=== PATIENT | male | born 1940 | race Caucasian/White ===

== ENCOUNTER 2016-11-18 12:58 | Emergency (ER) | payer OTHER ==
[~2016-11-18] VITALS: Ht 175.3 cm; Wt 90.0 kg
[~2016-11-18 12:58] MED LIST: 1-ME1LIQ PO; ASPI81TA82 PO; BRIM.2%O OU; FISH1000 PO; GLUCTAB PO; LATA.005%O EACH EYE; LEUP30SY SC; LEVO137T2 PO; LORA0.5T PO; MELO15 PO; METO50CR OR; MEVA40TA PO; PERC5TAB12 PO; POLY10O OD; TAMS0.4C67 PO; TRAD5TAB PO
[2016-11-18 13:25] VITALS: BP 107/58; PULSE 84; RESP 18; TEMP 98.3; O2SAT 94
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
[2016-11-18] MEDS ORDERED: LOVA40TA PO (13:42)
[2016-11-18] MEDS ORDERED: LEVO137T2 PO (13:42)
[2016-11-18] MEDS ORDERED: METF500T PO (13:42)
[2016-11-18] MEDS ORDERED: ZITH250T PO (13:42)
[2016-11-18] MEDS ORDERED: TRAD5TAB PO (13:42)
[2016-11-18] MEDS ORDERED: AMLO10TA2 PO (13:42)
[2016-11-18] MEDS ORDERED: AMIT25TA9 PO (13:42)
[2016-11-18] MEDS ORDERED: LATA0.002 LEFT EYE (13:42)
[2016-11-18] MEDS ORDERED: BRIM0.2S4 LEFT EYE (13:42)
[2016-11-18] MEDS ORDERED: FISH1000 PO (13:42)
[2016-11-18] MEDS ORDERED: LORA-373 PO (13:42)
[2016-11-18] MEDS ORDERED: METO100T PO (13:42)
[2016-11-18] MEDS ORDERED: RESP: ALBUTEROL 2.5 MG/3 ML NEB (SCH) INH ONE (13:45)
[2016-11-18 14:46] VITALS: PULSE 94; O2SAT 99
[2016-11-18] MEDS ORDERED: PRED50 PO (14:48)
[2016-11-18] MEDS ORDERED: ALBUAER3 INH (14:48)
[2016-11-18] MEDS ORDERED: BENZ100 PO (14:48)
--- NOTE | 2016-11-18 14:55 | RADRPT ---
EXAM DATE/TIME: 11/18/2016 14:32 [facility] COMPARISON: CHEST SINGLE AP, December 25, 2013, 15:52. INDICATIONS : Short of breath, cough, chest pain with cough MEDICAL HISTORY : Carcinoma, prostatic. Hypertension SURGICAL HISTORY : None. ENCOUNTER: Initial ACUITY: 1 week PAIN SCORE: 8/10 LOCATION: Bilateral chest FINDINGS: A single view of the chest demonstrates a minimal density right lower lobe. Slight elevation right he midiaphragm.. Osseous structures are intact. CONCLUSION: Right basilar atelectasis with slight elevation right hemidiaphragm. Jack Perea MD on November 18, 2016 at 14:53 Board Certified Radiologist. This report was verified electronically.
== END 2016-11-18 15:02 | disposition home or self-care (01) ==
LOC: PHEFT 12:58
DX: J20.9 Acute bronchitis, unspecified (principal); Z87.891 Personal history of nicotine dependence
CPT/HCPCS: 71010; 94664; 99284; J7613

== ENCOUNTER 2017-07-19 10:56 | Emergency (ER) | payer OTHER ==
[~2017-07-19 10:56] MED LIST changes: -1-ME1LIQ PO; +ALBUAER3 INH; +AMIT25TA9 PO; +AMLO10TA2 PO; -ASPI81TA82 PO; +BENZ100 PO; -BRIM.2%O OU; +BRIM0.2S4 LEFT EYE; -GLUCTAB PO; -LATA.005%O EACH EYE; +LATA0.002 LEFT EYE; -LEUP30SY SC; +LOVA40TA PO; -MELO15 PO; +METF500T PO; +METO100T PO; -METO50CR OR; -MEVA40TA PO; -PERC5TAB12 PO; -POLY10O OD; +PRED50 PO; -TAMS0.4C67 PO; +ZITH250T PO
[2017-07-19] MEDS ORDERED: LEVO150T7 PO (11:17)
[2017-07-19] MEDS ORDERED: TIMO0.5S30 EACH EYE (11:17)
[2017-07-19 11:18] VITALS: BP 201/94; PULSE 75; RESP 16; TEMP 98.4; O2SAT 96
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
[2017-07-19 11:50] LABS: AUTOMATED NEUTROPHIL # 4.1 TH/MM3 (1.8-7.7); BASOPHIL % 0.5 % (0.0-2.0); EOSINOPHIL # 0.2 TH/MM3 (0-0.4); EOSINOPHIL % 3.2 % (0.0-4.0); HEMATOCRIT 32.9 % (39.0-51.0); HEMOGLOBIN 10.8 GM/DL (13.0-17.0); LYMPHOCYTE # 1.4 TH/MM3 (1.0-4.8); MEAN CELL VOLUME 84.4 FL (80.0-100.0); MEAN CORPUSCULAR HEMOGLOBIN 27.7 PG (27.0-34.0); MEAN CORPUSCULAR HGB CONC 32.8 % (32.0-36.0); MEAN PLATELET VOLUME 7.2 FL (7.0-11.0); MONO % 8.5 % (0.0-8.0); MONOCYTE # 0.5 TH/MM3 (0-0.9); NEUT % 65.8 % (16.0-70.0); PLATELET COUNT 245 TH/MM3 (150-450); RED CELL DISTRIBUTION WIDTH 15.6 % (11.6-17.2); WHITE BLOOD COUNT 6.2 TH/MM3 (4.0-11.0)
[2017-07-19 11:57] LABS: CALCIUM 8.7 MG/DL (8.5-10.1)
[2017-07-19 11:58] LABS: BICARBONATE 28.7 MEQ/L (21.0-32.0)
[2017-07-19 12:01] LABS: CREATININE 1.3 MG/DL (0.60-1.30)
[2017-07-19] MEDS ORDERED: amLODIPine BESYLATE 5 MG TAB PO ONE (12:30)
[2017-07-19] MEDS ORDERED: LORazepam 2 MG/ML VIAL IV PUSH ONE (12:30)
[2017-07-19 13:26] VITALS: BP 171/77; PULSE 64; O2SAT 96
--- NOTE | 2017-07-19 14:19 | RADRPT ---
EXAM DATE/TIME: 07/19/2017 13:51 [facility] COMPARISON: No previous studies available for comparison. INDICATIONS : CVA. Right sided facial droop. MEDICAL HISTORY : Hypertension. Hypothyroidism. Glaucoma. SURGICAL HISTORY : Right eye, hernia repair, bilateral hands and left knee. ENCOUNTER: Initial ACUITY: 1 day PAIN SCORE: 0/10 LOCATION: Head. TECHNIQUE: Multiplanar, multisequence MRI of the brain was performed without contrast. FINDINGS: CEREBRUM: The ventricles are normal for age. Bilateral cortical active a characteristic for patient's age. No e vidence of midline shift, mass lesion, hemorrhage or acute infarction. No extraaxial fluid collectio ns are seen. The pituitary gland and suprasellar cistern are normal in configuration. WHITE MATTER: No significant signal abnormalities are seen in the white matter. POSTERIOR FOSSA: The cerebellum and brainstem are intact. The 4th ventricle is midline. The cerebellopontine angle is unremarkable. The cerebellar tonsils are normal in position. DIFFUSION IMAGING: No focal areas of restricted diffusion are seen. No evidence of acute infarction. EXTRACRANIAL: The visualized portions of the orbits are unremarkable. Chronic sinus disease the right maxillary sin us. CONCLUSION: 1. Unremarkable MRI of the brain for patient's age. 2. No acute pathology. 3. Chronic right maxillary sinus disease. Alden Ballard MD on July 19, 2017 at 14:16 Board Certified Radiologist. This report was verified electronically.
[2017-07-19] MEDS ORDERED: PRED20 PO (14:22)
[2017-07-19] MEDS ORDERED: predniSONE 20 MG TAB PO ONE (14:30)
--- NOTE | 2017-07-20 00:10 | EKG ---
Date Performed: 07/19/2017 Time Performed: 11:40:12 PTAGE: 77 years EKG: Sinus rhythm MARKED LEFT AXIS DEVIATION NON-SPECIFIC ST/T WAVE CHANGES ABNORMAL ECG PREVIOUS TRACING : 02/01/2016 13.27 Since the prior tracing, there has been no significant iqbal DOCTOR: Harry Hernandez Interpretating Date/Time 07/20/2017 00:09:10
== END 2017-07-19 14:43 | disposition home or self-care (01) ==
LOC: PHED 10:56
DX: G51.0 Bell's palsy (principal); I10 Essential (primary) hypertension; I25.10 Atherosclerotic heart disease of native coronary artery without angina pectoris; E78.00 Pure hypercholesterolemia, unspecified; E03.9 Hypothyroidism, unspecified; E11.9 Type 2 diabetes mellitus without complications; R94.31 Abnormal electrocardiogram [ECG] [EKG]; M19.90 Unspecified osteoarthritis, unspecified site; Z85.46 Personal history of malignant neoplasm of prostate; Z79.84 Long term (current) use of oral hypoglycemic drugs; Z79.899 Other long term (current) drug therapy
CPT/HCPCS: 70551; 80048; 85025; 93005; 96374; 99285; J2060; J7512

== ENCOUNTER 2018-03-20 11:55 | Inpatient (IN) ==
[2018-03-20] MEDS ORDERED: Iohexol 350 MG/ML 100 ML Vial (for Cath Lab) IVCONTRAST ONE (11:56)
[2018-03-20 12:57] LABS: Baso % (Auto) 0.5 % (0.0-2.0); Eos # (Auto) 0.1 th/mm3 (0.0-0.4); Eos % (Auto) 2.1 % (0.0-4.0); Hematocrit 27.8 % (39.0-51.0); Hemoglobin 9.2 gm/dL (13.0-17.0); Lymph # (Auto) 1.4 th/mm3 (1.0-4.8); Lymph % (Auto) 24.8 % (9.0-44.0); Mean Corpuscular HGB Conc 33.1 % (32.0-36.0); Mean Corpuscular Hemoglobin 28.3 pg (27.0-34.0); Mean Corpuscular Volume 85.7 fL (80.0-100.0); Mean Platelet Volume 6.9 fL (7.0-11.0); Mono # (Auto) 0.6 th/mm3 (0.0-0.9); Mono % (Auto) 9.7 % (0.0-8.0); Neut # (Auto) 3.7 th/mm3 (1.8-7.7); Neut % (Auto) 62.9 % (16.0-70.0); Platelet Count 211 th/mm3 (150-450); Red Blood Count 3.24 mil/mm3 (4.50-5.90); Red Cell Distribution Width 17.9 % (11.6-17.2); White Blood Count 5.8 th/mm3 (4.0-11.0)
[2018-03-20 13:12] LABS: Activated Partial Thrombo Time 35.9 sec (23.4-31.7); INR 1.1 Ratio; Prothrombin Time 10.8 sec (9.8-11.6)
[2018-03-20 13:17] LABS: Calcium 8.8 mg/dL (8.5-10.1); Carbon Dioxide 28.8 meq/L (21.0-32.0); Potassium 4.1 meq/L (3.5-5.1)
[2018-03-20] MEDS ORDERED: Heparin 10,000 UNITS/10 ML Vial (for IV use) ONE (13:29)
[2018-03-20] MEDS: Sod Chloride 0.9% Inj 1,000 ML IV.CONT SCH (13:30)
[2018-03-20] MEDS ORDERED: fentaNYL Citrate Inj 100 MCG/2 ML Ampul ONE (13:34)
--- NOTE | 2018-03-20 14:57 | CATHPROC ---
[employer] HIS Report Study Information Study Number Admission Scheduled Start Study Start [id number] Mar 20 2018 11:55AM 03/20/2018 Mar 20 2018 1:22PM [place] [facility] Electrophysiology Study Admit Source Facility Department Other [facility] Manager Physician and Clinical Staff Initial Harry Bonner Rent Collector Arely Tena RN Rent Collector Kamari Cordova RN Recorder Zhanna Grimaldo,FORMULATOR COMPOUNDER TECH2 Scrub Kristin Winters,MANAGER OF SUSTAINABILITY TECH2 Procedures Performed Procedure Location (Site) Vessel Name Coronary Angiograms LCA Left Coronary Coronary Angiograms RCA Right Coronary IVUS Lft Main Left Coronary Wire insertion Radial (right) Radial Art. Equipment Time Assembler Leather Goods Description Size Mfg Part Number Used/Scraped WIRE, BALANCE MIDDLEWEIGHT [id number] 14:19 [employer] 190CM Used 190CM *[id number] CATHETER, FR5 SWAN DAMIAN 13:55 [place] [employer] [place] FR 5 [id number] *[id number] Used MONITOR TRANSDUCER, TRUWAVE [id number] 13:23 STOCKTON PATEL * Used W/STOCKCOCK *[id number] 534-518T *[id number] 534-523T *[id number] 13:23 RebelMouse BLANKET,WARM AIR CCL * Used *[id number] 13:23 RebelMouse PACK, CCL CUSTOM * Used *[id number] 13:23 RebelMouse SUPPORT, ARTERIAL ADULT 11229 *[id number] Used [id number] 14:16 MEDTRONIC/AVE EBU 3.5 Z2 GUIDE CATHETER FR 6 Used *[id number] BAND, RADIAL COMPRESSION TR [id number] 14:40 [employer] 29CM Used LARGE 29 *[id number] 13:23 [employer] WIRE, EXCHANGE 260CM 3MMJ 260CM Used *[id number] 13:23 NAMIC MANIFOLD, 4 PORT * Used *[id number] 13:23 NYCOMED OMNIPAQUE, 350 MG, 150ML 150ML [id number] Used SHEATH, FR6 TRANSRADIAL 80-1060 13:53 TERUMO [employer] FR 6 Used SLENDER 10CM *[id number] SHEATH, FR6 TRANSRADIAL 80-1060 13:23 TERUMO [employer]ICAL FR 6 Used SLENDER 10CM *[id number] CATHETER, MAKAH EYE [place] [id number] 14:21 [employer]OL[employer] Used IMAGING *[id number] CATHETER, MAKAH EYE [place] [id number] 14:27 VOLCANO Used IMAGING *[id number] Equipment Model, Serial, Lot Number and Expiration Data Description Model Number Serial Number Lot Number Expiration Date CATHETER, MAKAH EYE [place]-B[place]OXI 32394 [id number] 12-12-2019 IMAGING CATHETER, MAKAH EYE [place] [id number] 10-12-2019 IMAGING History: Current Medications Medication Dosage/Unit Route Frequency Last Date/Time Taken LOPRESSOR Glucophage Statins (any) Synthroid Glypizide NORVASC History: Allergies Allergy Reaction No Known Allergies History: Risk Factors Family History of Hypertension Dyslipidemia Previous DC Previous Heart Failure Premature CAD Yes Yes No No No Prior Valve Prior PCI Prior CABG Surgery No No No Cerebrovascular Peripheral Artery Chronic Lung On Dialysis Diabetes Diabetes Therapy Disease Disease Disease No No No Yes Yes Oral History: Symptoms/Diagnosis Selection Items Chest pain History: Stress Tests Stress or Imaging Studies Performed Yes Standard Exercise Stress Test No Stress Echo No Stress Test SPECT Stress Test SPECT Result Stress Test SPECT Ischemia Risk/Extent Yes Positive Low Stress Test CMR No Cardiac CTA Coronary Calcium Score No No History: Other Disease Selection Items Gerd History: Other Current Smoker Method Quit Packs a Day Years Used Pack Years No Cigarettes 10 Years Ago 1 50 50 Labs Hgb (g/dl) Hct (%) WBC (l/cumm) Platelets (thousands) 11.60-17.00 35.00-51.00 4.00-11.00 150.00-450.00 9.2 27.8 5.8 211 Glucose (mg/dl) BUN (mg/dl) Creatinine (mg/dl) BUN:Creatinine (1:x) 74.00-106.00 7.00-18.00 0.50-1.30 10.00-20.00 107 26 1.4 18.6 Na (meq/l) K (meq/l) 136.00-145.00 3.50-5.10 140 4.1 INR (PTT:PT) 0.90-1.10 1.1 CPK-MB (ng/ML) 0.50-3.60 Not Drawn Medication Medication Total Dose (Bolus/Oral) Medication Total Dosage/Unit 1% XYLOCAINE 10 mL FENTANYL 100 mcg HEPARIN 5400 units RADIAL COCKTAIL 5 mL (Bolus) Medications (Bolus/Oral) Medication Time Given Dosage/Unit Administered By Reason FENTANYL 03/20/2018 1:47:06 PM 50 mcg Arely Tena 50 mcg FENTANYL given in lab by Arely Tena RN in Left Antecubital via Peripheral IV. Ordered by Harry Hernandez 1% XYLOCAINE 03/20/2018 1:47:12 PM 5 mL Harry Hernandez 5 mL 1% XYLOCAINE given in lab by Harry Hernandez in Right Radial via Subcutaneous. Ordered by Harry Fontana RADIAL COCKTAIL 03/20/2018 1:49:26 PM 5 mL (Bolus) Harry Hernandez 5 mL (Bolus) RADIAL COCKTAIL given in lab by Harry Hernandez in Right Radial via Radial. Using [S olution Name]. Ordered by Harry Hernandez Reason: Ntg 200mcg Verapamil 2.5mg Heparin 3600U. 1% XYLOCAINE 03/20/2018 1:49:42 PM 5 mL Harry Hernandez 5 mL 1% XYLOCAINE given in lab by Harry Hernandez in Right Antecubital via Subcutaneous. Ordered by Harry Hernandez HEPARIN 03/20/2018 2:17:04 PM 5400 units Arely Tena 5400 units HEPARIN given in lab by Arely Tena, DHARA in Left Antecubital via Peripheral IV. Ordered by Harry Hernandez FENTANYL 03/20/2018 2:31:25 PM 50 mcg Arely Tena 50 mcg FENTANYL given in lab by Arely Tena, DHARA in Left Antecubital via Peripheral IV. Ordered by Harry Hernandez Medication (Drip) Medication Time Given Dosage/Unit Concentration/Unit Diluent (ml) Solution IV Solutions 03/20/2018 1:23:38 PM 50 mL (IV) NaCl .9 Patient arrived on IV Solutions in Left Antecubital via Peripheral IV. Pump/Drip Flow using NaCl .9. Initial Case Assessment Cardiovascular HR NIBP Chest Pain 91 148/91 0 Neurological State Oriented to time-place- Alert Moves all extremities person Respiration - General Respiration Rate SpO2 (%) (B/min) 20 96 Final Case Assessment Cardiovascular HR Rhythm NIBP Chest Pain 78 sr 157/84 0 Circulatory - Right Pulses Dorsalis Pedis Femoral Brachial 2 2 2 Scale (0,1,2,3,4,d) Scale (0,1,2,3,4,d) Neurological State Oriented to time-place- Alert Moves all extremities person Respiration - General Respiration Rate SpO2 (%) (B/min) 12 93 Chronological Log Time Study Chronological Log 13:15:16 Patient arrived via Bed. 13:15:21 Patient Name, D.O.B, / Armband Verified By R.N. 13:17:29 Pre-op and post- op instructions given; patient acknowledges understanding of instructions. Vitals capture started with the following parameters, Patient=Adult, Interval=5 min, Initial Pr lcicqe=533 mmHg, 13:22:13 Deflation Rate=5 mmHg, Cuff placed on Left Arm 13:22:27 Consent signed by the physician and the patient and verified by the Cultural [facility] Manager staff. 13:22:33 Verbal Stimulation=2 Physical Stimulation=2 Airway=2 Respiration=2 TOTAL=8. (0=absent, 1=li mited, 2=present) 13:23:31 Presedation assessment performed by Cultural Centre Manager RN. 13:23:32 HR=81 bpm, NHHA=356/91 mmhg, SpO2=96.0 %, Resp=14 B/min, Pain=0, Reich=2 13:23:34 Patient has been NPO for More than 6Hrs. 13:23:35 Skin Breakdown-none 13:23:36 Raf Prominences Protected 13:23:37 A # 20 IV was noted in the Antecubital (left). Grade = 0 13:23:38 Patient arrived on IV Solutions in Left Antecubital via Peripheral IV. Pump/Drip Flow using NaCl .9. 13:23:40 History and physical on the chart or being dictated. Assessment: Initial Case, HR=91 BPM, HAVA=347/91 mmhg, Chest Pain=0 13:23:40 Neurological: State=Alert, Ox3, HINOJOSA Respiration: Resp=20 B/min, SpO2=96 % 13:27:56 HR=82 bpm, FWRY=474/99 mmhg, SpO2=95.0 %, Resp=15 B/min 13:30:54 Right Radial, brachial and groin(s) prepped with 2% chlorhexidine, and draped after a 3 min . waiting time. 13:32:46 Reference ECG taken 13:32:56 HR=79 bpm, PMQX=498/99 mmhg, SpO2=95.0 %, Resp=17 B/min 13:36:35 Pressure channel 1 zeroed. 13:37:59 HR=75 bpm, FEMJ=171/79 mmhg, SpO2=94.0 %, Resp=20 B/min 13:40:40 MD arrived. 13:43:00 HR=76 bpm, AEDG=514/76 mmhg, SpO2=95.0 %, Resp=8 B/min Time Out. Correct patient, correct procedure, correct physician, labs, allergies, and equipment verified with dental laboratory manager 13:46:53 team present. Fire risk assesment completed (see hard stop sheet for coding). Time Out Conc urred by MD and individual staff in procedure. 13:47:04 Case Start 50 mcg FENTANYL given in lab by Arely Tena RN in Left Antecubital via Peripheral IV. Orde red by David 13:47:06 Harry Guidry. 5 mL 1% XYLOCAINE given in lab by Harry Hernandez in Right Radial via Subcutaneous. Ordered by David 13:47:12 Harry Carter 13:47:57 HR=77 bpm, BOGF=991/86 mmhg, SpO2=96.0 %, Resp=27 B/min 13:48:13 Access site was Right Radial Artery . A SHEATH, FR6 TRANSRADIAL SLENDER 10CM FR 6 was advanced into the Radial (right) using the Perc utaneous 13:49:02 technique. 5 mL (Bolus) RADIAL COCKTAIL given in lab by Harry Hernandez in Right Radial via Radial. Us ing [Solution Name]. 13:49:26 Ordered by Harry Hernandez. Reason: Ntg 200mcg Verapamil 2.5mg Heparin 3600U. 5 mL 1% XYLOCAINE given in lab by Harry Hernandez in Right Antecubital via Subcutaneous. Or dered by David, 13:49:42 Harry Carter 13:51:57 Access site was Right Brachial Vein. Right A SHEATH, FR6 TRANSRADIAL SLENDER 10CM FR 6 was advanced into the Brach. Vein (right) using the Percutaneous 13::54 technique. 13:52:58 HR=74 bpm, WSJR=666/70 mmhg, SpO2=89.0 %, Resp=17 B/min 13:54:05 A CATHETER, FR5 SWAN DAMIAN MONITOR FR 5 was inserted via Brach. Vein (right) Recorded Pressure: PCW, HR=77, Condition=Condition 1 13:55:39 (Pulmonary Capillary Wedge) PCW Recorded Pressure: MPA, HR=67, Condition=Condition 1 13:57:37 (Main Pulmonary Artery) MPA 13:57:59 HR=70 bpm, TZSH=681/71 mmhg, SpO2=87.0 %, Resp=14 B/min 13:58:08 Saturation: Site=PA (Pulmonary Artery) , O2=41.7 %, Hgb=9.2 gm/dl, Condition=Condition 1. U sed in calculation. Recorded Pressure: RV, HR=70, Condition=Condition 1 13:58:50 (Right Ventricle) RV 10/02/11 Recorded Pressure: RA, HR=69, Condition=Condition 1 13:59:27 (Right Atrium) RA 13:59:42 Saturation: Site=Ao (Aorta) , O2=92.8 %, Hgb=9.2 gm/dl, Condition=Condition 1. Used in calc ulation. 14:00:13 [place] Admian Catheter Removed A JR 5.0 INFINITI CATHETER FR 5 was advanced over a wire. OMNIPAQUE, 350 MG, 150ML 150ML was us ed for 14:01:50 injections. 14:02:56 HR=75 bpm, MQFT=019/73 mmhg, SpO2=91.0 %, Resp=26 B/min Recorded Pressure: LV, HR=74, Condition=Condition 1 14:04:51 (Left Ventricle) LV 137/10/15 Recorded Pressure: LV, Ao, HR=73, Condition=Condition 1 14:05:12 (Left Ventricle) LV 142/10/16, (Aorta) Ao 136/63/95 14:08:01 HR=76 bpm, GASS=589/78 mmhg, SpO2=91.0 %, Resp=21 B/min 14:09:14 The RCA was injected and visualized at various angles. OMNIPAQUE, 350 MG, 150ML 150ML used . After removing the current catheter a JL 3.5 INFINITI CATHETER FR 5 was advanced over a WIRE, E XCHANGE 260CM 14:10:08 3MMJ 260CM. 14:12:53 The LCA was injected and visualized at various angles. OMNIPAQUE, 350 MG, 150ML 150ML used . 14:13:02 HR=75 bpm, ZMCZ=219/70 mmhg, SpO2=92.0 %, Resp=15 B/min After removing the current catheter a EBU 3.5 Z2 GUIDE CATHETER FR 6 was advanced over a WIRE, EXCHANGE 14:16:34 260CM 3MMJ 260CM. 5400 units HEPARIN given in lab by Arely Tena, RN in Left Antecubital via Peripheral IV. O rdered by David, 14:17:04 Harry Carter 14:17:59 HR=80 bpm, JPXT=259/84 mmhg, SpO2=93.0 %, Resp=9 B/min 14:19:22 A WIRE, BALANCE MIDDLEWEIGHT 190CM 190CM was inserted via Radial (right). 14:23:02 HR=78 bpm, EYRP=237/82 mmhg, SpO2=89.0 %, Resp=17 B/min 14:28:01 HR=74 bpm, CMKP=237/77 mmhg, SpO2=94.0 %, Resp=32 B/min 14:29:45 An CATHETER, MAKAH EYE [place]OXI IMAGING was advanced through the lesion. Images saved o [employer] IVUS hard drive 14:30:04 IVUS in progress using CATHETER, MAKAH EYE [place] IMAGING Mean Luminal Area measured 6 50 mcg FENTANYL given in lab by Arely Tena, DHARA in Left Antecubital via Peripheral IV. Orde red by David, 14:31:25 Harry Carter 14:33:04 HR=77 bpm, EDIE=502/76 mmhg, SpO2=93.0 %, Resp=12 B/min 14:35:54 IVUS catheter removed 14:37:19 Wire removed Recorded Pressure: AoP, HR=82, Condition=Condition 1 14:37:27 (AO post) AoP 159/68/110 14:38:03 HR=79 bpm, FBJH=864/84 mmhg, SpO2=92.0 %, Resp=12 B/min 14:38:33 Catheter was removed 14:38:34 Activated Clotting Time Drawn 14:38:48 Case End (Physician broke scrub) Radial Compression Device Used. 14 mLs of air placed in BAND, RADIAL COMPRESSION TR LARGE 29 29 CM. Affected 14:40:24 hand 93 % O2 saturation. 14:42:35 Vitals capture stopped. 14:42:43 No case complications noted. 14:42:44 Cine recording checked. Assessment: Final Case, HR=78 BPM, Rhythm=sr, OYFG=027/84 mmhg, Chest Pain=0 Right Pulses: Xavi Ped=2, Femoral=2, Brachial=2 14:44:46 Neurological: State=Alert, Ox3, HINOJOSA Respiration: Resp=12 B/min, SpO2=93 % 14:46:27 ACT (Normal Range 90-180) = 332 14:49:54 Patient moved to bed 14:50:52 Patient transported to DOCU End Study - Contrast Media Used In Study Contrast Total Opened (mL) Total Used (mL) Total Wasted (mL) Omnipaque 75 75 0 End Study - Maximum Contrast Load Max Contrast Load (mL) 323.2 End Study - Radiation Exposure Fluoro Time (minutes) 12.0 End Study - Sheaths Sheaths Pulled By Sheath Hold Time (min) Kristin Winters End Study - Patient Disposition Complications Transferred To Interventional Outcome No Telemetry Bed No attempt made
[2018-03-20] MEDS: Metoprolol Tartrate 50 MG Tablet PO SCH (20:28)
[2018-03-20] MEDS: Heparin Drip 25,000 UNIT/250 ML BAG IV.CONT PRN (20:29)
[2018-03-20] MEDS: Polymyxin/Trimethop Opth Drops 10 ML Bottle EACH EYE SCH ×2 (21:00→22:27)
[2018-03-20] MEDS: Brimonidine 0.2% Opth Drops 5 ML Bottle EACH EYE SCH (22:26)
[2018-03-20] MEDS: LORazepam 0.5 MG Tablet PO PRN (22:26)
--- NOTE | 2018-03-21 02:00 | MB ---
cc: Harry Hernandez DO DATE: 03/20/2018 REASON FOR CONSULTATION: Coronary artery disease. HISTORY OF PRESENT ILLNESS: Devyn Lambert is a pleasant 77-year-old male, whom I see in the office and previously underwent stress testing, which showed no significant ischemia. He continued to have chest pain and shortness of breath with very little activity, and his states that he can barely walk to the mailbox and back without stopping. He has also started noticing chest burning with long walks, and this has gotten more frequent. Because of this, he underwent cardiac catheterization. During the procedure, he was found to have significant left main disease and a left dominant system. Because of this, he was recommended admission and placement on a heparin drip as well as evaluation by CT surgery. In seeing him, he is currently hemodynamically stable without chest pain or shortness of breath. PAST MEDICAL HISTORY: 1. Coronary artery disease. 2. Anxiety. 3. Aortic valve sclerosis. 4. Chronic kidney disease stage II. 5. COPD. 6. Depression. 7. Diabetes mellitus. 8. Hypertension. 9. Hyperlipidemia. 10. History of prostate cancer. PAST SURGICAL HISTORY: 1. Cardiac catheterization (03/20/2018) with 60% left main disease (IVUS 6.0 sq mm) and mild luminal irregularities, otherwise in a left dominant system. 2. Left carpal tunnel release. 3. Cystoscopy. 4. Eye surgery. 5. Hernia repair. 6. Knee arthroscopy. 7. Throat surgery. 8. Tonsillectomy. 9. Trigger finger release. ALLERGIES: NO KNOWN DRUG ALLERGIES. MEDICATIONS: 1. Polymyxin B ophthalmic drop. 2. Metoprolol tartrate 50 mg b.i.d. 3. Metformin 500 mg b.i.d. 4. Lovastatin 40 mg daily. 5. Ativan 0.5 mg b.i.d. as needed. 6. Fish oil 1 cap daily. 7. Synthroid 150 mcg daily. 8. Latanoprost 1 drop every night. 9. Glipizide 5 mg daily. 10. Brimonidine 0.2% t.i.d. 11. Norvasc 5 mg daily. 13. Alendronate 70 mg weekly. FAMILY HISTORY: Mother had colon cancer. He had a sister with brain cancer. His father had congestive heart failure. SOCIAL HISTORY: The patient rarely drinks alcohol. He previously smoked, stopping around 10 years ago. REVIEW OF SYSTEMS: Fourteen systems were reviewed including osteopathic. Pertinent positives and negatives above, otherwise negative. PHYSICAL EXAMINATION: VITAL SIGNS: Temperature 98.5, heart rate 72, blood pressure 146/79, respirations 16, pulse oximetry 99% on room air. GENERAL: The patient appears well, in no acute distress. Alert, awake, and oriented x3. HEENT: Extraocular muscles intact. Mucous membranes moist. NECK: Supple. No JVD at 45 degrees. No carotid bruits heard bilaterally. Carotid upstroke is brisk in nature. HEART: Regular rate and rhythm. Positive first and second heart tones with no noted murmurs, gallops, or rubs. LUNGS: Clear to auscultation bilaterally. No wheezes, rales, or rhonchi. ABDOMEN: Soft, nontender, nondistended. No organomegaly noted. EXTREMITIES: No clubbing, cyanosis, or edema. Femoral and distal pulses are intact bilaterally. NEUROLOGIC: No focal deficits. SKIN: Warm, dry, and intact. OSTEOPATHIC: No kyphoscoliosis, lordosis, or paraspinal tender points. LABORATORY DATA: Hemoglobin 9.2, hematocrit 27.8, platelets 211. Potassium 4.1, BUN 26, creatinine 1.46. IMPRESSION: 1. Unstable angina, [place] anginal class III. 2. Multivessel coronary artery disease with left main disease in the left dominant system. 3. Hypertension. 4. Hyperlipidemia. 5. General anxiety. 6. Depression. RECOMMENDATIONS: 1. Mr. Lambert underwent cardiac catheterization and was found to have significant left main disease and a left dominant system. Because of this, he will be recommended consideration of coronary artery bypass grafting. 2. Due to the significance of his disease, specifically in a left dominant system, I have recommended that he be admitted and placed on a heparin drip. Heparin drip will be started 1 hour after TR band is placed. 3. He underwent an echocardiogram in the office in 12/2017 and on this was found to have an ejection fraction of 55%-60% with stage I diastolic dysfunction, mild mitral regurgitation, and trace aortic regurgitation. 4. Cardiothoracic surgery will be consulted, and I discussed the case with Dr. Hernandez. 5. Further recommendations will be made based on the hospital course. Thank you for allowing me to see Devyn Lambert. If there are any questions, please do not hesitate to call. DO NILES Cox/roland , 01:07 AM , 01:18 AM
--- NOTE | 2018-03-21 02:09 | MA ---
cc: Harry Hernandez DO DATE: 03/20/2018 PROCEDURES: Left heart catheterization, right heart catheterization, coronary angiogram, intravascular ultrasound of left main, ultrasound-guided access. PREPROCEDURE DIAGNOSIS: Continued chest pain and shortness of breath, concerning for coronary insufficiency ([place] anginal class III) with a normal stress test. POSTPROCEDURE DIAGNOSES: Left main disease in a left dominant system, mild pulmonary hypertension. MEDICATIONS: Fentanyl 100 mcg, heparin 9000 units, nitroglycerin 200 mcg, verapamil 2.5 mg. CONTRAST USED: 75 mL FLUOROSCOPY: 12.0 minutes. MONITORED SEDATION: 0 minutes. FRAILTY SCORE: 4 ESTIMATED BLOOD LOSS: 10 mL PROCEDURAL SUMMARY: Devyn Lambert is a pleasant 77-year-old male, whom I see in the office and underwent stress testing which showed no ischemia. He continued to have chest pain and shortness of breath with minimal exertion, and because of this, he was recommended cardiac catheterization. Risks, benefits, and alternatives were explained to him, and he consented to such. He was brought to the lab and prepped in the usual sterile fashion. The right radial artery was accessed using modified Seldinger technique and placement of a 5/6-[place]amb[place] slender sheath. This was easily aspirated and flushed. Right brachial vein was accessed using a modified Seldinger technique and ultrasound guidance and placement of a 5/6-[place] sheath. This was easily aspirated and flushed. A [place] catheter was advanced from the brachial vein to a wedge position. Oxygenations as well as pressures were done in a standard pullback fashion throughout the heart. [place] catheter was removed. A JR5 was advanced to the ascending aorta and across the aortic valve for measurement of left ventricular pressure. This was pulled back across the aortic valve showing no significant gradient of aortic stenosis. JR5 was used for selective angiography of the right coronary artery system. This is exchanged out for a JL3.5 which was used for selective angiography of the left coronary artery system. Due to significant dampening with a JL3.5, I felt that the left main needed to be further evaluated. An EBU 3.5 guide was engaged in the left main. The patient was given additional heparin as an anticoagulant. BMW wire was advanced down the LAD. IVUS catheter was placed into the LAD, and recordings were done upon pullback. Review of the images shows that the ostial left main has a minimal luminal area of 6.0 sq mm. Wire was removed, and final angiogram shows no disruption of the coronary anatomy. The radial band was placed over the arteriotomy site for hemostasis. The patient left the catheterization lab cardiovascularly stable. FINDINGS: Left main: Normal-sized vessel with 60% ostial stenosis. It bifurcates into an LAD and circumflex. LAD: Moderate size vessel with mild luminal irregularities throughout the proximal portion. Mid portion appears to have 30% disease. Distally, no significant disease. It gives off 1 major diagonal with no significant disease. LEFT CIRCUMFLEX: Moderate size vessel, which gives off 2 obtuse marginals as well as a posterior descending branch. It has no significant disease throughout. RCA: Small, nondominant vessel which supplies multiple RV branches. HEMODYNAMICS: RA 9. RV 39/9, RVEDP 11. PA 33/17, mean PA 24. Wedge 16. LVEDP 16. IMPRESSION: 1. Unstable angina, [place] anginal class III. 2. Left main disease (minimal luminal area of 6.0 sq mm) in a left dominant system. 3. Mild pulmonary hypertension (mean pulmonary artery pressure of 24). RECOMMENDATIONS: 1. Mr. Lambert appears to have significant left main disease in a left dominant system. As he has had continued chest pain and shortness of breath with minimal exertion, I feel that he needs to be admitted and placed on heparin drip in anticipation of surgery. 2. CT surgery has been consulted, and I discussed the case with Dr. Carrera who will see him in consultation in the morning. 3. Previous echocardiogram in the office (12/2017) showed normal function with mild mitral regurgitation and trace aortic regurgitation. 4. Further recommendations will be made based on hospital course. Thank you for allowing me to see Devyn Lambert. If you have any questions, please do not hesitate to call. Harry Hernandez DO VGP/rm , 01:16 AM , 01:29 AM
[2018-03-21 02:39] LABS: Baso % (Auto) 0.3 % (0.0-2.0); Eos # (Auto) 0.1 th/mm3 (0.0-0.4); Eos % (Auto) 1.5 % (0.0-4.0); Hematocrit 25.3 % (39.0-51.0); Lymph # (Auto) 1.8 th/mm3 (1.0-4.8); Mean Corpuscular HGB Conc 35.6 % (32.0-36.0); Mean Corpuscular Hemoglobin 29.3 pg (27.0-34.0); Mean Corpuscular Volume 82.2 fL (80.0-100.0); Mean Platelet Volume 6.6 fL (7.0-11.0); Mono # (Auto) 0.7 th/mm3 (0.0-0.9); Mono % (Auto) 10.2 % (0.0-8.0); Neut # (Auto) 4.4 th/mm3 (1.8-7.7); Platelet Count 194 th/mm3 (150-450); Red Blood Count 3.08 mil/mm3 (4.50-5.90); Red Cell Distribution Width 17.7 % (11.6-17.2); White Blood Count 7.1 th/mm3 (4.0-11.0)
[2018-03-21 02:55] LABS: Calcium 8.5 mg/dL (8.5-10.1); Potassium 3.9 meq/L (3.5-5.1)
[2018-03-21] MEDS: Polymyxin/Trimethop Opth Drops 10 ML Bottle EACH EYE SCH ×6 (04:48→18:34)
[2018-03-21] MEDS: Levothyroxine 150 MCG Tablet PO SCH (05:04)
[2018-03-21] MEDS ORDERED: Non-Formulary Drug (Omega-3 Fatty Acids-Fish Oil [Fish Oil] 1 CAP) PO SCH (09:00)
[2018-03-21] MEDS ORDERED: glipiZIDE 5 MG Tablet PO SCH (09:00)
[2018-03-21] MEDS: Brimonidine 0.2% Opth Drops 5 ML Bottle EACH EYE SCH ×2 (09:20→18:34)
[2018-03-21] MEDS: Metoprolol Tartrate 50 MG Tablet PO SCH ×2 (09:20→21:17)
[2018-03-21] MEDS: amLODIPine 5 MG Tablet PO SCH (09:20)
[2018-03-21] MEDS ORDERED: Dextrose 50% in Water 50 ML Vial IV.PUSH PRN ×2 (10:03→22:21)
--- NOTE | 2018-03-21 10:03 | P.HP ---
History of Present Illness Primary Care Physician: Nixon Mata MD History of Present Illness: 77-year-old white male admitted for unstable angina. Patient was in his usual state of health until over the last month or so when his noted that he began having increasing episodes of exertional dyspnea with exertional angina. Patient denies having nausea vomiting, denies any diaphoresis with these episodes. No lower extremity edema. Says he underwent an outpatient cardiac catheterization scheduled by his flue cleaner and subsequently was admitted afterwards based upon his catheterization findings which included significant left main disease in the left dominant system. Patient has been started on a heparin drip by cardiology and CT surgery has been consulted. Inpatient Certification: I certify that the inpatient services were ordered in accordance with Medicare regulations governing the order. This includes certification that hospital inpatient services are reasonable and necessary and in the case of services not specified as inpatient-only under 42 CFR 419.22(n), that they are appropriately provided as inpatient services in accordance to with the 2-midnight benchmark under 43 CFR 412.3(e) Estimated Total Length of Stay (Days): 7 Plans for Post Hospital Care: Not yet determined Review of Systems All other systems reviewed negative except as stated in HPI [facility] - History History Provided By: Patient - Medical History Medical History: Medical History (Last Reviewed 03/21/18 @ 10:00 by Serg Galicia MD) Anxiety Aortic stenosis CKD (chronic kidney disease), stage II HLD (hyperlipidemia) HTN (hypertension) Hypothyroid Neuropathy Prostate cancer Shortness of breath - Family History Family History: Family History (Last Updated 03/21/18 @ 10:01 by Serg Galicia MD) Other Diabetes - Social History I have reviewed the patient's Social History: Yes - Tobacco History Smoking Status: Former smoker - Alcohol History How Often Do You Have a Drink Containing Alcohol: 2 to 4 times a month Medications and Allergies Active Medications: Active Medications Amlodipine Besylate (Norvasc) 5 mg PO DAILY [facility] Aspirin (Ecotrin) 81 mg PO DAILY [facility] Brimonidine Tartrate (Alphagan 0.2% Opth Drops) 1 drops EACH EYE TID [facility] Last Admin: 03/20/18 22:26 Dose: 1 drops Glipizide (Glucotrol) 5 mg PO DAILY [facility] Sodium Chloride (Ns Inj) 1,000 mls @ 30 mls/hr IV.CONT .Q24H [facility] Last Infusion: 03/20/18 17:47 Dose: 30 mls/hr Heparin Sodium/Dextrose (Heparin/D5w 25,000 U/250 Ml) 25,000 unit in 250 mls @ 0 mls/hr IV.CONT TITRATE PRN; Protocol PRN Reason: Per Protocol Last Titration: 03/21/18 02:55 Dose: 1,100 units/hr, 11 mls/hr Latanoprost (Xalatan 0.005% Opth Drops) 1 drop EACH EYE QPM [facility] Levothyroxine Sodium (Synthroid) 150 mcg PO DAILY@0600 [facility] Last Admin: 03/21/18 05:04 Dose: 150 mcg Lorazepam (Ativan) 0.5 mg PO BID PRN PRN Reason: Anxiety Last Admin: 03/20/18 22:26 Dose: 0.5 mg Metoprolol Tartrate (Lopressor) 50 mg PO BID [facility] Last Admin: 03/20/18 20:28 Dose: 50 mg Polymyxin/Trimethoprim Sulfate (Polytrim Opth Drops) 1 drop EACH EYE Q3H [facility] Last Admin: 03/21/18 05:04 Dose: Not Given Pravastatin Sodium (Pravachol) 40 mg PO DAILY [facility] Sodium Chloride (Ns Flush) 2 ml IV.FLUSH BID [facility] Last Admin: 03/20/18 20:31 Dose: 2 ml Sodium Chloride (Ns Flush) 2 ml IV.FLUSH PRN PRN PRN Reason: FLUSH AFTER USING IV ACCESS Allergies Allergy/AdvReac Type Severity Reaction Status Date / Time No Known Allergies Allergy Verified 03/20/18 12:49 Home Medications Medication Instructions Recorded Confirmed Type alendronate 70 mg PO QWEEK 03/20/18 03/20/18 History amlodipine 5 mg PO DAILY 03/20/18 03/20/18 History brimonidine 1 drp OPHTHALMIC (EYE) TID 03/20/18 03/20/18 History glipizide 5 mg PO DAILY 03/20/18 03/20/18 History latanoprost 1 drp OPHTHALMIC (EYE) QPM 03/20/18 03/20/18 History levothyroxine 150 mcg PO DAILY 03/20/18 03/20/18 History lorazepam 1 tab PO BID PRN 03/20/18 03/20/18 History lovastatin 40 mg PO DAILY 03/20/18 03/20/18 History metformin 500 mg PO BID 03/20/18 03/20/18 History metoprolol tartrate 50 mg PO BID 03/20/18 03/20/18 History omega-3 fatty acids-fish oil [Fish 1 cap PO DAILY 03/20/18 03/20/18 History Oil] polymyxin B sulf-trimethoprim 1 drp OPHTHALMIC (EYE) Q3H 03/20/18 03/20/18 History Exam Vital signs: Vital Signs 03/20/18 13:01 03/20/18 15:02 03/20/18 17:06 Temperature 98.5 F Pulse Rate 72 88 Respiratory Rate 16 16 Blood Pressure 146/79 H 150/76 H Pulse Oximetry 99 95 94 L 03/20/18 20:00 03/20/18 21:00 03/20/18 22:00 Temperature 98.1 F Pulse Rate 91 H 91 H 89 Respiratory Rate 20 Blood Pressure 168/86 H Pulse Oximetry 95 03/20/18 23:00 03/21/18 00:00 03/21/18 02:00 Temperature 98.0 F Pulse Rate 81 79 78 Respiratory Rate 20 Blood Pressure 143/79 H Pulse Oximetry 95 03/21/18 04:00 03/21/18 06:00 03/21/18 07:00 Temperature 98.2 F Pulse Rate 85 83 89 Respiratory Rate 20 Blood Pressure 145/76 H Pulse Oximetry 96 03/21/18 08:36 Temperature 98.3 F Pulse Rate 87 Respiratory Rate 18 Blood Pressure 157/82 H Pulse Oximetry 95 Intake & Output 03/20/18 03/21/18 03/21/18 18:59 06:59 18:59 Intake Total 740 / 740 240 / 240 Output Total 150 / 150 400 / 400 Balance 590 / 590 -160 / -160 Weight 90.5 kg 90.7 kg Intake: IV 500 / 500 NS Inj 1,000 ML @ 30 mls/hr IV. 500 / 500 CONT .Q24H [facility] Rx#:[id number] Oral 240 / 240 240 / 240 Output: Urine 150 / 150 400 / 400 Other: Date of Last Bowel Movement 03/20/18 # Bowel Movements 0 Weight On Admission 90.5 kg Narrative: VS: afebrile GENERAL: Well-nourished elderly white male, no acute distress SKIN: Warm and dry. EYES: No scleral icterus. No injection or drainage. ENT: No nasal bleeding or discharge. Mucous membranes pink and moist. CARDIOVASCULAR: Regular rate and rhythm. no murmurs RESPIRATORY: No accessory muscle use. Clear to auscultation. Breath sounds equal bilaterally. GASTROINTESTINAL: Abdomen soft, non-tender, nondistended. Extremities: No clubbing, cyanosis, or edema. No obvious deformities. MUSCULOSKELETAL:adequate muscle bulk and tone for age and habitus NEUROLOGICAL: Awake and alert. No obvious cranial nerve deficits. No facial droop nor slurred speech noted. PSYCHIATRIC: Appropriate mood and affect; insight and judgment normal. Results - Labs CBC & Chem 7: 03/21/18 02:30 03/21/18 02:30 Labs: Laboratory Results - last 24 hr 03/20/18 03/20/18 03/20/18 12:30 12:30 12:30 WBC 5.8 RBC 3.24 L Hgb 9.2 L Hct 27.8 L MCV 85.7 MCH 28.3 MCHC 33.1 RDW 17.9 H Plt Count 211 MPV 6.9 L Neut % (Auto) 62.9 Lymph % (Auto) 24.8 [place] % (Auto) 9.7 H Eos % (Auto) 2.1 Baso % (Auto) 0.5 Neut # (Auto) 3.7 Lymph # (Auto) 1.4 [place] # (Auto) 0.6 Eos # (Auto) 0.1 Baso # (Auto) 0.0 WBC Differential . Differential Comment Auto diff final PT 10.8 INR 1.1 APTT 35.9 H Sodium 140 Potassium 4.1 Chloride 106 Carbon Dioxide 28.8 Anion Gap 5 BUN 26 H Creatinine 1.46 H Estimated GFR 47 L Random Glucose 107 H Calcium 8.8 03/20/18 03/21/18 03/21/18 23:34 02:30 02:30 WBC 7.1 RBC 3.08 L Hgb 9.0 L Hct 25.3 L MCV 82.2 D MCH 29.3 MCHC 35.6 RDW 17.7 H Plt Count 194 MPV 6.6 L Neut % (Auto) 62.0 Lymph % (Auto) 26.0 [place]lin % (Auto) 10.2 H Eos % (Auto) 1.5 Baso % (Auto) 0.3 Neut # (Auto) 4.4 Lymph # (Auto) 1.8 [place]lin # (Auto) 0.7 Eos # (Auto) 0.1 Baso # (Auto) 0.0 WBC Differential . Differential Comment Auto diff final PT INR APTT 39.9 H Sodium 139 Potassium 3.9 Chloride 105 Carbon Dioxide 26.0 Anion Gap 8 BUN 23 H Creatinine 1.36 H Estimated GFR 51 L Random Glucose 93 Calcium 8.5 03/21/18 02:30 WBC RBC Hgb Hct MCV MCH MCHC RDW Plt Count MPV Neut % (Auto) Lymph % (Auto) [place]lin % (Auto) Eos % (Auto) Baso % (Auto) Neut # (Auto) Lymph # (Auto) [place] # (Auto) Eos # (Auto) Baso # (Auto) WBC Differential Differential Comment PT INR APTT 38.9 H Sodium Potassium Chloride Carbon Dioxide Anion Gap BUN Creatinine Estimated GFR Random Glucose Calcium Caprini VTE Risk Assessment Caprini VTE Risk Assessment: Moderate/High Risk (score >= 2) Caprini Risk Assessment Model: Point Value = 1 Point Value = 2 Point Value = 3 Point Value = 5 Age 41-60 Minor surgery BMI > 25 kg/m2 Swollen legs Varicose veins or History of unexplained or recurrent spontaneous Oral contraceptives or hormone replacement Sepsis (< 1 month) Serious lung disease, including pneumonia (< 1 month) Abnormal pulmonary function Acute myocardial infarction Congestive heart failure (< 1 month) History of inflammatory bowel disease Medical patient at bed rest Age 61-74 Arthroscopic surgery Major open surgery (> 45 min) Laparoscopic surgery (> 45 min) Malignancy Confined to bed (> 72 hours) Immobilizing plaster cast Central venous access Age >= 75 History of VTE Family history of VTE Factor V Leiden Prothrombin [id number] Lupus anticoagulant Anticardiolipin antibodies Elevated serum homocysteine Heparin-induced thrombocytopenia Other congenital or acquired thrombophilia Stroke (< 1 month) Elective arthroplasty Hip, pelvis, or leg fracture Acute spinal cord injury (< 1 month) Prophylaxis Regimen: Total Risk Factor Score Risk Level Prophylaxis Regimen 0-1 Low Early ambulation 2 Moderate Order ONE of the following: *Sequential Compression Device (SCD) *Heparin 5000 units SQ BID 3-4 Higher Order ONE of the following medications: *Heparin 5000 units SQ TID *Enoxaparin/Lovenox 40 mg SQ daily (WT < 150 kg, CrCl > 30 mL/min) *Enoxaparin/Lovenox 30 mg SQ daily (WT < 150 kg, CrCl > 10-29 mL/min) *Enoxaparin/Lovenox 30 mg SQ BID (WT < 150 kg, CrCl > 30 mL/min) AND/OR *Sequential Compression Device (SCD) 5 or more Highest Order ONE of the following medications: *Heparin 5000 units SQ TID (Preferred with Epidurals) *Enoxaparin/Lovenox 40 mg SQ daily (WT < 150 kg, CrCl > 30 mL/min) *Enoxaparin/Lovenox 30 mg SQ daily (WT < 150 kg, CrCl > 10-29 mL/min) *Enoxaparin/Lovenox 30 mg SQ BID (WT < 150 kg, CrCl > 30 mL/min) AND *Sequential Compression Device (SCD) Assessment and Plan - Plan 77-year-old white male admitted for unstable angina, significant left main disease. Unstable angina Status post catheterization with findings showing significant left main disease and left dominant system CT surgery consultation pending Heparin drip per cardiology Hyperlipidemia Hypertension Continue home metoprolol and norvasc, switch pravastatin to Lipitor Prediabetes Monitor Accu-Cheks for now, if glucoses to climb, start sliding scale insulin Anxiety Continue home lorazepam Hypothyroidism Continue home Synthroid latanoprost and brimonidine heparin
[2018-03-21] MEDS: Insulin NovoLIN Regular Correctional Sugar Inj SQ SCH ×3 (12:10→21:41)
--- NOTE | 2018-03-21 16:56 | US ---
EXAM DATE: 03/21/2018 4:52 PM EST AGE/SEX: 77 years / Male INDICATIONS: Preop cardiac surgery. CLINICAL DATA: This is the patient's initial encounter. Patient reports that signs and symptoms have been present for 1 day and indicates a pain score of 0/10. MEDICAL/SURGICAL HISTORY: . Anxiety. Arotic stenosis. CKD. HLD. HTN. Hypothyroid. Neuropa thy. Prostate cancer. . Cardiac catheterization. COMPARISON: No prior exams available for comparison. TECHNIQUE: Venous ultrasound of both lower extremities was performed from the inguinal ligament to t he proximal calf. Real-time, color Doppler and spectral tracing, compression and augmentation techni ques were used. FINDINGS: Right Leg: Normal compression of the deep venous system from the inguinal region to the proximal mary f. No echogenic clot is seen. Normal response of the venous system to augmentation and respiration. Left Leg: Normal compression of the deep venous system from the inguinal region to the proximal calf . No echogenic clot is seen. Normal response of the venous system to augmentation and respiration. Other: None. CONCLUSION: No evidence of lower extremity DVT on the right or left. Electronically signed by: Epi Moreno MD 03/21/2018 4:55 PM EST
--- NOTE | 2018-03-21 16:58 | US ---
EXAM DATE: 03/21/2018 4:49 PM EST AGE/SEX: 77 years / Male INDICATIONS: Preop cardiac surgery. CLINICAL DATA: This is the patient's initial encounter. Patient reports that signs and symptoms have been present for 1 day and indicates a pain score of 0/10. MEDICAL/SURGICAL HISTORY: . Anxiety. Aortic stenosis. CKD. HLD. HTN. Hypothyroid. Neuropat hy. Prostate cancer. . Cardiac catheterization. COMPARISON: No prior exams available for comparison. VELOCITY PARAMETERS: ICA/CCA Ratio: Right 0.94 , Left 1.0 ICA: Right 112 cm/sec, Left 114 cm/sec CCA: Right 118 cm/sec, Left 109 cm/sec ECA: Right 116 cm/sec, Left 180 cm/sec Vertebral: Right 61 cm/sec antegrade, Left 74 cm/sec antegrade FINDINGS: Right Carotid: Mild arteriosclerotic plaque is visualized.The waveforms are within normal limits. Left Carotid: Mild arteriosclerotic plaque is visualized. The waveforms are within normal limits. Other: None. CONCLUSION: 1. There is some mild to moderate atherosclerotic plaquing at the carotid bifurcations. 2. No hemodynamically significant stenosis is demonstrated. Electronically signed by: Alden Ballard MD 03/21/2018 4:56 PM EST
--- NOTE | 2018-03-21 17:00 | US ---
EXAM DATE: 03/21/2018 4:53 PM EST AGE/SEX: 77 years / Male INDICATIONS: Preop cardiac surgery. CLINICAL DATA: This is the patient's initial encounter. Patient reports that signs and symptoms have been present for 1 day and indicates a pain score of 0/10. MEDICAL/SURGICAL HISTORY: . Anxiety. Aortic stenosis. CKD. HLD. HTN. Hypothyroid. Neuropat hy. Prostate cancer. . Cardiac catheterization. COMPARISON: No prior exams available for comparison. MEASUREMENTS: RIGHT THIGH: Proximal:__4 mm Mid:__ 3 mm Distal:__4 mm LEFT THIGH: Proximal:__5 mm Mid:__3 mm Distal:__4 mm RIGHT CALF: Proximal:__2 mm Mid:__1 mm Distal:__2 mm LEFT CALF: Proximal:__2 mm Mid:__3 mm Distal:__2 mm FINDINGS: The venous system of the lower extremities are patent by color Doppler imaging. Measurements of the leg veins (in mm) are listed above. CONCLUSION: 1. Venous mapping as above. Electronically signed by: Alden Ballard MD 03/21/2018 4:58 PM EST
--- NOTE | 2018-03-21 17:30 | XR ---
EXAM DATE: 03/21/2018 5:26 PM EST AGE/SEX: 77 years / Male INDICATIONS: . Pre op for cardiac surgery. CLINICAL DATA: This is the patient's initial encounter. Patient reports that signs and symptoms have been present for 1 day and indicates a pain score of 0/10. MEDICAL/SURGICAL HISTORY: Carcinoma, prostatic. Hypertension. None. COMPARISON: No prior exams available for comparison. FINDINGS: PA and lateral views of the chest demonstrate the lungs to be symmetrically aerated without evidence of mass, infiltrate or effusion. Mild elevation of the right hemidiaphragm. The cardiomediastinal con tours are unremarkable. Osseous structures are intact. CONCLUSION: No acute intrathoracic disease. Electronically signed by: Alden Ballard MD 03/21/2018 5:29 PM EST
[2018-03-21] MEDS: Latanoprost 0.005% Opth Drops 2.5 ML Bottle EACH EYE SCH (18:34)
[2018-03-21] MEDS: Heparin Drip 25,000 UNIT/250 ML BAG IV.CONT PRN (18:40)
--- NOTE | 2018-03-21 18:43 | P.CON ---
History of Present Illness Service: Cardiothoracic surgery Consult date: 03/21/18 Requesting Physician: Harry Hernandez Reason for Consult: Coronary artery disease Primary Care Provider: Nixon Mata MD History of Present Illness: Very pleasant 77-year-old gentleman with no prior cardiac history presenting with chest pain with minimal exertion and at rest and associated shortness of breath. Patient was seen and evaluated by Dr. Hernandez and underwent a coronary angiogram which reveals left main stenosis with a nondominant right system. I am now be consulted for surgical vasculature and therapy. At the present time he remains pain-free, hemodynamically stable with no evidence of ongoing ischemia. Review of Systems All other systems reviewed negative except as stated in HPI [facility] - History History Provided By: Patient - Medical History Medical History: Medical History (Last Reviewed 03/21/18 @ 10:00 by Serg Galicia MD) Anxiety Aortic stenosis CKD (chronic kidney disease), stage II HLD (hyperlipidemia) HTN (hypertension) Hypothyroid Neuropathy Prostate cancer Shortness of breath - Family History Family History: Family History (Last Updated 03/21/18 @ 10:01 by Serg Galicia MD) Other Diabetes - Tobacco History Smoking Status: Former smoker - Alcohol History How Often Do You Have a Drink Containing Alcohol: 2 to 4 times a month Medications and Allergies Active Medications: Active Medications Amlodipine Besylate (Norvasc) 5 mg PO DAILY [facility] Last Admin: 03/21/18 09:20 Dose: 5 mg Aspirin (Ecotrin) 81 mg PO DAILY [facility] Last Admin: 03/21/18 09:20 Dose: 81 mg Atorvastatin Calcium (Lipitor) 40 mg PO HS [facility] Brimonidine Tartrate (Alphagan 0.2% Opth Drops) 1 drops EACH EYE TID [facility] Last Admin: 03/21/18 18:34 Dose: 1 drops Dextrose (D50w Vial) 50 ml IV.PUSH UNSCH PRN PRN Reason: PER HYPOGLYCEMIA PROTOCOL Glucagon (Glucagon Inj) 1 mg OTHER PRN PRN PRN Reason: for Hypoglycemia Protocol Sodium Chloride (Ns Inj) 1,000 mls @ 30 mls/hr IV.CONT .Q24H [facility] Last Infusion: 03/21/18 11:13 Dose: Infused Heparin Sodium/Dextrose (Heparin/D5w 25,000 U/250 Ml) 25,000 unit in 250 mls @ 0 mls/hr IV.CONT TITRATE PRN; Protocol PRN Reason: Per Protocol Last Titration: 03/21/18 02:55 Dose: 1,100 units/hr, 11 mls/hr Insulin Human Regular (Novolin R Correctional Sugar Inj) 0 units SQ ACHS [facility]; Protocol Last Admin: 03/21/18 18:35 Dose: Not Given Latanoprost (Xalatan 0.005% Opth Drops) 1 drop EACH EYE QPM [facility] Last Admin: 03/21/18 18:34 Dose: 1 drop Levothyroxine Sodium (Synthroid) 150 mcg PO DAILY@0600 [facility] Last Admin: 03/21/18 05:04 Dose: 150 mcg Lorazepam (Ativan) 0.5 mg PO BID PRN PRN Reason: Anxiety Last Admin: 03/20/18 22:26 Dose: 0.5 mg Metoprolol Tartrate (Lopressor) 50 mg PO BID [facility] Last Admin: 03/21/18 09:20 Dose: 50 mg Polymyxin/Trimethoprim Sulfate (Polytrim Opth Drops) 1 drop EACH EYE Q3H [facility] Last Admin: 03/21/18 18:34 Dose: 1 drop Sodium Chloride (Ns Flush) 2 ml IV.FLUSH BID [facility] Last Admin: 03/21/18 09:20 Dose: 2 ml Sodium Chloride (Ns Flush) 2 ml IV.FLUSH PRN PRN PRN Reason: FLUSH AFTER USING IV ACCESS Allergies Allergy/AdvReac Type Severity Reaction Status Date / Time No Known Allergies Allergy Verified 03/20/18 12:49 Home Medications Medication Instructions Recorded Confirmed Type alendronate 70 mg PO QWEEK 03/20/18 03/20/18 History amlodipine 5 mg PO DAILY 03/20/18 03/20/18 History brimonidine 1 drp OPHTHALMIC (EYE) TID 03/20/18 03/20/18 History glipizide 5 mg PO DAILY 03/20/18 03/20/18 History latanoprost 1 drp OPHTHALMIC (EYE) QPM 03/20/18 03/20/18 History levothyroxine 150 mcg PO DAILY 03/20/18 03/20/18 History lorazepam 1 tab PO BID PRN 03/20/18 03/20/18 History lovastatin 40 mg PO DAILY 03/20/18 03/20/18 History metformin 500 mg PO BID 03/20/18 03/20/18 History metoprolol tartrate 50 mg PO BID 03/20/18 03/20/18 History omega-3 fatty acids-fish oil [Fish 1 cap PO DAILY 03/20/18 03/20/18 History Oil] polymyxin B sulf-trimethoprim 1 drp OPHTHALMIC (EYE) Q3H 03/20/18 03/20/18 History Physical Exam Vital signs: Vital Signs 03/20/18 20:00 03/20/18 21:00 03/20/18 22:00 Temperature 98.1 F Pulse Rate 91 H 91 H 89 Respiratory Rate 20 Blood Pressure 168/86 H Pulse Oximetry 95 03/20/18 23:00 03/21/18 00:00 03/21/18 02:00 Temperature 98.0 F Pulse Rate 81 79 78 Respiratory Rate 20 Blood Pressure 143/79 H Pulse Oximetry 95 03/21/18 04:00 03/21/18 06:00 03/21/18 07:00 Temperature 98.2 F Pulse Rate 85 83 89 Respiratory Rate 20 Blood Pressure 145/76 H Pulse Oximetry 96 03/21/18 08:00 03/21/18 08:36 03/21/18 09:00 Temperature 98.3 F Pulse Rate 84 87 92 H Respiratory Rate 18 Blood Pressure 157/82 H Pulse Oximetry 95 03/21/18 10:00 03/21/18 11:00 03/21/18 12:00 Temperature 98.2 F Pulse Rate 70 72 76 Respiratory Rate 18 Blood Pressure 144/63 H Pulse Oximetry 94 L 03/21/18 13:00 03/21/18 14:00 03/21/18 14:46 Temperature 97.9 F Pulse Rate 76 84 78 Respiratory Rate 18 Blood Pressure 157/73 H Pulse Oximetry 96 03/21/18 15:00 03/21/18 16:00 03/21/18 17:00 Temperature Pulse Rate 80 80 88 Respiratory Rate Blood Pressure Pulse Oximetry 03/21/18 18:00 Temperature Pulse Rate 86 Respiratory Rate Blood Pressure Pulse Oximetry Intake & Output 03/20/18 03/21/18 03/21/18 18:59 06:59 18:59 Intake Total 740 / 740 240 / 240 500 / 500 Output Total 150 / 150 400 / 400 Balance 590 / 590 -160 / -160 500 / 500 Weight 90.5 kg 90.7 kg Intake: IV 500 / 500 500 / 500 NS Inj 1,000 ML @ 30 mls/hr IV. 500 / 500 500 / 500 CONT .Q24H [facility] Rx#:[id number] Oral 240 / 240 240 / 240 Output: Urine 150 / 150 400 / 400 Other: Date of Last Bowel Movement 03/20/18 # Bowel Movements 0 Weight On Admission 90.5 kg - Constitutional no acute distress - Routine HEENT Exam Head: Present: normocephalic, atraumatic Eye: Present: EOMI, PERRL ENT: Present: mucous membranes moist - Routine Neck Exam Present: supple, full ROM. Absent: JVD, carotid bruit, lymphadenopathy - Routine Respiratory Exam Present: CTA bilaterally - Routine Cardiovascular Exam Present: RRR, S1, S2. Absent: murmur, gallop, rubs - Routine Abdominal Exam Present: soft, normoactive bowel sounds. Absent: tenderness, distended, rebound , guarding - Routine Extremities Exam Present: full ROM, pulses intact, normal capillary refill. Absent: cyanosis, clubbing, edema - Routine Skin Exam Present: intact - Routine Neurological Exam Present: alert, oriented X3, CN II-XII intact, normal reflexes. 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 Therapeutic options available including CABG was offered. I agree with Dr. Hernandez that he will maximally benefit from bypass to his LAD and OM distributions. The risks, complications including but not limited to bleeding, infection, stroke, myocardial injury and , and benefits of the surgical procedure were discussed in details and all questions answered. He understands the provided information and agrees to proceed with the planned operation. We will plan on proceeding with the surgical procedure as describe above on Sunday as a second case. In the meantime, we will obtain carotid duplex imaging and lower extremity vein mapping. Thank you for allowing me to participate in the care of this patient.
[2018-03-21 20:11] LABS: Bilirubin,Urine Negative (Negative); Clarity,Urine Clear (Clear); Color,Urine Straw (Yellw/Straw); Glucose,Urine (UA) Negative (Negative); Leukocyte Esterase,Urine Negative (Negative); Mucus,Urine Few /lpf (Occasional); Nitrite,Urine Negative (Negative); Specific Gravity,Urine 1.008 (1.002-1.035); Squamous Epithelial Cell,Urine <1 /hpf (0-5)
[2018-03-21] MEDS ORDERED: Insulin Regular (For Infusion) 100 UNIT in Sodium Chlor 0.9% Inj 99 ML IV.CONT PRN (22:21)
[2018-03-21] MEDS ORDERED: Sodium Chloride 0.9% Irr Bot 500 ML, ceFAZolin Inj 500 MG IRRIGATION SCH ×2 (22:30)
[2018-03-21] MEDS ORDERED: Sodium Chlor 0.9% Inj 77.5 ML, Papaverine Inj 60 MG, Nitroglycerin Inj 100 MCG, dilTIAZ... IRRIGATION SCH ×3 (22:30)
[2018-03-21] MEDS ORDERED: Chlorhexidine 4% Topical 120 APPLIC/120 ML Bottle TOPICAL SCH (22:30)
--- NOTE | 2018-03-21 22:38 | P.PNCA ---
Subjective Interval history: No complaints No chest pain/burning overnight Medications and Allergies Active Medications: Active Medications Amlodipine Besylate (Norvasc) 5 mg PO DAILY [facility] Last Admin: 03/21/18 09:20 Dose: 5 mg Aspirin (Ecotrin) 81 mg PO DAILY [facility] Last Admin: 03/21/18 09:20 Dose: 81 mg Atorvastatin Calcium (Lipitor) 40 mg PO HS [facility] Last Admin: 03/21/18 21:17 Dose: 40 mg Brimonidine Tartrate (Alphagan 0.2% Opth Drops) 1 drops EACH EYE TID [facility] Last Admin: 03/21/18 18:34 Dose: 1 drops Chlorhexidine Gluconate (Hibiclens 4% Topical) 1 applicatio TOPICAL MORTUARY OPERATIONS MANAGER [facility] Stop: 03/27/18 22:21 Sodium Chloride 77.5 ml/Papaverine HCl 60 mg/Nitroglycerin 100 mcg/Diltiazem HCl 100 mg 0 ml IRRIGATION MORTUARY OPERATIONS MANAGER [facility] Stop: 03/27/18 22:21 Sodium Chloride 500 ml/ (Cefazolin Sodium 500 mg) 0 ml IRRIGATION MORTUARY OPERATIONS MANAGER [facility] Stop: 03/27/18 22:22 Dextrose (D50w Vial) 50 ml IV.PUSH UNSCH PRN PRN Reason: PER HYPOGLYCEMIA PROTOCOL Dextrose (D50w Vial) 50 ml IV.PUSH UNSCH PRN PRN Reason: PER HYPOGLYCEMIA PROTOCOL Glucagon (Glucagon Inj) 1 mg OTHER PRN PRN PRN Reason: for Hypoglycemia Protocol Sodium Chloride (Ns Inj) 1,000 mls @ 30 mls/hr IV.CONT .Q24H [facility] Last Infusion: 03/21/18 11:13 Dose: Infused Heparin Sodium/Dextrose (Heparin/D5w 25,000 U/250 Ml) 25,000 unit in 250 mls @ 0 mls/hr IV.CONT TITRATE PRN; Protocol PRN Reason: Per Protocol Last Admin: 03/21/18 18:40 Dose: 1,100 units/hr, 11 mls/hr Insulin Human Regular 100 unit (/ Sodium Chloride) 100 mls @ 3 mls/hr IV.CONT TITRATE PRN; Protocol PRN Reason: See Protocol Cefazolin Sodium/Dextrose (Ancef 2 Gm Premix Inj) 2 gm in 50 mls @ 100 mls/hr IV.SIG MORTUARY OPERATIONS MANAGER [facility] Stop: 03/24/18 22:59 Insulin Human Regular (Novolin R Correctional Sugar Inj) 0 units SQ ACHS [facility]; Protocol Last Admin: 03/21/18 21:41 Dose: Not Given Latanoprost (Xalatan 0.005% Opth Drops) 1 drop EACH EYE QPM [facility] Last Admin: 03/21/18 18:34 Dose: 1 drop Levothyroxine Sodium (Synthroid) 150 mcg PO DAILY@0600 [facility] Last Admin: 03/21/18 05:04 Dose: 150 mcg Lorazepam (Ativan) 0.5 mg PO BID PRN PRN Reason: Anxiety Last Admin: 03/20/18 22:26 Dose: 0.5 mg Metoprolol Tartrate (Lopressor) 50 mg PO BID [facility] Last Admin: 03/21/18 21:17 Dose: 50 mg Polymyxin/Trimethoprim Sulfate (Polytrim Opth Drops) 1 drop EACH EYE Q3H [facility] Last Admin: 03/21/18 18:34 Dose: 1 drop Sodium Chloride (Ns Flush) 2 ml IV.FLUSH BID [facility] Last Admin: 03/21/18 21:41 Dose: Not Given Sodium Chloride (Ns Flush) 2 ml IV.FLUSH PRN PRN PRN Reason: FLUSH AFTER USING IV ACCESS Sodium Chloride (Ns Flush) 2 ml IV.FLUSH BID [facility] Sodium Chloride (Ns Flush) 2 ml IV.FLUSH PRN PRN PRN Reason: FLUSH AFTER USING IV ACCESS Allergies Allergy/AdvReac Type Severity Reaction Status Date / Time No Known Allergies Allergy Verified 03/20/18 12:49 Home Medications Medication Instructions Recorded Confirmed Type alendronate 70 mg PO QWEEK 03/20/18 03/20/18 History amlodipine 5 mg PO DAILY 03/20/18 03/20/18 History brimonidine 1 drp OPHTHALMIC (EYE) TID 03/20/18 03/20/18 History glipizide 5 mg PO DAILY 03/20/18 03/20/18 History latanoprost 1 drp OPHTHALMIC (EYE) QPM 03/20/18 03/20/18 History levothyroxine 150 mcg PO DAILY 03/20/18 03/20/18 History lorazepam 1 tab PO BID PRN 03/20/18 03/20/18 History lovastatin 40 mg PO DAILY 03/20/18 03/20/18 History metformin 500 mg PO BID 03/20/18 03/20/18 History metoprolol tartrate 50 mg PO BID 03/20/18 03/20/18 History omega-3 fatty acids-fish oil [Fish 1 cap PO DAILY 03/20/18 03/20/18 History Oil] polymyxin B sulf-trimethoprim 1 drp OPHTHALMIC (EYE) Q3H 03/20/18 03/20/18 History Physical Exam Vital signs: Vital Signs 03/20/18 23:00 03/21/18 00:00 03/21/18 02:00 Temperature 98.0 F Pulse Rate 81 79 78 Respiratory Rate 20 Blood Pressure 143/79 H Pulse Oximetry 95 03/21/18 04:00 03/21/18 06:00 03/21/18 07:00 Temperature 98.2 F Pulse Rate 85 83 89 Respiratory Rate 20 Blood Pressure 145/76 H Pulse Oximetry 96 03/21/18 08:00 03/21/18 08:36 03/21/18 09:00 Temperature 98.3 F Pulse Rate 84 87 92 H Respiratory Rate 18 Blood Pressure 157/82 H Pulse Oximetry 95 03/21/18 10:00 03/21/18 11:00 03/21/18 12:00 Temperature 98.2 F Pulse Rate 70 72 76 Respiratory Rate 18 Blood Pressure 144/63 H Pulse Oximetry 94 L 03/21/18 13:00 03/21/18 14:00 03/21/18 14:46 Temperature 97.9 F Pulse Rate 76 84 78 Respiratory Rate 18 Blood Pressure 157/73 H Pulse Oximetry 96 03/21/18 15:00 03/21/18 16:00 03/21/18 17:00 Temperature Pulse Rate 80 80 88 Respiratory Rate Blood Pressure Pulse Oximetry 03/21/18 18:00 Temperature Pulse Rate 86 Respiratory Rate Blood Pressure Pulse Oximetry Intake & Output 03/21/18 03/21/18 03/22/18 06:59 18:59 06:59 Intake Total 240 / 240 750 / 750 Output Total 400 / 400 Balance -160 / -160 750 / 750 Weight 90.7 kg Intake: IV 750 / 750 Heparin/D5W 25,000 U/250 mL 25, 250 / 250 000 unit In 250 ml @ Per Protocol IV.CONT TITRATE PRN Rx #:[id number] NS Inj 1,000 ML @ 30 mls/hr IV. 500 / 500 CONT .Q24H [facility] Rx#:[id number] Oral 240 / 240 Output: Urine 400 / 400 Other: Date of Last Bowel Movement 03/20/18 # Bowel Movements 0 Narrative: VS: afebrile GENERAL: Well-nourished elderly white male, no acute distress SKIN: Warm and dry. EYES: No scleral icterus. No injection or drainage. ENT: No nasal bleeding or discharge. Mucous membranes pink and moist. CARDIOVASCULAR: Regular rate and rhythm. no murmurs RESPIRATORY: No accessory muscle use. Clear to auscultation. Breath sounds equal bilaterally. GASTROINTESTINAL: Abdomen soft, non-tender, nondistended. Extremities: No clubbing, cyanosis, or edema. No obvious deformities. MUSCULOSKELETAL:adequate muscle bulk and tone for age and habitus NEUROLOGICAL: Awake and alert. No obvious cranial nerve deficits. No facial droop nor slurred speech noted. PSYCHIATRIC: Appropriate mood and affect; insight and judgment normal. Results 03/21/18 02:30 03/21/18 02:30 Coagulation 03/20/18 03/20/18 03/21/18 Range/Units 12:30 23:34 02:30 PT 10.8 (9.8-11.6) sec APTT 35.9 H 39.9 H 38.9 H (23.4-31.7) sec 03/21/18 03/21/18 Range/Units 08:55 20:23 PT (9.8-11.6) sec APTT 41.7 H 42.7 H (23.4-31.7) sec CBC 03/20/18 03/21/18 Range/Units 12:30 02:30 WBC 5.8 7.1 (4.0-11.0) th/mm3 RBC 3.24 L 3.08 L (4.50-5.90) mil/mm3 Hgb 9.2 L 9.0 L (13.0-17.0) gm/dL Hct 27.8 L 25.3 L (39.0-51.0) % Plt Count 211 194 (150-450) th/mm3 Neut # (Auto) 3.7 4.4 (1.8-7.7) th/mm3 Lymph # (Auto) 1.4 1.8 (1.0-4.8) th/mm3 [place] # (Auto) 0.6 0.7 (0.0-0.9) th/mm3 Eos # (Auto) 0.1 0.1 (0.0-0.4) th/mm3 Baso # (Auto) 0.0 0.0 (0.0-0.2) th/mm3 Comprehensive Metabolic Panel 03/20/18 03/21/18 Range/Units 12:30 02:30 Sodium 140 139 (136-145) meq/L Potassium 4.1 3.9 (3.5-5.1) meq/L Chloride 106 105 (98-107) meq/L Carbon Dioxide 28.8 26.0 (21.0-32.0) meq/L BUN 26 H 23 H (7-18) mg/dL Creatinine 1.46 H 1.36 H (0.60-1.30) mg/dL Calcium 8.8 8.5 (8.5-10.1) mg/dL Intake and Output 03/21/18 03/21/18 03/21/18 06:59 14:59 22:59 Intake Total 240 / 240 500 / 500 250 / 250 Output Total 400 / 400 Balance -160 / -160 500 / 500 250 / 250 Intake: IV 500 / 500 250 / 250 Heparin/D5W 25,000 U/250 mL 25, 250 / 250 000 unit In 250 ml @ Per Protocol IV.CONT TITRATE PRN Rx #:[id number] NS Inj 1,000 ML @ 30 mls/hr IV. 500 / 500 CONT .Q24H [facility] Rx#:[id number] Oral 240 / 240 Output: Urine 400 / 400 Other: Date of Last Bowel Movement 03/20/18 03/20/18 # Bowel Movements 0 Weight 90.7 kg - Imaging and Cardiology Imaging: Impressions Carotid Doppler Study 03/21/18 15:05 CONCLUSION: 1. There is some mild to moderate atherosclerotic plaquing at the carotid bifurcations. 2. No hemodynamically significant stenosis is demonstrated. Lower Extremity Ultrasound 03/21/18 15:05 CONCLUSION: 1. Venous mapping as above. Venous Doppler Study 03/21/18 15:05 CONCLUSION: No evidence of lower extremity DVT on the right or left. Chest X-Ray 03/21/18 15:09 CONCLUSION: No acute intrathoracic disease. 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 Mary Jara drip 2) Echo (12/2017) EF 55-60%, stage 1 DD, mild MR, trace AR
[2018-03-21] MEDS ORDERED: ceFAZolin Inj 2,000 MG in Sodium Chlor 0.9% Inj 80 ML IV.SIG SCH (23:00)
[2018-03-21] MEDS ORDERED: ceFAZolin 2 GM Premix Inj 2 GM/50 ML PIGGYBACK IV.SIG SCH (23:00)
[2018-03-22] MEDS ORDERED: Chlorhexidine Gluconate 2% 1 Pack (2 Cloths) TOPICAL ONE (02:11)
[2018-03-22] MEDS ORDERED: Sodium Chlor 0.9% Inj 500 ML IV.SIG SCH (03:00)
[2018-03-22] MEDS: LORazepam 0.5 MG Tablet PO PRN (03:36)
[2018-03-22 05:06] LABS: Hematocrit 26.3 % (39.0-51.0); Hemoglobin 8.9 gm/dL (13.0-17.0); Mean Corpuscular HGB Conc 33.9 % (32.0-36.0); Mean Corpuscular Hemoglobin 28.4 pg (27.0-34.0); Mean Corpuscular Volume 83.8 fL (80.0-100.0); Platelet Count 199 th/mm3 (150-450); Red Blood Count 3.14 mil/mm3 (4.50-5.90); Red Cell Distribution Width 17.8 % (11.6-17.2); White Blood Count 6.8 th/mm3 (4.0-11.0)
[2018-03-22] MEDS: Levothyroxine 150 MCG Tablet PO SCH (05:39)
[2018-03-22] MEDS: Polymyxin/Trimethop Opth Drops 10 ML Bottle EACH EYE SCH ×8 (08:11→22:37)
[2018-03-22] MEDS: Sod Chloride 0.9% Inj 1,000 ML IV.CONT SCH ×2 (08:13→20:24)
[2018-03-22] MEDS: Insulin NovoLIN Regular Correctional Sugar Inj SQ SCH ×2 (08:14→12:09)
[2018-03-22] MEDS: Metoprolol Tartrate 50 MG Tablet PO SCH (08:35)
[2018-03-22] MEDS: Brimonidine 0.2% Opth Drops 5 ML Bottle EACH EYE SCH ×2 (08:37→20:24)
[2018-03-22] MEDS: amLODIPine 5 MG Tablet PO SCH (08:38)
[2018-03-22] MEDS: Latanoprost 0.005% Opth Drops 2.5 ML Bottle EACH EYE SCH ×2 (08:41→20:44)
--- NOTE | 2018-03-22 12:26 | P.PNCA ---
Subjective Interval history: No events overnight Anxious about surgery Medications and Allergies Active Medications: Active Medications Amlodipine Besylate (Norvasc) 5 mg PO DAILY [facility] Last Admin: 03/22/18 08:38 Dose: Not Given Aspirin (Ecotrin) 81 mg PO DAILY [facility] Last Admin: 03/22/18 08:35 Dose: 81 mg Atorvastatin Calcium (Lipitor) 40 mg PO HS [facility] Last Admin: 03/21/18 21:17 Dose: 40 mg Brimonidine Tartrate (Alphagan 0.2% Opth Drops) 1 drops EACH EYE TID [facility] Last Admin: 03/22/18 08:37 Dose: Not Given Chlorhexidine Gluconate (Hibiclens 4% Topical) 1 applicatio TOPICAL SPECIAL EDUCATION ASSISTANT [facility] Stop: 03/27/18 22:21 Sodium Chloride 77.5 ml/Papaverine HCl 60 mg/Nitroglycerin 100 mcg/Diltiazem HCl 100 mg 0 ml IRRIGATION SPECIAL EDUCATION ASSISTANT [facility] Stop: 03/27/18 22:21 Sodium Chloride 500 ml/ (Cefazolin Sodium 500 mg) 0 ml IRRIGATION SPECIAL EDUCATION ASSISTANT [facility] Stop: 03/27/18 22:22 Dextrose (D50w Vial) 50 ml IV.PUSH UNSCH PRN PRN Reason: PER HYPOGLYCEMIA PROTOCOL Dextrose (D50w Vial) 50 ml IV.PUSH UNSCH PRN PRN Reason: PER HYPOGLYCEMIA PROTOCOL Glucagon (Glucagon Inj) 1 mg OTHER PRN PRN PRN Reason: for Hypoglycemia Protocol Sodium Chloride (Ns Inj) 1,000 mls @ 30 mls/hr IV.CONT .Q24H [facility] Last Admin: 03/22/18 08:13 Dose: Not Given Heparin Sodium/Dextrose (Heparin/D5w 25,000 U/250 Ml) 25,000 unit in 250 mls @ 0 mls/hr IV.CONT TITRATE PRN; Protocol PRN Reason: Per Protocol Last Admin: 03/21/18 18:40 Dose: 1,100 units/hr, 11 mls/hr Insulin Human Regular 100 unit (/ Sodium Chloride) 100 mls @ 3 mls/hr IV.CONT TITRATE PRN; Protocol PRN Reason: See Protocol Cefazolin Sodium/Dextrose (Ancef 2 Gm Premix Inj) 2 gm in 50 mls @ 100 mls/hr IV.SIG SPECIAL EDUCATION ASSISTANT [facility] Stop: 03/24/18 22:59 Lactated Ringer's (Lr 1000 Ml Inj) 1,000 mls @ 30 mls/hr IV.SIG .Q24H [facility] Stop: 03/23/18 02:14 Last Admin: 03/22/18 08:14 Dose: Not Given Sodium Chloride (Ns Inj) 500 mls @ 30 mls/hr IV.SIG .Q10H [facility] Last Admin: 03/22/18 08:14 Dose: Not Given Insulin Human Regular (Novolin R Correctional Sugar Inj) 0 units SQ ACHS [facility]; Protocol Last Admin: 03/22/18 12:09 Dose: Not Given Latanoprost (Xalatan 0.005% Opth Drops) 1 drop EACH EYE QPM [facility] Last Admin: 03/22/18 08:41 Dose: Not Given Levothyroxine Sodium (Synthroid) 150 mcg PO DAILY@0600 [facility] Last Admin: 03/22/18 05:39 Dose: 150 mcg Lorazepam (Ativan) 0.5 mg PO BID PRN PRN Reason: Anxiety Last Admin: 03/22/18 03:36 Dose: 0.5 mg Metoprolol Tartrate (Lopressor) 50 mg PO BID [facility] Last Admin: 03/22/18 08:35 Dose: 50 mg Polymyxin/Trimethoprim Sulfate (Polytrim Opth Drops) 1 drop EACH EYE Q3H [facility] Last Admin: 03/22/18 12:24 Dose: Not Given Sodium Chloride (Ns Flush) 2 ml IV.FLUSH BID [facility] Last Admin: 03/22/18 08:38 Dose: 2 ml Sodium Chloride (Ns Flush) 2 ml IV.FLUSH PRN PRN PRN Reason: FLUSH AFTER USING IV ACCESS Allergies Allergy/AdvReac Type Severity Reaction Status Date / Time No Known Allergies Allergy Verified 03/20/18 12:49 Home Medications Medication Instructions Recorded Confirmed Type alendronate 70 mg PO QWEEK 03/20/18 03/20/18 History amlodipine 5 mg PO DAILY 03/20/18 03/20/18 History brimonidine 1 drp OPHTHALMIC (EYE) TID 03/20/18 03/20/18 History glipizide 5 mg PO DAILY 03/20/18 03/20/18 History latanoprost 1 drp OPHTHALMIC (EYE) QPM 03/20/18 03/20/18 History levothyroxine 150 mcg PO DAILY 03/20/18 03/20/18 History lorazepam 1 tab PO BID PRN 03/20/18 03/20/18 History lovastatin 40 mg PO DAILY 03/20/18 03/20/18 History metformin 500 mg PO BID 03/20/18 03/20/18 History metoprolol tartrate 50 mg PO BID 03/20/18 03/20/18 History omega-3 fatty acids-fish oil [Fish 1 cap PO DAILY 03/20/18 03/20/18 History Oil] polymyxin B sulf-trimethoprim 1 drp OPHTHALMIC (EYE) Q3H 03/20/18 03/20/18 History Physical Exam Vital signs: Vital Signs 03/21/18 13:00 03/21/18 14:00 03/21/18 14:46 Temperature 97.9 F Pulse Rate 76 84 78 Respiratory Rate 18 Blood Pressure 157/73 H Pulse Oximetry 96 03/21/18 15:00 03/21/18 16:00 03/21/18 17:00 Temperature Pulse Rate 80 80 88 Respiratory Rate Blood Pressure Pulse Oximetry 03/21/18 18:00 03/21/18 19:00 03/21/18 20:00 Temperature Pulse Rate 86 89 86 Respiratory Rate Blood Pressure Pulse Oximetry 03/21/18 21:00 03/21/18 22:00 03/21/18 23:00 Temperature Pulse Rate 88 86 80 Respiratory Rate Blood Pressure Pulse Oximetry 03/21/18 23:05 03/22/18 00:00 03/22/18 01:00 Temperature 98 F Pulse Rate 78 94 H 64 Respiratory Rate 18 Blood Pressure 127/62 Pulse Oximetry 96 03/22/18 02:00 03/22/18 03:00 03/22/18 04:00 Temperature Pulse Rate 72 52 L 87 Respiratory Rate Blood Pressure Pulse Oximetry 03/22/18 05:00 03/22/18 05:47 03/22/18 07:00 Temperature 98 F Pulse Rate 74 74 87 Respiratory Rate 20 Blood Pressure 170/86 H Pulse Oximetry 95 03/22/18 08:00 03/22/18 09:00 03/22/18 10:00 Temperature Pulse Rate 87 84 75 Respiratory Rate Blood Pressure Pulse Oximetry 03/22/18 11:00 Temperature 97.9 F Pulse Rate 69 Respiratory Rate Blood Pressure 128/64 Pulse Oximetry Intake & Output 03/21/18 03/22/18 03/22/18 18:59 06:59 18:59 Intake Total 750 / 750 240 / 240 Output Total 300 / 300 Balance 750 / 750 -60 / -60 Weight 89 kg Intake: IV 750 / 750 Heparin/D5W 25,000 U/250 mL 25, 250 / 250 000 unit In 250 ml @ Per Protocol IV.CONT TITRATE PRN Rx #:[id number] NS Inj 1,000 ML @ 30 mls/hr IV. 500 / 500 CONT .Q24H [facility] Rx#:[id number] Oral 240 / 240 Output: Urine 300 / 300 Other: # Voids 3 Date of Last Bowel Movement 03/20/18 03/20/18 03/20/18 Narrative: VS: afebrile GENERAL: Well-nourished elderly white male, no acute distress SKIN: Warm and dry. EYES: No scleral icterus. No injection or drainage. ENT: No nasal bleeding or discharge. Mucous membranes pink and moist. CARDIOVASCULAR: Regular rate and rhythm. no murmurs RESPIRATORY: No accessory muscle use. Clear to auscultation. Breath sounds equal bilaterally. GASTROINTESTINAL: Abdomen soft, non-tender, nondistended. Extremities: No clubbing, cyanosis, or edema. No obvious deformities. MUSCULOSKELETAL:adequate muscle bulk and tone for age and habitus NEUROLOGICAL: Awake and alert. No obvious cranial nerve deficits. No facial droop nor slurred speech noted. PSYCHIATRIC: Appropriate mood and affect; insight and judgment normal. Results 03/22/18 04:16 03/21/18 02:30 Coagulation 03/20/18 03/20/18 03/21/18 Range/Units 12:30 23:34 02:30 PT 10.8 (9.8-11.6) sec APTT 35.9 H 39.9 H 38.9 H (23.4-31.7) sec 03/21/18 03/21/18 Range/Units 08:55 20:23 PT (9.8-11.6) sec APTT 41.7 H 42.7 H (23.4-31.7) sec CBC 03/20/18 03/21/18 03/22/18 Range/Units 12:30 02:30 04:16 WBC 5.8 7.1 6.8 (4.0-11.0) th/mm3 RBC 3.24 L 3.08 L 3.14 L (4.50-5.90) mil/mm3 Hgb 9.2 L 9.0 L 8.9 L (13.0-17.0) gm/dL Hct 27.8 L 25.3 L 26.3 L (39.0-51.0) % Plt Count 211 194 199 (150-450) th/mm3 Neut # (Auto) 3.7 4.4 (1.8-7.7) th/mm3 Lymph # (Auto) 1.4 1.8 (1.0-4.8) th/mm3 [place] # (Auto) 0.6 0.7 (0.0-0.9) th/mm3 Eos # (Auto) 0.1 0.1 (0.0-0.4) th/mm3 Baso # (Auto) 0.0 0.0 (0.0-0.2) th/mm3 Comprehensive Metabolic Panel 03/20/18 03/21/18 Range/Units 12:30 02:30 Sodium 140 139 (136-145) meq/L Potassium 4.1 3.9 (3.5-5.1) meq/L Chloride 106 105 (98-107) meq/L Carbon Dioxide 28.8 26.0 (21.0-32.0) meq/L BUN 26 H 23 H (7-18) mg/dL Creatinine 1.46 H 1.36 H (0.60-1.30) mg/dL Calcium 8.8 8.5 (8.5-10.1) mg/dL Intake and Output 03/21/18 03/22/18 03/22/18 22:59 06:59 14:59 Intake Total 250 / 250 240 / 240 Output Total 300 / 300 Balance 250 / 250 -60 / -60 Intake: IV 250 / 250 Heparin/D5W 25,000 U/250 mL 25, 250 / 250 000 unit In 250 ml @ Per Protocol IV.CONT TITRATE PRN Rx #:[id number] Oral 240 / 240 Output: Urine 300 / 300 Other: # Voids 3 Date of Last Bowel Movement 03/20/18 03/20/18 03/20/18 Weight 89 kg - Imaging and Cardiology Imaging: Impressions Carotid Doppler Study 03/21/18 15:05 CONCLUSION: 1. There is some mild to moderate atherosclerotic plaquing at the carotid bifurcations. 2. No hemodynamically significant stenosis is demonstrated. Lower Extremity Ultrasound 03/21/18 15:05 CONCLUSION: 1. Venous mapping as above. Venous Doppler Study 03/21/18 15:05 CONCLUSION: No evidence of lower extremity DVT on the right or left. Chest X-Ray 03/21/18 15:09 CONCLUSION: No acute intrathoracic disease. 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 Hernandez Heparin drip 2) Echo (12/2017) EF 55-60%, stage 1 DD, mild MR, trace AR
[2018-03-22] MEDS ORDERED: Heparin - SQ 10,000 UNITS/ML Vial ONE ×2 (13:08→13:30)
[2018-03-22] MEDS ORDERED: Sodium Chlor 0.9% Inj 300 ML IV.CONT ONE (13:48)
[2018-03-22] MEDS ORDERED: ceFAZolin 2 GM Premix Inj 2 GM/50 ML PIGGYBACK IV.SIG ONE ×2 (13:58→18:30)
--- NOTE | 2018-03-22 16:11 | ECG ---
Date Performed: 03/21/2018 Time Performed: 15:35:02 PTAGE: 77 years EKG: Sinus rhythm with PAC(s). Left axis deviation Anterior T wave changes are nonspecific Low QRS voltages in limb le ads Since previous tracing, no significant change noted Abnormal ECG PREVIOUS TRACING : 07/19/2017 11.40 DOCTOR: Daryl Castro Interpretating Date/Time 03/22/2018 16:10:49
[2018-03-22] MEDS ORDERED: Sodium Chlor 0.9% Inj 250 ML IV.CONT ONE (17:29)
[2018-03-22] MEDS ORDERED: Protamine Sulfate Inj 50 MG/5 ML Vial IV.CONT ONE (17:29)
[2018-03-22] MEDS ORDERED: Heparin - SQ 10,000 UNITS/ML Vial OTHER ONE (17:29)
[2018-03-22] MEDS ORDERED: Dexmedetomidine Inj 200 MCG/2 ML Vial IV.CONT ONE (17:29)
[2018-03-22] MEDS ORDERED: Phenylephrine/NS 1000 MCG/10ML Syringe IV.PUSH ONE (17:29)
[2018-03-22] MEDS ORDERED: Normosol-R pH 7.4 Inj 1,000 ML IV.CONT ONE (17:29)
[2018-03-22] MEDS ORDERED: Succinylcholine Inj 100 MG/5 ML Syringe IV.PUSH ONE (17:29)
[2018-03-22] MEDS ORDERED: Propofol Inj 500 MG/50 ML Vial IV.CONT ONE (17:29)
[2018-03-22] MEDS ORDERED: Sodium Chlor 0.9% Inj 500 ML IV.CONT ONE (17:29)
[2018-03-22] MEDS ORDERED: Dextrose 50% in Water 50 ML Vial IV.PUSH PRN (18:07)
[2018-03-22] MEDS ORDERED: Insulin Regular (For Infusion) 100 UNIT in Sodium Chlor 0.9% Inj 99 ML IV.CONT PRN (18:07)
[2018-03-22] MEDS ORDERED: Clevidipine Inj 25 MG/50 ML VIAL IV.CONT PRN (18:07)
[2018-03-22] MEDS ORDERED: Phenylephrine Inj 40 MG in Sodium Chlor 0.9% Inj 496 ML IV.CONT PRN (18:07)
[2018-03-22] MEDS ORDERED: RESP: Racemic Epinephrine 2.25% 0.5 ML Neb NEB PRN (18:07)
[2018-03-22] MEDS ORDERED: Albumin Human 5% Inj 250 ML IV.SIG PRN (18:07)
[2018-03-22] MEDS ORDERED: Post-op Orders (for Pharmacy) OTHER STA (18:07)
[2018-03-22] MEDS ORDERED: Metoprolol Inj 5 MG/5 ML Vial IV.PUSH PRN (18:07)
[2018-03-22] MEDS ORDERED: Potassium Chlor 20 mEq Premix 20 MEQ/100 ML PIGGYBACK IV.SIG PRN ×2 (18:07)
[2018-03-22] MEDS ORDERED: Calcium Chloride Inj 1 GM/10 ML Syringe IV.PUSH PRN (18:07)
[2018-03-22] MEDS ORDERED: Dexmedetomidine Inj 200 MCG in Sodium Chlor 0.9% Inj 50 ML IV.CONT PRN (18:07)
[2018-03-22] MEDS ORDERED: Morphine Sulfate Inj 2 MG/ML Vial IV.PUSH PRN (18:07)
[2018-03-22] MEDS ORDERED: Calcium Chloride Inj 1 GM in Sodium Chlor 0.9% Inj 100 ML IV.SIG PRN (18:07)
[2018-03-22] MEDS ORDERED: Magnesium Sulfate Inj 2 GM in Sodium Chlor 0.9% Inj 96 ML IV.SIG PRN ×4 (18:07)
--- NOTE | 2018-03-22 18:15 | P.OP ---
Date of procedure: 03/22/18 Anesthesia: SAMSONA Surgeon: Melecio Hernandez MD Operation and Findings: PREPROCEDURE DIAGNOSES 1. Severe Left Main coronary Artery Disease. 2. Unstable angina POSTPROCEDURE DIAGNOSES Same SURGICAL PROCEDURE 1. Urgent Off-pump Coronary Artery Bypass Grafting x 2 with Left Internal Mammary Artery (SANDS) to Left Anterior Descending (LAD), reverse saphenous vein graft to obtuse Marginal branch of the left Circumflex artery 2. Left leg Endoscopic Vein [place] 3. Intraoperative Vein Mapping. SURGEON Melecio Hernandez MD CONFIGURATION DEVELOPER DIANE Angel ANESTHESIA General endotracheal MULTIPLE KNIFE EDGE TRIMMER OPERATOR SELMA Adams MD PREPARATION ChloraPrep. COUNTS Needle, sponge, and instrument counts were correct. DRAINS Two 32[place] mediastinal tubes. COMPLICATIONS None. INDICATIONS FOR PROCEDURE The patient is a 77-year-old presenting with chest pain. Patient was noted to have left main coronary artery disease. The patient is being brought to the operating room for surgical revascularization therapy. PROCEDURE Patient was brought to the operating room and placed supine on the OR table. Following the induction of adequate general endotracheal anesthesia and placement of appropriate monitoring devices, intraoperative vein mapping was performed which revealed good-caliber conduit in bilateral lower extremities. The patient was then prepped and draped in standard sterile fashion. Next, 2500 units of intravenous heparin was given. The left greater saphenous vein was harvested endoscopically. This appeared to be a useable-caliber conduit. Simultaneously, a median sternotomy was performed and the left internal mammary artery dissected free off the posterior sternal table. The patient was systemically heparinized and anticoagulation monitored by serial ACT measurements. The internal mammary artery had excellent pulsatile flow in it and was a good-caliber conduit. The pericardium was then divided in the midline , the cradle created and targets analyzed. At this point, all anastomoses were performed in a beating-heart fashion using the [employer] stabilizing system. The left internal mammary artery was anastomosed to the mid LAD (2.5 mm) in an end- to-side fashion using 7-0 Prolene. Segment of saphenous vein graft was then anastomosed to the OM1 (2 mm) in an end-to-side fashion using 7-0 Prolene. The proximal anastomosis was then constructed to the ascending aorta in a running manner using 6-0 Prolene. All anastomotic sites were inspected and appeared to be hemostatic and patent. Protamine solution was given. Strict hemostasis was assured. The closure was undertaken. 2 chest tubes were placed. The pericardium was reapproximated in the midline. The sternum was approximated using sternal wires. The muscular and fascial layer were then closed in 3 layers. The endoscopic vein harvest site was closed in 2 layers. The patient tolerated the procedure well and was transferred to CVICU in stable condition.
[2018-03-22] MEDS ORDERED: ceFAZolin 1 GM Premix Inj 0 GM/0 ML FROZ.PIGGY IV.SIG ONE (18:29)
[2018-03-22] MEDS ORDERED: Calcium Chloride Inj 1 GM/10 ML Syringe ONE (18:47)
[2018-03-22] MEDS ORDERED: Potassium Chlor 20 mEq Premix 20 MEQ/100 ML PIGGYBACK IV.SIG ONE (18:47)
[2018-03-22] MEDS ORDERED: ceFAZolin Inj 2,000 MG in Sodium Chlor 0.9% Inj 80 ML IV.SIG SCH (19:00)
[2018-03-22] MEDS ORDERED: fentaNYL Citrate Inj 250 MCG/5 ML Ampul ONE ×2 (19:20)
--- NOTE | 2018-03-22 19:49 | XR ---
EXAM DATE: 03/22/2018 7:46 PM EST AGE/SEX: 77 years / Male INDICATIONS: Post op CABG. CLINICAL DATA: This is the patient's initial encounter. Patient reports that signs and symptoms have been present for 1 day and indicates a pain score of Nonresponsive. MEDICAL/SURGICAL HISTORY: . Carcinoma, prostatic. Hypertension. None. COMPARISON: [facility] – [place], CHEST 2V PA&LAT, 03/21/2018. . FINDINGS: NG tube is present with tip in the stomach. There is evidence for prior median sternotomy. Left chest tube is in place. No definite pneumothorax is seen for technique. Right IJ line is present with tip overlapping the expected region of the SVC. Slight pulmonary edema is seen with perihilar atelectasis and/or infiltrate worse on the left. Left pleural effusion is dif ficult to exclude. CONCLUSION: There is perihilar atelectasis and/or infiltrate worse on the left with possible small left pleural e ffusion. Electronically signed by: Keyla Riley MD 03/22/2018 7:47 PM EST
--- NOTE | 2018-03-22 20:36 | P.CONCC ---
History of Present Illness Service: Critical Care Medicine Consult date: 03/22/18 Requesting Physician: Melecio Hernandez Reason for Consult: perioperative hemodynamic management Primary Care Provider: Nixon Mata MD History of Present Illness: 77yM with CAD who presented with severe left main disease for CABG. He underwent urgent off-pump CABG x 2 (SANDS-->LAD, SVG-->OM). He arrives to the CVICU in stable condition. He remains intubated, but chest tubes have minimal drainage, uop adequate, initial abg and labs appropriate. ROS unobtainable due to endotracheal tube. Review of Systems unobtainable due to endotracheal tube PMFSH - History History Provided By: Medical Record - Medical History Medical History: Medical History (Last Reviewed 03/22/18 @ 23:10 by Nathaniel Ace MD) Anxiety Aortic stenosis CKD (chronic kidney disease), stage II HLD (hyperlipidemia) HTN (hypertension) Hypothyroid Neuropathy Prostate cancer Shortness of breath - Family History Family History: Family History (Last Reviewed 03/22/18 @ 23:10 by Nathaniel Ace MD) Other Diabetes - Social History I have reviewed the patient's Social History: Yes - Tobacco History Smoking Status: Former smoker - Alcohol History How Often Do You Have a Drink Containing Alcohol: 2 to 4 times a month Medications and Allergies Active Medications: Active Medications Hydrocodone Bitart/Acetaminophen ([place] 5/325) 1 tab PO Q3H PRN PRN Reason: PAIN SCALE 1 TO 5 Albuterol (Duoneb Neb (Prn)) 1 ampul NEB Q2HR NEB PRN PRN Reason: WHEEZING Albuterol (Duoneb Neb (Anupama)) 1 ampul NEB Q6HR NEB [facility]UP[facility] Amiodarone HCl (Cordarone) 200 mg PO Q12HR [facility] Amlodipine Besylate (Norvasc) 5 mg PO DAILY [facility] Last Admin: 03/22/18 08:38 Dose: Not Given Aspirin (Aspirin Chew) 81 mg PO DAILY [facility] Atorvastatin Calcium (Lipitor) 40 mg PO HS [facility] Last Admin: 03/21/18 21:17 Dose: 40 mg Brimonidine Tartrate (Alphagan 0.2% Opth Drops) 1 drops EACH EYE TID [facility] Last Admin: 03/22/18 20:24 Dose: Not Given Calcium Chloride (Calcium Chloride Inj) 0.5 gm IV.PUSH UNSCH PRN PRN Reason: SEE LABEL COMMENTS Chlorhexidine Gluconate (Hibiclens 4% Topical) 1 applicatio TOPICAL SSIS ARCHITECT [facility] Stop: 03/27/18 22:21 Clopidogrel Bisulfate (Plavix) 75 mg PO DAILY [facility] Sodium Chloride 77.5 ml/Papaverine HCl 60 mg/Nitroglycerin 100 mcg/Diltiazem HCl 100 mg 0 ml IRRIGATION SSIS ARCHITECT [facility] Stop: 03/27/18 22:21 Sodium Chloride 500 ml/ (Cefazolin Sodium 500 mg) 0 ml IRRIGATION SSIS ARCHITECT [facility] Stop: 03/27/18 22:22 Dextrose (D50w Vial) 50 ml IV.PUSH UNSCH PRN PRN Reason: PER HYPOGLYCEMIA PROTOCOL Dextrose (D50w Vial) 50 ml IV.PUSH UNSCH PRN PRN Reason: PER HYPOGLYCEMIA PROTOCOL Dextrose (D50w Vial) 50 ml IV.PUSH UNSCH PRN PRN Reason: PER HYPOGLYCEMIA PROTOCOL Epinephrine (Racepinephrine 2.25% Neb) 0.5 ml NEB UNSCH X1 PRN PRN Reason: STRIDOR Fentanyl Citrate (Fentanyl Inj) 25 mcg IV.PUSH Q1H PRN PRN Reason: BREAKTHROUGH PAIN Glucagon (Glucagon Inj) 1 mg OTHER PRN PRN PRN Reason: for Hypoglycemia Protocol Sodium Chloride (Ns Inj) 1,000 mls @ 30 mls/hr IV.CONT .Q24H [facility] Last Admin: 03/22/18 20:24 Dose: Not Given Insulin Human Regular 100 unit (/ Sodium Chloride) 100 mls @ 3 mls/hr IV.CONT TITRATE PRN; Protocol PRN Reason: See Protocol Cefazolin Sodium/Dextrose (Ancef 2 Gm Premix Inj) 2 gm in 50 mls @ 100 mls/hr IV.SIG SSIS ARCHITECT [facility] Stop: 03/24/18 22:59 Last Infusion: 03/22/18 14:50 Dose: Infused Lactated Ringer's (Lr 1000 Ml Inj) 1,000 mls @ 30 mls/hr IV.SIG .Q24H [facility] Stop: 03/23/18 02:14 Last Admin: 03/22/18 08:14 Dose: Not Given Sodium Chloride (Ns Inj) 500 mls @ 30 mls/hr IV.SIG .Q10H [facility] Last Admin: 03/22/18 08:14 Dose: Not Given Acetaminophen (Ofirmev Inj) 1,000 mg in 100 mls @ 400 mls/hr IV.SIG Q6H [facility] Stop: 03/23/18 15:14 Albumin Human (Buminate 5% Inj) 250 mls @ 250 mls/hr IV.SIG UNSCH PRN PRN Reason: SEE LABEL COMMENTS Calcium Chloride 1 gm/ Sodium (Chloride) 110 mls @ 100 mls/hr IV.SIG PRN PRN PRN Reason: SEE LABEL COMMENTS Clevidipine (Cleviprex Inj) 25 mg in 50 mls @ 2 mls/hr IV.CONT TITRATE PRN; Protocol PRN Reason: Per protocol Dexmedetomidine HCl 200 mcg/ (Sodium Chloride) 52 mls @ 4.62 mls/hr IV.CONT TITRATE PRN; Protocol PRN Reason: Per Protocol Insulin Human Regular 100 unit (/ Sodium Chloride) 100 mls @ 3 mls/hr IV.CONT TITRATE PRN; Protocol PRN Reason: See Protocol Lactated Ringer's (Lr 1000 Ml Inj) 500 mls @ 500 mls/hr IV.SIG .Q1H PRN PRN Reason: SEE LABEL COMMENTS Magnesium Sulfate 2 gm/ Sodium (Chloride) 100 mls @ 50 mls/hr IV.SIG PRN PRN PRN Reason: SEE LABEL COMMENTS Phenylephrine HCl 40 mg/ (Sodium Chloride) 500 mls @ 30 mls/hr IV.CONT TITRATE PRN; Protocol PRN Reason: See Protocol Potassium Chloride (Kcl 20 Meq Premix Inj) 20 meq in 100 mls @ 50 mls/hr IV.SIG PRN PRN PRN Reason: SEE LABEL COMMENTS Potassium Chloride (Kcl 20 Meq Premix Inj) 20 meq in 100 mls @ 50 mls/hr IV.SIG PRN PRN PRN Reason: SEE LABEL COMMENTS Potassium Chloride (Kcl 20 Meq Premix Inj) 20 meq in 100 mls @ 50 mls/hr IV.SIG PRN PRN PRN Reason: SEE LABEL COMMENTS Magnesium Sulfate 2 gm/ Sodium (Chloride) 100 mls @ 50 mls/hr IV.SIG PRN PRN PRN Reason: SEE LABEL COMMENTS Cefazolin Sodium/Dextrose (Ancef 2 Gm Premix Inj) 2 gm in 50 mls @ 100 mls/hr IV.SIG Q8H [facility] Stop: 03/24/18 10:29 Insulin Human Regular (Novolin R Correctional Sugar Inj) 0 units SQ ACHS [facility]; Protocol Last Admin: 03/22/18 12:09 Dose: Not Given Ketorolac Tromethamine (Toradol Inj) 15 mg IV.PUSH Q6H PRN PRN Reason: SEE LABEL COMMENTS Stop: 03/24/18 18:06 Latanoprost (Xalatan 0.005% Opth Drops) 1 drop EACH EYE QPM [facility] Last Admin: 03/22/18 08:41 Dose: Not Given Levothyroxine Sodium (Synthroid) 150 mcg PO DAILY@0600 [facility] Last Admin: 03/22/18 05:39 Dose: 150 mcg Lorazepam (Ativan) 0.5 mg PO BID PRN PRN Reason: Anxiety Last Admin: 03/22/18 03:36 Dose: 0.5 mg Meperidine HCl (Demerol Inj) 12.5 mg IV.PUSH Q4H PRN PRN Reason: SHIVERING Metoprolol Tartrate (Lopressor Inj) 2.5 mg IV.PUSH Q1H PRN PRN Reason: SEE LABEL COMMENTS Morphine Sulfate (Morphine Inj) 1 mg IV.PUSH Q10M PRN PRN Reason: PAIN SCALE 1 TO 5 Ondansetron HCl (Zofran Inj) 4 mg IV.PUSH Q6H PRN PRN Reason: NAUSEA OR VOMITING Pantoprazole Sodium (Protonix) 40 mg PO DAILY@06 [facility] Phenylephrine HCl (Neosynephrine Inj) 0.1 mg IV.PUSH UNSCH PRN PRN Reason: SEE LABEL COMMENTS Polymyxin/Trimethoprim Sulfate (Polytrim Opth Drops) 1 drop EACH EYE Q3H [facility] Last Admin: 03/22/18 20:27 Dose: Not Given Potassium Chloride (K-Dur) 20 meq PO UNSCH PRN PRN Reason: SEE LABEL COMMENTS Potassium Chloride (K-Dur) 40 meq PO UNSCH PRN PRN Reason: SEE LABEL COMMENTS Sodium Bicarbonate (Sodium Bicarbonate 8.4% Inj) 100 meq IV.PUSH UNSCH PRN PRN Reason: SEE LABEL COMMENTS Sodium Bicarbonate (Sodium Bicarbonate 8.4% Inj) 50 meq IV.PUSH UNSCH PRN PRN Reason: SEE LABEL COMMENTS Sodium Chloride (Ns Flush) 2 ml IV.FLUSH BID [facility] Last Admin: 03/22/18 08:38 Dose: 2 ml Sodium Chloride (Ns Flush) 2 ml IV.FLUSH PRN PRN PRN Reason: FLUSH AFTER USING IV ACCESS Terbutaline Sulfate (Brethine Inj) 1 mg SQ ONCE PRN PRN Reason: Extravasation Terbutaline Sulfate (Brethine Inj) 1 mg SQ UNSCH PRN PRN Reason: For Extravasation Terbutaline Sulfate (Brethine Inj) 1 mg SQ UNSCH PRN PRN Reason: For Extravasation Allergies Allergy/AdvReac Type Severity Reaction Status Date / Time No Known Allergies Allergy Verified 03/20/18 12:49 Home Medications Medication Instructions Recorded Confirmed Type alendronate 70 mg PO QWEEK 03/20/18 03/20/18 History amlodipine 5 mg PO DAILY 03/20/18 03/20/18 History brimonidine 1 drp OPHTHALMIC (EYE) TID 03/20/18 03/20/18 History glipizide 5 mg PO DAILY 03/20/18 03/20/18 History latanoprost 1 drp OPHTHALMIC (EYE) QPM 03/20/18 03/20/18 History levothyroxine 150 mcg PO DAILY 03/20/18 03/20/18 History lorazepam 1 tab PO BID PRN 03/20/18 03/20/18 History lovastatin 40 mg PO DAILY 03/20/18 03/20/18 History metformin 500 mg PO BID 03/20/18 03/20/18 History metoprolol tartrate 50 mg PO BID 03/20/18 03/20/18 History omega-3 fatty acids-fish oil [Fish 1 cap PO DAILY 03/20/18 03/20/18 History Oil] polymyxin B sulf-trimethoprim 1 drp OPHTHALMIC (EYE) Q3H 03/20/18 03/20/18 History Physical Exam Vital signs: Vital Signs 03/21/18 21:00 03/21/18 22:00 03/21/18 23:00 Temperature Pulse Rate 88 86 80 Respiratory Rate Blood Pressure Pulse Oximetry 03/21/18 23:05 03/22/18 00:00 03/22/18 01:00 Temperature 36.6 C Pulse Rate 78 94 H 64 Respiratory Rate 18 Blood Pressure 127/62 Pulse Oximetry 96 03/22/18 02:00 03/22/18 03:00 03/22/18 04:00 Temperature Pulse Rate 72 52 L 87 Respiratory Rate Blood Pressure Pulse Oximetry 03/22/18 05:00 03/22/18 05:47 11/09/18 07:00 Temperature 36.6 C Pulse Rate 74 74 87 Respiratory Rate 20 Blood Pressure 170/86 H Pulse Oximetry 95 03/22/18 08:00 03/22/18 09:00 03/22/18 10:00 Temperature Pulse Rate 87 84 75 Respiratory Rate Blood Pressure Pulse Oximetry 03/22/18 11:00 03/22/18 12:00 03/22/18 13:00 Temperature 36.6 C Pulse Rate 69 87 74 Respiratory Rate Blood Pressure 128/64 Pulse Oximetry 03/22/18 18:30 03/22/18 19:46 Temperature Pulse Rate Respiratory Rate 10 L 13 Blood Pressure Pulse Oximetry 93 L 99 Intake & Output 03/22/18 03/22/18 03/23/18 06:59 18:59 06:59 Intake Total 240 / 240 3850 / 3850 Output Total 300 / 300 900 / 900 Balance -60 / -60 2950 / 2950 Weight 89 kg Intake: IV 50 / 50 Ancef 2 GM Premix Inj 2 gm In 50 / 50 50 ml @ 100 mls/hr IV.SIG SSIS ARCHITECT [facility] Rx#:[id number] Oral 240 / 240 Anesthesia Amount 3500 / 3500 Cell Saver Amount 300 / 300 Output: Urine 300 / 300 Estimated Blood Loss 700 / 700 Urine Amount (Catheter) 200 / 200 Indwelling Temp Sensing 200 / 200 Catheter Other: # Voids 3 Date of Last Bowel Movement 03/20/18 03/20/18 Narrative: GENERAL: Elderly male, lying in bed, intubated, sedated. HEENT: Normocephalic. Atraumatic. Pupils equal, round, reactive, conjugate. Mucous membranes are moist NECK: Trachea is midline. There is no JVD. There is a right IJ introducer sheath with a dressing which is clean dry and intact. CHEST: PRVC mode of ventilation. PEEP of 5. FiO2 40%. SPO2 98%. There is a midline sternal dressing with a VAC dressing in place, clean dry and intact. 2 chest tubes exit subxiphoid with a minimal amount of sanguinous output. No air leak. CARDIOVASCULAR: Normal rate, regular rhythm. Sinus. ABDOMEN: Soft, nontender, nondistended. No guarding. MUSCULOSKELETAL: Pulses 2+. No peripheral edema. Lower extremities wrapped in Reinaldo dressing. Radial art line in place site clean dry and intact. NEUROLOGICAL: RASS -2. Arouses and follows commands. Moves all extremities. No focal deficits. - Urinary Catheter Management Indwelling Temp Sensing Catheter Cath placed during this visit: yes Reason for continuing: Hourly intake/output Insertion date: 03/22/18 Insertion time: 14:21 Assessment and Plan - Assessment and Plan Plan: Assessment: 77yM POD 0 s/p urgent off-pump CABG x 2 (SANDS-->LAD, SVG-->OM). will wean to extubate on pathway. close monitoring in the setting of high-risk left-main lesion. s/p urgent off-pump CABG x 2 (SANDS-->LAD, SVG-->OM) 03/22 - watch chest tube output - q1h uop - trend lactates - trend abg - wean to extubate on pathway - amiodarone per CT surgery CAD - ASA in AM - hold beta angélica tonight Hypertension - hold anti-hypertensives - restart in AM Hyperglycemia - insulin drip tonight transitioning to SSI in the AM. Hyperlipidemia - restart statin Hypothyroidism - home synthroid CKD, stage III - volume resuscitation tonight. will start diuresis POD 1. Critical care medicine will continue to follow while patient remains in the CVICU.
[2018-03-22] MEDS: Potassium Chlor 20 mEq Premix 20 MEQ/100 ML PIGGYBACK IV.SIG PRN (21:24)
[2018-03-22] MEDS: fentaNYL Citrate Inj 100 MCG/2 ML Ampul IV.PUSH PRN (22:13)
[2018-03-22] MEDS: Ketorolac Inj 30 MG/ML (IVP) Vial IV.PUSH PRN (22:28)
[2018-03-22] MEDS: Amiodarone 200 MG Tablet PO SCH (22:32)
[2018-03-23] MEDS: ceFAZolin 2 GM Premix Inj 2 GM/50 ML PIGGYBACK IV.SIG SCH ×3 (01:50→19:43)
[2018-03-23] MEDS: fentaNYL Citrate Inj 100 MCG/2 ML Ampul IV.PUSH PRN ×4 (02:00→06:07)
[2018-03-23] MEDS: Polymyxin/Trimethop Opth Drops 10 ML Bottle EACH EYE SCH ×7 (02:31→21:20)
[2018-03-23 04:41] LABS: Hematocrit 22.1 % (39.0-51.0); Hemoglobin 7.5 gm/dL (13.0-17.0); Mean Corpuscular HGB Conc 33.9 % (32.0-36.0); Mean Corpuscular Hemoglobin 28.3 pg (27.0-34.0); Mean Corpuscular Volume 83.5 fL (80.0-100.0); Mean Platelet Volume 6.6 fL (7.0-11.0); Platelet Count 150 th/mm3 (150-450); Red Blood Count 2.65 mil/mm3 (4.50-5.90); Red Cell Distribution Width 17.9 % (11.6-17.2); White Blood Count 9.1 th/mm3 (4.0-11.0)
[2018-03-23 05:07] LABS: Carbon Dioxide 23.9 meq/L (21.0-32.0); Magnesium 2.5 mg/dL (1.5-2.5); Potassium 3.9 meq/L (3.5-5.1)
--- NOTE | 2018-03-23 05:47 | XR ---
EXAM DATE: 03/23/2018 4:43 AM EST AGE/SEX: 77 years / Male INDICATIONS: Shortness of breath, possible pneumothorax. CLINICAL DATA: This is the patient's subsequent encounter. Patient reports that signs and symptoms h ave been present for 3 days and indicates a pain score of 8/10. MEDICAL/SURGICAL HISTORY: Carcinoma, prostatic. Hypertension. CABG. COMPARISON: C, CHEST 1V SINGLE AP, 03/22/2018. . FINDINGS: A single AP view of the chest demonstrates interval extubation and removal of the nasogastric tube. 2 thoracostomy tubes and right-sided central line remain. Worsening consolidation involving the left b ase. Right lung is relatively clear. No effusions. Heart is mildly enlarged. CONCLUSION: 1. Interval extubation. 2. Worsening left basilar consolidation. Electronically signed by: Jorge Wyatt MD 03/23/2018 5:45 AM EST
[2018-03-23] MEDS: Ketorolac Inj 30 MG/ML (IVP) Vial IV.PUSH PRN ×2 (06:06→21:12)
[2018-03-23] MEDS: Levothyroxine 150 MCG Tablet PO SCH (06:08)
[2018-03-23] MEDS: Potassium Chlor 20 mEq Premix 20 MEQ/100 ML PIGGYBACK IV.SIG PRN (06:11)
--- NOTE | 2018-03-23 08:04 | P.PNCV ---
- Note Subjective/Hospital Course: 03/22 SURGICAL PROCEDURE 1. Urgent Off-pump Coronary Artery Bypass Grafting x 2 with Left Internal Mammary Artery (SANDS) to Left Anterior Descending (LAD), reverse saphenous vein graft to obtuse Marginal branch of the left Circumflex artery 2. Left leg Endoscopic Vein [place] 3. Intraoperative Vein Mapping. 03/23 Doing well postoperatively Extubated and tolerating Transfer to telemetry stepdown unit today Maintain chest tube to drainage Discharge planning Objective: Vital Signs - 24 hr 03/22/18 09:00 03/22/18 10:00 03/22/18 11:00 Temperature 97.9 F Pulse Rate 84 75 69 Respiratory Rate Blood Pressure 128/64 Pulse Oximetry 03/22/18 12:00 03/22/18 13:00 03/22/18 18:30 Temperature Pulse Rate 87 74 Respiratory Rate 10 L Blood Pressure Pulse Oximetry 93 L 03/22/18 19:00 03/22/18 19:46 03/22/18 20:45 Temperature 97.9 F Pulse Rate 87 Respiratory Rate 25 H 13 21 Blood Pressure 128/67 Pulse Oximetry 97 99 94 L 03/22/18 21:30 03/22/18 21:37 03/22/18 23:00 Temperature 98.2 F Pulse Rate 87 78 Respiratory Rate 18 18 Blood Pressure 116/60 Pulse Oximetry 94 L 94 L 03/23/18 02:25 03/23/18 02:28 03/23/18 03:00 Temperature 98.1 F Pulse Rate 86 Respiratory Rate 18 Blood Pressure 107/56 L Pulse Oximetry 93 L 94 L 97 03/23/18 03:18 03/23/18 06:11 Temperature Pulse Rate 83 97 H Respiratory Rate 18 18 Blood Pressure Pulse Oximetry Labs: Laboratory Results - last 12 hr 03/22/18 03/22/18 03/23/18 20:18 22:12 00:08 WBC RBC Hgb Hct MCV MCH MCHC RDW Plt Count MPV Sodium Potassium Chloride Carbon Dioxide Anion Gap BUN Creatinine Estimated GFR POC Glucose 120 H 128 H 97 Random Glucose Calcium Magnesium 03/23/18 03/23/18 03/23/18 04:28 04:30 04:30 WBC 9.1 RBC 2.65 L Hgb 7.5 L Hct 22.1 L MCV 83.5 MCH 28.3 MCHC 33.9 RDW 17.9 H Plt Count 150 MPV 6.6 L Sodium 139 Potassium 3.9 Chloride 107 Carbon Dioxide 23.9 Anion Gap 8 BUN 14 Creatinine 1.12 Estimated GFR 64 L POC Glucose 102 Random Glucose 98 Calcium 8.0 L Magnesium 2.5 Result Diagrams: 03/23/18 04:30 03/23/18 04:30
[2018-03-23] MEDS ORDERED: Sod Phosphate/Sod Biphosphate (Adult) Enema 133 ML Bottle RECTAL PRN (08:06)
[2018-03-23] MEDS ORDERED: Bisacodyl 10 MG Supp RECTAL PRN (08:06)
--- NOTE | 2018-03-23 10:01 | ECG ---
Date Performed: 03/23/2018 Time Performed: 04:40:28 PTAGE: 77 years EKG: Sinus rhythm . Anterior T wave changes are nonspecific Borderline ECG No significant change from prior electrocard iogram. PREVIOUS TRACING : 03/21/2018 15.35 DOCTOR: Jefferson Hall Interpretating Date/Time 03/23/2018 10:00:06
[2018-03-23] MEDS: Amiodarone 200 MG Tablet PO SCH ×2 (10:29→21:12)
[2018-03-23] MEDS: Brimonidine 0.2% Opth Drops 5 ML Bottle EACH EYE SCH ×3 (10:30→19:43)
[2018-03-23] MEDS: Multivitamin/Minerals Therapeutic Tablet PO SCH (10:30)
[2018-03-23] MEDS ORDERED: Dextrose 50% in Water 50 ML Vial IV.PUSH PRN (11:31)
--- NOTE | 2018-03-23 13:43 | P.PNCV ---
- Note Subjective/Hospital Course: Risk Model and Variables - STS Adult Cardiac Surgery Database Version 2.81 RISK SCORES About the STS Risk Calculator Procedure: CAB Only Risk of Mortality: 1.911% Morbidity or Mortality: 16.246% Long Length of Stay: 5.989% Short Length of Stay: 41.77% Permanent Stroke: 0.973% Prolonged Ventilation: 9.966% DSW Infection: 0.442% Renal Failure: 5.879% Reoperation: 5.808% Objective: Vital Signs - 24 hr 03/22/18 18:30 03/22/18 19:00 03/22/18 19:46 Temperature 97.9 F Pulse Rate 87 Respiratory Rate 10 L 25 H 13 Blood Pressure 128/67 Pulse Oximetry 93 L 97 99 03/22/18 20:45 03/22/18 21:30 03/22/18 21:37 Temperature Pulse Rate 87 Respiratory Rate 21 18 Blood Pressure Pulse Oximetry 94 L 94 L 03/22/18 23:00 03/23/18 02:25 03/23/18 02:28 Temperature 98.2 F Pulse Rate 78 Respiratory Rate 18 Blood Pressure 116/60 Pulse Oximetry 94 L 93 L 94 L 03/23/18 03:00 03/23/18 03:18 03/23/18 06:11 Temperature 98.1 F Pulse Rate 86 83 97 H Respiratory Rate 18 18 18 Blood Pressure 107/56 L Pulse Oximetry 97 03/23/18 07:00 03/23/18 09:47 03/23/18 11:00 Temperature 98 F 98.2 F Pulse Rate 101 H 103 H 110 H Respiratory Rate 16 20 16 Blood Pressure 134/56 L 128/66 Pulse Oximetry 95 95 95 Labs: Laboratory Results - last 12 hr 03/21/18 03/23/18 03/23/18 20:23 04:28 04:30 WBC 9.1 RBC 2.65 L Hgb 7.5 L Hct 22.1 L MCV 83.5 MCH 28.3 MCHC 33.9 RDW 17.9 H Plt Count 150 MPV 6.6 L Sodium Potassium Chloride Carbon Dioxide Anion Gap BUN Creatinine Estimated GFR POC Glucose 102 Random Glucose Calcium Magnesium Blood Type A Positive Antibody Screen Negative MTS Gel Crossmatch See Detail Bld Prod Order Comment 03/23/18 03/23/18 03/23/18 04:30 08:06 10:02 WBC RBC Hgb Hct MCV MCH MCHC RDW Plt Count MPV Sodium 139 Potassium 3.9 Chloride 107 Carbon Dioxide 23.9 Anion Gap 8 BUN 14 Creatinine 1.12 Estimated GFR 64 L POC Glucose 120 H 171 H Random Glucose 98 Calcium 8.0 L Magnesium 2.5 Blood Type Antibody Screen MTS Gel Crossmatch Bld Prod Order Comment 03/23/18 11:15 WBC RBC Hgb Hct MCV MCH MCHC RDW Plt Count MPV Sodium Potassium Chloride Carbon Dioxide Anion Gap BUN Creatinine Estimated GFR POC Glucose 146 H Random Glucose Calcium Magnesium Blood Type Antibody Screen MTS Gel Crossmatch Bld Prod Order Comment Result Diagrams: 03/23/18 04:30 03/23/18 04:30
[2018-03-23] MEDS: Metoprolol Tartrate 25 MG Tablet PO SCH ×2 (14:24→21:11)
[2018-03-23] MEDS: Insulin NovoLOG Aspart Correctional Sugar Inj SQ SCH ×4 (14:24→23:40)
[2018-03-23] MEDS: Sod Chloride 0.9% Inj 1,000 ML IV.CONT SCH (14:27)
[2018-03-23] MEDS: amLODIPine 5 MG Tablet PO SCH (15:06)
[2018-03-23] MEDS: Timolol 0.5% Drops 5 ML Bottle LEFT EYE SCH ×2 (15:08→21:13)
[2018-03-23] MEDS: Latanoprost 0.005% Opth Drops 2.5 ML Bottle EACH EYE SCH (19:44)
[2018-03-23] MEDS: Docusate Sodium 100 MG Capsule PO SCH (21:11)
[2018-03-24] MEDS: ceFAZolin 2 GM Premix Inj 2 GM/50 ML PIGGYBACK IV.SIG SCH ×2 (03:37→10:17)
[2018-03-24] MEDS: Ketorolac Inj 30 MG/ML (IVP) Vial IV.PUSH PRN (03:37)
[2018-03-24 06:09] LABS: Baso % (Auto) 0.2 % (0.0-2.0); Eos # (Auto) 0.1 th/mm3 (0.0-0.4); Eos % (Auto) 1.2 % (0.0-4.0); Lymph # (Auto) 0.8 th/mm3 (1.0-4.8); Lymph % (Auto) 10.5 % (9.0-44.0); Mean Corpuscular HGB Conc 33.5 % (32.0-36.0); Mean Corpuscular Hemoglobin 28.5 pg (27.0-34.0); Mean Corpuscular Volume 85.1 fL (80.0-100.0); Mean Platelet Volume 6.9 fL (7.0-11.0); Mono # (Auto) 0.8 th/mm3 (0.0-0.9); Mono % (Auto) 10.7 % (0.0-8.0); Neut # (Auto) 5.9 th/mm3 (1.8-7.7); Neut % (Auto) 77.4 % (16.0-70.0); Platelet Count 145 th/mm3 (150-450); Red Blood Count 2.46 mil/mm3 (4.50-5.90); White Blood Count 7.7 th/mm3 (4.0-11.0)
[2018-03-24 06:17] LABS: Hematocrit 20.9 % (39.0-51.0)
[2018-03-24 06:32] LABS: Calcium 7.7 mg/dL (8.5-10.1); Carbon Dioxide 26.2 meq/L (21.0-32.0); Magnesium 2.6 mg/dL (1.5-2.5); Potassium 4.2 meq/L (3.5-5.1)
[2018-03-24] MEDS: Polymyxin/Trimethop Opth Drops 10 ML Bottle EACH EYE SCH ×7 (06:50→21:00)
[2018-03-24] MEDS: Levothyroxine 150 MCG Tablet PO SCH (06:52)
[2018-03-24] MEDS: Insulin NovoLOG Aspart Correctional Sugar Inj SQ SCH ×4 (06:56→21:00)
--- NOTE | 2018-03-24 08:13 | P.PNCV ---
- Note Subjective/Hospital Course: 03/22 SURGICAL PROCEDURE 1. Urgent Off-pump Coronary Artery Bypass Grafting x 2 with Left Internal Mammary Artery (SANDS) to Left Anterior Descending (LAD), reverse saphenous vein graft to obtuse Marginal branch of the left Circumflex artery 2. Left leg Endoscopic Vein [place] 3. Intraoperative Vein Mapping. 03/23 Doing well postoperatively Extubated and tolerating Transfer to telemetry stepdown unit today Maintain chest tube to drainage Discharge planning 03/24 Doing well. Hemodynamic [place] and clinically stable Chest tubes continue to drain. Maintain drainage for now Ambulate Discharge planning Objective: Vital Signs - 24 hr 03/23/18 09:47 03/23/18 11:00 03/23/18 14:21 Temperature 98.2 F Pulse Rate 103 H 110 H 103 H Respiratory Rate 20 16 18 Blood Pressure 128/66 Pulse Oximetry 95 95 03/23/18 14:23 03/23/18 15:00 03/23/18 15:08 Temperature 98 F 98 F Pulse Rate 101 H 101 H Respiratory Rate 16 16 Blood Pressure 112/55 L 112/55 L Pulse Oximetry 95 95 94 L 03/23/18 19:00 03/23/18 20:00 03/23/18 21:37 Temperature 97.9 F 98.4 F Pulse Rate 97 H 88 93 H Respiratory Rate 22 20 17 Blood Pressure 130/64 119/57 L Pulse Oximetry 95 94 L 94 L 03/23/18 23:00 03/24/18 03:00 03/24/18 07:00 Temperature 97.9 F 98.4 F Pulse Rate 84 92 H 94 H Respiratory Rate 20 22 Blood Pressure 116/57 L 118/58 L Pulse Oximetry 97 95 03/24/18 07:45 Temperature Pulse Rate Respiratory Rate Blood Pressure Pulse Oximetry 92 L Labs: Laboratory Results - last 12 hr 03/23/18 03/24/18 03/24/18 23:35 05:40 05:40 WBC 7.7 RBC 2.46 L Hgb 7.0 L Hct 20.9 L* MCV 85.1 MCH 28.5 MCHC 33.5 RDW 18.0 H Plt Count 145 L MPV 6.9 L Prelim Diff (Auto) Slide review pending Neut % (Auto) 77.4 H Lymph % (Auto) 10.5 [place] % (Auto) 10.7 H Eos % (Auto) 1.2 Baso % (Auto) 0.2 Neut # (Auto) 5.9 Lymph # (Auto) 0.8 L [place] # (Auto) 0.8 Eos # (Auto) 0.1 Baso # (Auto) 0.0 WBC Differential . Diff Scan Auto diff confirmed Differential Comment . Sodium 138 Potassium 4.2 Chloride 105 Carbon Dioxide 26.2 Anion Gap 7 BUN 18 Creatinine 1.43 H Estimated GFR 48 L POC Glucose 127 H Random Glucose 107 H Calcium 7.7 L Magnesium 2.6 H Result Diagrams: 03/24/18 05:40 03/24/18 05:40
[2018-03-24] MEDS: Polyethylene Glycol 3350 17 GM Packet PO SCH (08:49)
[2018-03-24] MEDS: Docusate Sodium 100 MG Capsule PO SCH ×2 (08:49→21:06)
[2018-03-24] MEDS: Metoprolol Tartrate 25 MG Tablet PO SCH ×2 (08:49→21:06)
[2018-03-24] MEDS: amLODIPine 5 MG Tablet PO SCH (08:49)
[2018-03-24] MEDS: Multivitamin/Minerals Therapeutic Tablet PO SCH (08:49)
[2018-03-24] MEDS: Amiodarone 200 MG Tablet PO SCH ×2 (08:49→21:06)
[2018-03-24] MEDS: Timolol 0.5% Drops 5 ML Bottle LEFT EYE SCH ×2 (08:50→21:00)
[2018-03-24] MEDS: Brimonidine 0.2% Opth Drops 5 ML Bottle EACH EYE SCH ×3 (08:50→17:42)
[2018-03-24] MEDS: Sod Chloride 0.9% Inj 1,000 ML IV.CONT SCH (14:06)
[2018-03-24] MEDS: Latanoprost 0.005% Opth Drops 2.5 ML Bottle LEFT EYE SCH (21:00)
[2018-03-25] MEDS: Polymyxin/Trimethop Opth Drops 10 ML Bottle EACH EYE SCH ×9 (01:55→23:06)
[2018-03-25] MEDS: Levothyroxine 150 MCG Tablet PO SCH (06:07)
[2018-03-25] MEDS: Amiodarone 200 MG Tablet PO SCH ×2 (09:08→20:24)
[2018-03-25] MEDS: Docusate Sodium 100 MG Capsule PO SCH ×2 (09:08→20:24)
[2018-03-25] MEDS: Multivitamin/Minerals Therapeutic Tablet PO SCH (09:08)
[2018-03-25] MEDS: Metoprolol Tartrate 25 MG Tablet PO SCH ×2 (09:08→20:25)
[2018-03-25] MEDS: Polyethylene Glycol 3350 17 GM Packet PO SCH (09:09)
[2018-03-25] MEDS: amLODIPine 5 MG Tablet PO SCH (09:09)
[2018-03-25] MEDS: Insulin NovoLOG Aspart Correctional Sugar Inj SQ SCH ×4 (09:09→21:05)
[2018-03-25] MEDS: Brimonidine 0.2% Opth Drops 5 ML Bottle EACH EYE SCH ×3 (09:10→18:20)
[2018-03-25] MEDS: Timolol 0.5% Drops 5 ML Bottle LEFT EYE SCH ×2 (09:11→20:26)
[2018-03-25 12:30] LABS: Hematocrit 21.5 % (39.0-51.0); Hemoglobin 7.1 gm/dL (13.0-17.0); Mean Corpuscular HGB Conc 33.3 % (32.0-36.0); Mean Corpuscular Hemoglobin 28.5 pg (27.0-34.0); Mean Corpuscular Volume 85.7 fL (80.0-100.0); Mean Platelet Volume 6.9 fL (7.0-11.0); Platelet Count 170 th/mm3 (150-450); Red Blood Count 2.51 mil/mm3 (4.50-5.90); Red Cell Distribution Width 18.3 % (11.6-17.2); White Blood Count 8.2 th/mm3 (4.0-11.0)
[2018-03-25 12:48] LABS: Calcium 8.4 mg/dL (8.5-10.1); Carbon Dioxide 26.1 meq/L (21.0-32.0); Potassium 4.7 meq/L (3.5-5.1)
[2018-03-25] MEDS: Sod Chloride 0.9% Inj 1,000 ML IV.CONT SCH (13:57)
--- NOTE | 2018-03-25 14:29 | P.DIET ---
Nutritional Evaluation Type of nutrition evaluation: initial Nutrition screening: MDC (Diet Edu) Assessment Assessment: MDC for diet education received on 03/23. Pt s/p CABG x2 on 03/22. Patient Navigator to provide education, consult RD if complexities with diet arises. Recommendations: Consult RD if complexities with diet arises
--- NOTE | 2018-03-25 15:23 | P.PNCV ---
- Note Subjective/Hospital Course: 03/22 SURGICAL PROCEDURE 1. Urgent Off-pump Coronary Artery Bypass Grafting x 2 with Left Internal Mammary Artery (SANDS) to Left Anterior Descending (LAD), reverse saphenous vein graft to obtuse Marginal branch of the left Circumflex artery 2. Left leg Endoscopic Vein [place] 3. Intraoperative Vein Mapping. 03/23 Doing well postoperatively Extubated and tolerating Transfer to telemetry stepdown unit today Maintain chest tube to drainage Discharge planning 03/24 Doing well. Hemodynamic [place] and clinically stable Chest tubes continue to drain. Maintain drainage for now Ambulate Discharge planning 03/25 HGB 7.1 will transfuse 2 units PRBC with diuresis chest tubes dc without difficulty wean 02 as tolerated / pulm toileting Objective: Vital Signs - 24 hr 03/24/18 16:00 03/24/18 17:00 03/24/18 18:00 Temperature Pulse Rate 88 88 86 Respiratory Rate Blood Pressure Pulse Oximetry 03/24/18 19:00 03/24/18 19:21 03/24/18 20:00 Temperature 97.5 F L Pulse Rate 100 H 91 H 90 Respiratory Rate 20 18 Blood Pressure 132/61 Pulse Oximetry 95 95 03/24/18 21:00 03/24/18 22:00 03/24/18 23:00 Temperature Pulse Rate 88 88 78 Respiratory Rate Blood Pressure Pulse Oximetry 03/25/18 00:00 03/25/18 00:35 03/25/18 01:00 Temperature 98.1 F Pulse Rate 78 76 76 Respiratory Rate 20 Blood Pressure 119/57 L Pulse Oximetry 97 03/25/18 02:00 03/25/18 03:00 03/25/18 04:00 Temperature Pulse Rate 80 82 82 Respiratory Rate Blood Pressure Pulse Oximetry 03/25/18 04:50 03/25/18 05:00 03/25/18 06:00 Temperature 98.4 F Pulse Rate 92 H 87 85 Respiratory Rate 20 Blood Pressure 123/59 L Pulse Oximetry 96 03/25/18 07:00 03/25/18 08:00 03/25/18 08:27 Temperature 97.8 F Pulse Rate 90 90 91 H Respiratory Rate 20 18 Blood Pressure 148/67 H Pulse Oximetry 96 96 03/25/18 09:00 03/25/18 10:00 03/25/18 11:00 Temperature 97.4 F L Pulse Rate 88 88 76 Respiratory Rate 20 Blood Pressure 123/61 Pulse Oximetry 95 03/25/18 12:43 Temperature Pulse Rate 80 Respiratory Rate Blood Pressure Pulse Oximetry GENERAL: A& O x 3 SKIN: Warm and dry. prevena dressing to chest , incision intact to left leg HEAD: Normocephalic. EYES: No scleral icterus. No injection or drainage. NECK: Supple, trachea midline. No JVD or lymphadenopathy. CARDIOVASCULAR: Regular rate and rhythm without murmurs, gallops, or rubs. RESPIRATORY: diminished in bases, faint crackles, Breath sounds equal bilaterally. No accessory muscle use. GASTROINTESTINAL: Abdomen soft, non-tender, nondistended. MUSCULOSKELETAL: No cyanosis, or edema. BACK: Nontender without obvious deformity. No CVA tenderness. Labs: Laboratory Results - last 12 hr 03/25/18 03/25/18 03/25/18 08:23 11:59 12:16 WBC 8.2 RBC 2.51 L Hgb 7.1 L Hct 21.5 L MCV 85.7 MCH 28.5 MCHC 33.3 RDW 18.3 H Plt Count 170 MPV 6.9 L Sodium Potassium Chloride Carbon Dioxide Anion Gap BUN Creatinine Estimated GFR POC Glucose 148 H 127 H Random Glucose Calcium 03/25/18 12:16 WBC RBC Hgb Hct MCV MCH MCHC RDW Plt Count MPV Sodium 134 L Potassium 4.7 Chloride 101 Carbon Dioxide 26.1 Anion Gap 7 BUN 21 H Creatinine 1.26 Estimated GFR 55 L POC Glucose Random Glucose 106 Calcium 8.4 L Result Diagrams: 03/25/18 12:16 03/25/18 12:16 - Plan (2) Acute blood loss anemia Plan: for 2 units PRBC today on PPI diuresis in between and after second unit (3) Hyperlipidemia Plan: on statin (4) Hypertension Plan: controlled (5) S/P CABG x 2 Plan: ASA, statin , BB , amiodarone OOB ambulate pulm toileting CM to eval for HHC at discharge
--- NOTE | 2018-03-25 15:38 | P.DCO ---
- Diagnosis (1) Coronary artery disease involving left main coronary artery Status: Acute (2) Unstable angina Status: Acute (3) Acute blood loss anemia Status: Acute (4) Hyperlipidemia Status: Chronic (5) Hypertension Status: Chronic (6) S/P CABG x 2 Status: Acute (7) Hx of enucleation of right eyeball Status: Acute - Home Health Nursing Order: Medical education, Signs/symptoms of disease process, Wound care and dressing changes, Nursing assessment with vital signs Instructions: Heart and Vascular Surgery patients *Special attention to sternal dressing Mandatory frequency Assess and evaluation, 4 days in a row The next week 3X week 2 times a week for 4 weeks 1 time a week for 5 weeks Schedule Heart and Vascular patients for full 60 day certification period Initial visit Review Open Heart Surgery Discharge Instructions (Sternal precautions, Activity, Elastic hose, Incision care, Driving, Incentive spirometry, Smoking, [place], Work and other) Need Betadine to paint incision Medication reconciliation Importance of follow up care/ check on appointments Make calendar record temperature daily When to call [facility] nurse, review instructions, phone list Incentive Spirometry, demonstration Visit 1- Begin discharge instruction for patient family and/ or caregiver using teach back method- Signs and symptoms of infection Disease characteristics Medicines and side effects Foods and nutrition/ appetite Infection control/ hand washing/ hygiene Visit 2- Continue teaching Discharge instructions- include additional information on smoking cessation , sternal dressing (sternal vac) Visit 3- Continue teaching- Cough and deep breathing, incision monitoring. Choose my plate Visit 4- Continue teaching- Discuss limitations Discuss how they are feeling Discuss progress toward goals Remaining visits- continue teaching and monitoring For any questions please call : Sunday 8am-5pm Heart & Vascular Surgery Office ( Dr. Hernandez & Dr. Peralta), After Hours / Nights (5pm -8am) Weekends and Holidays Please call [facility] ([facility]) Charge Nurse PREVENA Single Use Negative Wound Therapy System Caregiver Instruction Sheet 1. A Prevena dressing system was applied to the chest incision during surgery , to promote wound healing. It works via a suction device (negative pressure wound therapy) to remove low to moderate levels of exudate (drainage) and infectious materials. We recommend that the device stay in place for up to seven days, from day of surgery. 2. Day of Surgery___11/9/18 Day of Removal ___03/29/18 3. The dressing should only be removed by a health companion caregiver. Please arrange removal of device to coincide with Home Health visit and or with Nursing staff at Rehab 4. If skin reddening or irritation of skin occurs, or excessive drainage, please notify the Cardiovascular Surgeons office at [phone]. 5. Light showering is permissible; however the pump should be disconnected and placed in safe location, where it will not get wet. The dressing should not be exposed to direct spray or submerged in water. No bath tub / shower only. Ensure the end of the tubing attached to the dressing is facing down so that water does not enter the top of the tube. 6. To remove Prevena dressing: press purple button to turn off device / remove the suction. Then disconnect the tubing from the pump. The fixation strips should be stretched away from the skin and the dressing lifted at one corner and peeled back until it has been fully removed. 7. After removal, it is ok to shower daily using liquid dial soap and clean wash cloth, rinse and pat dry, and leave incision open to air dry. For any concerns regarding Prevena dressing, and or wounds, please contact Funmilayo Joel, patient navigator at [phone] or notify the Cardiovascular Surgeons office at [phone]. Incentive spirometry Q1 hr x 10, while awake, also use acapella device hourly whole awake Sternal Breast Bone Precautions: NO pushing or pulling, ( pt must use sternal pillow to support chest with all activities and with coughing ( takes up to 3 months breast bone to heal ) Daily incision care: ok to shower daily, no tub bath. Wash all incisions with liquid dial soap, clean wash cloth to each site, rinse and pat dry. Observe for any signs of infection, such as drainage which is dark yellow, sneed, green or foul smelling. Immediately report to the surgeon any drainage from the chest incision, or legs, and for any abnormal drainage from the chest tube sites. Notify surgeon if any temp >101.5 degrees F. When specialty dressing removed/ or if you do not have one, continue to shower daily as above, then rinse and pat incision dry and paint with betadine daily x 5 days. Allow steri strips to fall off if you have any. Avoid lotions, creams, salves, oils, etc. for the first month Please see attached forms for additional instructions regarding post Open Heart specialty wound vacuum dressings. JARON or Prevena , Dressing to be removed by Nursing staff on __03/29/18 F/U appointment: as per DC instructions: PCP in 2 weeks, CV surgeon 2 weeks, Staffing Manager 3-4 weeks For any questions regarding incisions/ dressing / meds / post op care or above Symptoms, Sunday 8am-5pm Heart & Vascular Surgery Office ( Dr. Hernandez & Dr. Peralta), After Hours / Nights (5pm -8am) Weekends and Holidays Please call [facility] ([facility]) Charge Nurse - Case Management Consult Yes - Certification I have seen patient Devyn Lambert on 03/25/18. My clinical findings support the need for the requested home health care services because: Deconditioned with increased weakness I certify that my clinical findings support that this patient is homebound because: Post-op weakness
[2018-03-25] MEDS: Latanoprost 0.005% Opth Drops 2.5 ML Bottle LEFT EYE SCH (20:26)
--- NOTE | 2018-03-25 22:12 | P.PNCA ---
Subjective Interval history: s/p CABGx2 Doing well Up and ambulating with PT Chest tubes out Medications and Allergies Active Medications: Active Medications Hydrocodone Bitart/Acetaminophen ([place] 5/325) 1 tab PO Q3H PRN PRN Reason: PAIN SCALE 1 TO 5 Last Admin: 03/25/18 18:37 Dose: 1 tab Al Hydroxide/Mg Hydroxide (Milk Of Magndonna Liq) 30 ml PO DAILY [facility] Last Admin: 03/25/18 09:09 Dose: 30 ml Albuterol (Duoneb Neb (Prn)) 1 ampul NEB Q2HR NEB PRN PRN Reason: WHEEZING Last Admin: 03/23/18 06:08 Dose: 1 ampul Albuterol (Duoneb Neb (Anupama)) 1 ampul NEB Q6HR NEB [facility] Last Admin: 03/25/18 19:49 Dose: 1 ampul Amiodarone HCl (Cordarone) 200 mg PO Q12HR [facility] Last Admin: 03/25/18 20:24 Dose: 200 mg Amlodipine Besylate (Norvasc) 5 mg PO DAILY [facility] Last Admin: 03/25/18 09:09 Dose: 5 mg Aspirin (Aspirin Chew) 81 mg PO DAILY [facility] Last Admin: 03/25/18 09:08 Dose: 81 mg Atorvastatin Calcium (Lipitor) 40 mg PO HS [facility] Last Admin: 03/25/18 20:25 Dose: 40 mg Bisacodyl (Dulcolax Supp) 10 mg RECTAL PRN PRN PRN Reason: SEE LABEL COMMENTS Brimonidine Tartrate (Alphagan 0.2% Opth Drops) 1 drops EACH EYE TID [facility] Last Admin: 03/25/18 18:20 Dose: 1 drops Clopidogrel Bisulfate (Plavix) 75 mg PO DAILY [facility] Last Admin: 03/25/18 09:08 Dose: 75 mg Sodium Chloride 77.5 ml/Papaverine HCl 60 mg/Nitroglycerin 100 mcg/Diltiazem HCl 100 mg 0 ml IRRIGATION DATASTAGE CONSULTANT [facility] Stop: 03/27/18 22:21 Sodium Chloride 500 ml/ (Cefazolin Sodium 500 mg) 0 ml IRRIGATION DATASTAGE CONSULTANT [facility] Stop: 03/27/18 22:22 Dextrose (D50w Vial) 50 ml IV.PUSH UNSCH PRN PRN Reason: PER HYPOGLYCEMIA PROTOCOL Docusate Sodium (Colace) 100 mg PO BID [facility] Last Admin: 03/25/18 20:24 Dose: Not Given Glucagon (Glucagon Inj) 1 mg OTHER PRN PRN PRN Reason: for Hypoglycemia Protocol Sodium Chloride (Ns Inj) 1,000 mls @ 30 mls/hr IV.CONT .Q24H [facility] Last Admin: 03/25/18 13:57 Dose: Not Given Sodium Chloride (Ns Inj) 500 mls @ 30 mls/hr IV.SIG .Q10H [facility] Last Admin: 03/22/18 08:14 Dose: Not Given Insulin Aspart (Novolog Insulin Correctional Sugar Inj) 0 unit SQ ACHS [facility]; Protocol Last Admin: 03/25/18 21:05 Dose: Not Given Latanoprost (Xalatan 0.005% Opth Drops) 1 drop LEFT EYE [facility] Last Admin: 03/25/18 20:26 Dose: 1 drop Levothyroxine Sodium (Synthroid) 150 mcg PO DAILY@0600 [facility] Last Admin: 03/25/18 06:07 Dose: 150 mcg Lorazepam (Ativan) 0.5 mg PO BID PRN PRN Reason: Anxiety Last Admin: 03/22/18 03:36 Dose: 0.5 mg Metoprolol Tartrate (Lopressor) 25 mg PO BID [facility] Last Admin: 03/25/18 20:25 Dose: 25 mg Multivitamins/Minerals (Theragran-M) 1 tab PO DAILY [facility] Last Admin: 03/25/18 09:08 Dose: 1 tab Ondansetron HCl (Zofran Inj) 4 mg IV.PUSH Q6H PRN PRN Reason: NAUSEA OR VOMITING Last Admin: 03/22/18 21:22 Dose: 4 mg Pantoprazole Sodium (Protonix) 40 mg PO DAILY@06 [facility] Last Admin: 03/25/18 06:07 Dose: 40 mg Polyethylene Glycol (Miralax) 17 gm PO DAILY [facility] Last Admin: 03/25/18 09:09 Dose: 17 gm Polymyxin/Trimethoprim Sulfate (Polytrim Opth Drops) 1 drop EACH EYE Q3H [facility] Last Admin: 03/25/18 20:26 Dose: 1 drop Sennosides (Senokot) 8.6 mg PO HS [facility] Last Admin: 03/25/18 20:26 Dose: Not Given Sodium Biphosphate/Sodium Phosphate (Fleets Enema (Adult)) 118 ml RECTAL UNSCH PRN PRN Reason: SEE LABEL COMMENTS Sodium Chloride (Ns Flush) 2 ml IV.FLUSH BID [facility] Last Admin: 03/25/18 21:04 Dose: 2 ml Sodium Chloride (Ns Flush) 2 ml IV.FLUSH PRN PRN PRN Reason: FLUSH AFTER USING IV ACCESS Timolol Maleate (Timoptic 0.5% Drops) 1 drops LEFT EYE BID [facility] Last Admin: 03/25/18 20:26 Dose: 1 drops Allergies Allergy/AdvReac Type Severity Reaction Status Date / Time No Known Allergies Allergy Verified 03/20/18 12:49 Home Medications Medication Instructions Recorded Confirmed Type alendronate 70 mg PO QWEEK 03/20/18 03/20/18 History amlodipine 5 mg PO DAILY 03/20/18 03/20/18 History brimonidine 1 drp OPHTHALMIC (EYE) TID 03/20/18 03/20/18 History glipizide 5 mg PO DAILY 03/20/18 03/20/18 History latanoprost 1 drp OPHTHALMIC (EYE) QPM 03/20/18 03/20/18 History levothyroxine 150 mcg PO DAILY 03/20/18 03/20/18 History lorazepam 1 tab PO BID PRN 03/20/18 03/20/18 History lovastatin 40 mg PO DAILY 03/20/18 03/20/18 History metformin 500 mg PO BID 03/20/18 03/20/18 History metoprolol tartrate 50 mg PO BID 03/20/18 03/20/18 History omega-3 fatty acids-fish oil [Fish 1 cap PO DAILY 03/20/18 03/20/18 History Oil] polymyxin B sulf-trimethoprim 1 drp OPHTHALMIC (EYE) Q3H 03/20/18 03/20/18 History Physical Exam Vital signs: Vital Signs 03/24/18 23:00 03/25/18 00:00 03/25/18 00:35 Temperature 98.1 F Pulse Rate 78 78 76 Respiratory Rate 20 Blood Pressure 119/57 L Pulse Oximetry 97 03/25/18 01:00 03/25/18 02:00 03/25/18 03:00 Temperature Pulse Rate 76 80 82 Respiratory Rate Blood Pressure Pulse Oximetry 03/25/18 04:00 03/25/18 04:50 03/25/18 05:00 Temperature 98.4 F Pulse Rate 82 92 H 87 Respiratory Rate 20 Blood Pressure 123/59 L Pulse Oximetry 96 03/25/18 06:00 03/25/18 07:00 03/25/18 08:00 Temperature 97.8 F Pulse Rate 85 90 90 Respiratory Rate 20 Blood Pressure 148/67 H Pulse Oximetry 96 03/25/18 08:27 03/25/18 09:00 03/25/18 10:00 Temperature Pulse Rate 91 H 88 88 Respiratory Rate 18 Blood Pressure Pulse Oximetry 96 03/25/18 11:00 03/25/18 12:43 03/25/18 13:00 Temperature 97.4 F L Pulse Rate 76 80 78 Respiratory Rate 20 Blood Pressure 123/61 Pulse Oximetry 95 03/25/18 14:00 03/25/18 15:00 03/25/18 16:00 Temperature 98.1 F Pulse Rate 86 85 88 Respiratory Rate 20 Blood Pressure 135/60 Pulse Oximetry 92 L 03/25/18 17:00 03/25/18 18:00 03/25/18 18:03 Temperature 97.6 F Pulse Rate 86 95 H 95 H Respiratory Rate 16 Blood Pressure 153/68 H Pulse Oximetry 94 L 03/25/18 18:17 03/25/18 18:31 03/25/18 19:00 Temperature 97.8 F 98.1 F 98.6 F Pulse Rate 96 H 92 H 85 Respiratory Rate 16 16 18 Blood Pressure 153/68 H 149/66 H 122/59 L Pulse Oximetry 95 94 L 95 03/25/18 19:52 03/25/18 21:23 03/25/18 21:29 Temperature 97.8 F 97.8 F Pulse Rate 82 78 78 Respiratory Rate 16 16 16 Blood Pressure 123/59 L 123/59 L Pulse Oximetry 95 95 95 03/25/18 21:45 Temperature 98.7 F Pulse Rate 77 Respiratory Rate 18 Blood Pressure 121/59 L Pulse Oximetry 95 Intake & Output 03/25/18 03/25/18 03/26/18 06:59 18:59 06:59 Intake Total 420 / 420 720 / 720 400 / 400 Output Total 460 / 460 350 / 350 Balance -40 / -40 370 / 370 400 / 400 Weight 92 kg Intake: Oral 420 / 420 720 / 720 Other 0 / 0 Rbc As-3 Leukoreduced Unit 0 / 0 [id number] Intake (Blood Product) Amt 0 / 0 400 / 400 Rbc As-3 Leukoreduced Unit 0 / 0 [id number] Rbc As-3 Leukoreduced Unit 0 / 0 400 / 400 [id number] Output: Urine 400 / 400 350 / 350 Chest Tube Drainage 60 / 60 #1Y and #2Y Pleural/Mediastinal 60 / 60 Y Connected Other: # Bowel Movements 0 Narrative: GENERAL: NAD, AAOx3 SKIN: Warm and dry. HEAD: Atraumatic. Normocephalic. EYES: Pupils equal and round. No scleral icterus. No injection or drainage. ENT: No nasal bleeding or discharge. Mucous membranes pink and moist. NECK: Trachea midline. No JVD. CARDIOVASCULAR: Regular rate and rhythm. Sternotomy c/d/i RESPIRATORY: No accessory muscle use. Clear to auscultation. Breath sounds equal bilaterally. GASTROINTESTINAL: Abdomen soft, non-tender, nondistended. Hepatic and splenic margins not palpable. MUSCULOSKELETAL: Extremities without clubbing, cyanosis, or edema. No obvious deformities. NEUROLOGICAL: Awake and alert. No obvious cranial nerve deficits. Motor grossly within normal limits. Five out of 5 muscle strength in the arms and legs. Normal speech. PSYCHIATRIC: Appropriate mood and affect; insight and judgment normal. - Urinary Catheter Management Indwelling Temp Sensing Catheter Cath placed during this visit: yes, but has since been removed by the nurse Reason for continuing: Decision to DC catheter Insertion date: 03/22/18 Insertion time: 14:21 Removal date: 03/23/18 Removal time: 06:00 Results 03/25/18 12:16 03/25/18 12:16 CBC 03/24/18 03/25/18 Range/Units 05:40 12:16 WBC 7.7 8.2 (4.0-11.0) th/mm3 RBC 2.46 L 2.51 L (4.50-5.90) mil/mm3 Hgb 7.0 L 7.1 L (13.0-17.0) gm/dL Hct 20.9 L* 21.5 L (39.0-51.0) % Plt Count 145 L 170 (150-450) th/mm3 Neut # (Auto) 5.9 (1.8-7.7) th/mm3 Lymph # (Auto) 0.8 L (1.0-4.8) th/mm3 [place] # (Auto) 0.8 (0.0-0.9) th/mm3 Eos # (Auto) 0.1 (0.0-0.4) th/mm3 Baso # (Auto) 0.0 (0.0-0.2) th/mm3 Comprehensive Metabolic Panel 03/24/18 03/25/18 Range/Units 05:40 12:16 Sodium 138 134 L (136-145) meq/L Potassium 4.2 4.7 (3.5-5.1) meq/L Chloride 105 101 (98-107) meq/L Carbon Dioxide 26.2 26.1 (21.0-32.0) meq/L BUN 18 21 H (7-18) mg/dL Creatinine 1.43 H 1.26 (0.60-1.30) mg/dL Calcium 7.7 L 8.4 L (8.5-10.1) mg/dL Intake and Output 03/25/18 03/25/18 03/25/18 06:59 14:59 22:59 Intake Total 420 / 420 1120 / 1120 Output Total 460 / 460 350 / 350 Balance -40 / -40 770 / 770 Intake: Oral 420 / 420 720 / 720 Other 0 / 0 Rbc As-3 Leukoreduced Unit 0 / 0 [id number] Intake (Blood Product) Amt 400 / 400 Rbc As-3 Leukoreduced Unit 0 / 0 [id number] Rbc As-3 Leukoreduced Unit 400 / 400 [id number] Output: Urine 400 / 400 350 / 350 Chest Tube Drainage 60 / 60 #1Y and #2Y Pleural/Mediastinal 60 / 60 Y Connected Other: # Bowel Movements 0 Weight 92 kg Assessment and Plan - Assessment (1) Unstable angina Code(s): I20.0 - Unstable angina Status: Acute (2) Coronary artery disease involving left main coronary artery Code(s): I25.10 - Atherosclerotic heart disease of [place] coronary artery without angina pectoris Status: Acute - Plan 1) CAD/[place] s/p CABGx2 SANDS to LAD SVG to OM 2) Echo (12/2017) EF 55-60%, stage 1 DD, mild MR, trace AR 3) Con't PT 4) Possible home with home health service
[2018-03-26] MEDS: Polymyxin/Trimethop Opth Drops 10 ML Bottle EACH EYE SCH ×7 (03:45→20:28)
[2018-03-26 05:11] LABS: Hematocrit 25.9 % (39.0-51.0); Hemoglobin 8.8 gm/dL (13.0-17.0); Mean Corpuscular HGB Conc 33.9 % (32.0-36.0); Mean Corpuscular Volume 85.8 fL (80.0-100.0); Mean Platelet Volume 6.8 fL (7.0-11.0); Platelet Count 187 th/mm3 (150-450); Red Blood Count 3.02 mil/mm3 (4.50-5.90); Red Cell Distribution Width 16.9 % (11.6-17.2); White Blood Count 8.4 th/mm3 (4.0-11.0)
[2018-03-26 05:37] LABS: Calcium 7.8 mg/dL (8.5-10.1); Carbon Dioxide 27.6 meq/L (21.0-32.0); Potassium 4.2 meq/L (3.5-5.1)
[2018-03-26] MEDS: Levothyroxine 150 MCG Tablet PO SCH (05:43)
--- NOTE | 2018-03-26 05:58 | XR ---
EXAM DATE: 03/26/2018 5:32 AM EST AGE/SEX: 77 years / Male INDICATIONS: Short of breath. CLINICAL DATA: This is the patient's subsequent encounter. Patient reports that signs and symptoms h ave been present for 4 - 6 days and indicates a pain score of 0/10. MEDICAL/SURGICAL HISTORY: Carcinoma, prostatic. Hypertension. CABG. COMPARISON: [facility], CHEST 1V SINGLE AP, 03/23/2018. . FINDINGS: A single AP portable semierect view of the chest was obtained and demonstrates interval removal of pr eviously noted right internal jugular central venous line and left-sided chest tube. The mediastinal chest tube has been removed as well. There is no pneumothorax. There is patchy opacity remaining in t he left lung base with partial obscuration of the left hemidiaphragm. The heart size is at the upper limits of normal with no perihilar edema. There is slight blunting of left costophrenic angle. The ave ny thorax is otherwise intact with an old healed right midclavicular fracture again noted. CONCLUSION: 1. Interval removal left-sided chest tube and mediastinal chest tube with no pneumothorax. 2. Interval removal of right-sided central venous line. 3. Abnormal opacity remains in the the left lung base with mild air bronchograms. There is an appare nt small left effusion. This is not significantly changed. Electronically signed by: Jani Carmona MD 03/26/2018 5:56 AM EST
[2018-03-26] MEDS: Metoprolol Tartrate 25 MG Tablet PO SCH ×2 (08:49→20:22)
[2018-03-26] MEDS: Amiodarone 200 MG Tablet PO SCH ×2 (08:50→20:22)
[2018-03-26] MEDS: Multivitamin/Minerals Therapeutic Tablet PO SCH (08:50)
[2018-03-26] MEDS: Docusate Sodium 100 MG Capsule PO SCH ×2 (08:50→20:22)
[2018-03-26] MEDS: amLODIPine 5 MG Tablet PO SCH (08:50)
[2018-03-26] MEDS: Brimonidine 0.2% Opth Drops 5 ML Bottle EACH EYE SCH ×3 (08:51→17:03)
[2018-03-26] MEDS: Polyethylene Glycol 3350 17 GM Packet PO SCH (08:51)
[2018-03-26] MEDS: Timolol 0.5% Drops 5 ML Bottle LEFT EYE SCH ×2 (08:51→20:29)
[2018-03-26] MEDS: Insulin NovoLOG Aspart Correctional Sugar Inj SQ SCH ×4 (08:53→20:28)
[2018-03-26] MEDS: Ferrous Sulfate 325 MG Tablet PO SCH ×2 (11:45→16:44)
[2018-03-26] MEDS: Sod Chloride 0.9% Inj 1,000 ML IV.CONT SCH (13:13)
--- NOTE | 2018-03-26 16:04 | P.PNCV ---
- Note Subjective/Hospital Course: 03/22 SURGICAL PROCEDURE 1. Urgent Off-pump Coronary Artery Bypass Grafting x 2 with Left Internal Mammary Artery (SANDS) to Left Anterior Descending (LAD), reverse saphenous vein graft to obtuse Marginal branch of the left Circumflex artery 2. Left leg Endoscopic Vein [place] Pool 3. Intraoperative Vein Mapping. 03/23 Doing well postoperatively Extubated and tolerating Transfer to telemetry stepdown unit today Maintain chest tube to drainage Discharge planning 03/24 Doing well. Hemodynamic [place] and clinically stable Chest tubes continue to drain. Maintain drainage for now Ambulate Discharge planning 03/25 HGB 7.1 will transfuse 2 units PRBC with diuresis chest tubes dc without difficulty wean 02 as tolerated / pulm toileting 03/26 HGB 8.8 post 2 units PRBC will diuresis today wean 02 home tomorrow/ may need home walk test Objective: Vital Signs - 24 hr 03/25/18 17:00 03/25/18 18:00 03/25/18 18:03 Temperature 97.6 F Pulse Rate 86 95 H 95 H Respiratory Rate 16 Blood Pressure 153/68 H Pulse Oximetry 94 L 03/25/18 18:17 03/25/18 18:31 03/25/18 19:00 Temperature 97.8 F 98.1 F 98.6 F Pulse Rate 96 H 92 H 99 H Respiratory Rate 16 16 18 Blood Pressure 153/68 H 149/66 H 122/59 L Pulse Oximetry 95 94 L 95 03/25/18 19:52 03/25/18 20:00 03/25/18 21:00 Temperature Pulse Rate 82 82 82 Respiratory Rate 16 Blood Pressure Pulse Oximetry 95 95 03/25/18 21:23 03/25/18 21:29 03/25/18 21:45 Temperature 97.8 F 97.8 F 98.7 F Pulse Rate 78 78 77 Respiratory Rate 16 16 18 Blood Pressure 123/59 L 123/59 L 121/59 L Pulse Oximetry 95 95 95 03/25/18 22:00 03/25/18 23:00 03/26/18 00:00 Temperature 97.5 F L Pulse Rate 78 92 H 92 H Respiratory Rate 18 Blood Pressure 123/60 Pulse Oximetry 93 L 03/26/18 01:00 03/26/18 01:40 03/26/18 02:00 Temperature 97.8 F Pulse Rate 84 90 94 H Respiratory Rate 18 Blood Pressure 139/60 Pulse Oximetry 92 L 03/26/18 03:00 03/26/18 03:50 03/26/18 04:00 Temperature 98.4 F Pulse Rate 89 92 H 90 Respiratory Rate 18 18 Blood Pressure 147/67 H Pulse Oximetry 95 03/26/18 05:00 03/26/18 06:00 03/26/18 07:00 Temperature 98.3 F Pulse Rate 88 88 84 Respiratory Rate 16 Blood Pressure 144/64 H Pulse Oximetry 96 03/26/18 08:00 03/26/18 09:00 03/26/18 10:00 Temperature Pulse Rate 88 96 H 78 Respiratory Rate Blood Pressure Pulse Oximetry 96 03/26/18 10:17 03/26/18 11:00 03/26/18 12:00 Temperature 97.8 F Pulse Rate 77 82 86 Respiratory Rate 16 16 Blood Pressure 117/56 L Pulse Oximetry 95 96 03/26/18 15:00 03/26/18 15:46 Temperature 97.6 F Pulse Rate 88 95 H Respiratory Rate 20 16 Blood Pressure 158/72 H Pulse Oximetry 95 GENERAL: A&O x 3 SKIN: Warm and dry. prevena dressing to ches t HEAD: Normocephalic. EYES: No scleral icterus. No injection or drainage. NECK: Supple, trachea midline. No JVD or lymphadenopathy. CARDIOVASCULAR: Regular rate and rhythm without murmurs, gallops, or rubs. RESPIRATORY: Breath sounds equal bilaterally. No accessory muscle use. few crackles in bases GASTROINTESTINAL: Abdomen soft, non-tender, nondistended. MUSCULOSKELETAL: No cyanosis, or edema. BACK: Nontender without obvious deformity. No CVA tenderness. Labs: Laboratory Results - last 12 hr 03/26/18 03/26/18 03/26/18 04:43 04:43 07:37 WBC 8.4 RBC 3.02 L Hgb 8.8 L Hct 25.9 L MCV 85.8 MCH 29.0 MCHC 33.9 RDW 16.9 Plt Count 187 MPV 6.8 L Sodium 136 Potassium 4.2 Chloride 101 Carbon Dioxide 27.6 Anion Gap 7 BUN 22 H Creatinine 1.20 Estimated GFR 59 L POC Glucose 114 H Random Glucose 100 Calcium 7.8 L 03/26/18 11:42 WBC RBC Hgb Hct MCV MCH MCHC RDW Plt Count MPV Sodium Potassium Chloride Carbon Dioxide Anion Gap BUN Creatinine Estimated GFR POC Glucose 150 H Random Glucose Calcium Result Diagrams: 03/26/18 04:43 03/26/18 04:43 Telemetry: NSR - Plan (3) Acute blood loss anemia Plan: s/p 2 units PRBC on PPI HGB 8.8 start ferrous sulfate (4) Hyperlipidemia Plan: on statin (5) Hypertension Plan: controlled (6) S/P CABG x 2 Plan: ASA, statin , BB , amiodarone OOB ambulate pulm toileting CM to eval for HHC at discharge
[2018-03-26] MEDS: Latanoprost 0.005% Opth Drops 2.5 ML Bottle LEFT EYE SCH (20:29)
--- NOTE | 2018-03-26 22:40 | P.PNCA ---
Subjective Interval history: Doing alright Not comfortable sleeping Medications and Allergies Active Medications: Active Medications Hydrocodone Bitart/Acetaminophen ([place] 5/325) 1 tab PO Q3H PRN PRN Reason: PAIN SCALE 1 TO 5 Last Admin: 03/26/18 14:14 Dose: 1 tab Al Hydroxide/Mg Hydroxide (Milk Of Magndonna Liq) 30 ml PO DAILY [facility] Last Admin: 03/26/18 08:51 Dose: 30 ml Albuterol (Duoneb Neb (Prn)) 1 ampul NEB Q2HR NEB PRN PRN Reason: WHEEZING Last Admin: 03/23/18 06:08 Dose: 1 ampul Amiodarone HCl (Cordarone) 200 mg PO Q12HR [facility] Last Admin: 03/26/18 20:22 Dose: 200 mg Amlodipine Besylate (Norvasc) 5 mg PO DAILY [facility] Last Admin: 03/26/18 08:50 Dose: 5 mg Aspirin (Aspirin Chew) 81 mg PO DAILY [facility] Last Admin: 03/26/18 08:50 Dose: 81 mg Atorvastatin Calcium (Lipitor) 40 mg PO HS [facility] Last Admin: 03/26/18 20:22 Dose: 40 mg Bisacodyl (Dulcolax Supp) 10 mg RECTAL PRN PRN PRN Reason: SEE LABEL COMMENTS Brimonidine Tartrate (Alphagan 0.2% Opth Drops) 1 drops EACH EYE TID [facility] Last Admin: 03/26/18 17:03 Dose: 1 drops Clopidogrel Bisulfate (Plavix) 75 mg PO DAILY [facility] Last Admin: 03/26/18 08:50 Dose: 75 mg Dextrose (D50w Vial) 50 ml IV.PUSH UNSCH PRN PRN Reason: PER HYPOGLYCEMIA PROTOCOL Docusate Sodium (Colace) 100 mg PO BID [facility] Last Admin: 03/26/18 20:22 Dose: Not Given Ferrous Sulfate (Ferosul) 325 mg PO BID@1200,1700 [facility] Last Admin: 03/26/18 16:44 Dose: 325 mg Glucagon (Glucagon Inj) 1 mg OTHER PRN PRN PRN Reason: for Hypoglycemia Protocol Sodium Chloride (Ns Inj) 1,000 mls @ 30 mls/hr IV.CONT .Q24H [facility] Last Admin: 03/26/18 13:13 Dose: Not Given Insulin Aspart (Novolog Insulin Correctional Sugar Inj) 0 unit SQ ACHS [facility]; Protocol Last Admin: 03/26/18 20:28 Dose: 4 unit Latanoprost (Xalatan 0.005% Opth Drops) 1 drop LEFT EYE HS [facility] Last Admin: 03/26/18 20:29 Dose: 1 drop Levothyroxine Sodium (Synthroid) 150 mcg PO DAILY@0600 [facility] Last Admin: 03/26/18 05:43 Dose: 150 mcg Metoprolol Tartrate (Lopressor) 50 mg PO BID [facility] Last Admin: 03/26/18 20:22 Dose: 50 mg Multivitamins/Minerals (Theragran-M) 1 tab PO DAILY [facility] Last Admin: 03/26/18 08:50 Dose: 1 tab Ondansetron HCl (Zofran Inj) 4 mg IV.PUSH Q6H PRN PRN Reason: NAUSEA OR VOMITING Last Admin: 03/22/18 21:22 Dose: 4 mg Pantoprazole Sodium (Protonix) 40 mg PO DAILY@06 [facility] Last Admin: 03/26/18 05:43 Dose: 40 mg Polyethylene Glycol (Miralax) 17 gm PO DAILY [facility] Last Admin: 03/26/18 08:51 Dose: 17 gm Polymyxin/Trimethoprim Sulfate (Polytrim Opth Drops) 1 drop EACH EYE Q3H [facility] Last Admin: 03/26/18 20:28 Dose: 1 drop Sennosides (Senokot) 8.6 mg PO HS [facility] Last Admin: 03/26/18 20:29 Dose: Not Given Sodium Biphosphate/Sodium Phosphate (Fleets Enema (Adult)) 118 ml RECTAL UNSCH PRN PRN Reason: SEE LABEL COMMENTS Sodium Chloride (Ns Flush) 2 ml IV.FLUSH BID [facility] Last Admin: 03/26/18 20:28 Dose: 2 ml Sodium Chloride (Ns Flush) 2 ml IV.FLUSH PRN PRN PRN Reason: FLUSH AFTER USING IV ACCESS Timolol Maleate (Timoptic 0.5% Drops) 1 drops LEFT EYE BID [facility] Last Admin: 03/26/18 20:29 Dose: 1 drops Allergies Allergy/AdvReac Type Severity Reaction Status Date / Time No Known Allergies Allergy Verified 03/20/18 12:49 Home Medications Medication Instructions Recorded Confirmed Type alendronate 70 mg PO QWEEK 03/20/18 03/20/18 History amlodipine 5 mg PO DAILY 03/20/18 03/20/18 History brimonidine 1 drp OPHTHALMIC (EYE) TID 03/20/18 03/20/18 History glipizide 5 mg PO DAILY 03/20/18 03/20/18 History latanoprost 1 drp OPHTHALMIC (EYE) QPM 03/20/18 03/20/18 History levothyroxine 150 mcg PO DAILY 03/20/18 03/20/18 History lorazepam 1 tab PO BID PRN 03/20/18 03/20/18 History lovastatin 40 mg PO DAILY 03/20/18 03/20/18 History metformin 500 mg PO BID 03/20/18 03/20/18 History metoprolol tartrate 50 mg PO BID 03/20/18 03/20/18 History omega-3 fatty acids-fish oil [Fish 1 cap PO DAILY 03/20/18 03/20/18 History Oil] polymyxin B sulf-trimethoprim 1 drp OPHTHALMIC (EYE) Q3H 03/20/18 03/20/18 History Physical Exam Vital signs: Vital Signs 03/25/18 23:00 03/26/18 00:00 03/26/18 01:00 Temperature 97.5 F L Pulse Rate 92 H 92 H 84 Respiratory Rate 18 Blood Pressure 123/60 Pulse Oximetry 93 L 03/26/18 01:40 03/26/18 02:00 03/26/18 03:00 Temperature 97.8 F 98.4 F Pulse Rate 90 94 H 89 Respiratory Rate 18 18 Blood Pressure 139/60 147/67 H Pulse Oximetry 92 L 95 03/26/18 03:50 03/26/18 04:00 03/26/18 05:00 Temperature Pulse Rate 92 H 90 88 Respiratory Rate 18 Blood Pressure Pulse Oximetry 03/26/18 06:00 03/26/18 07:00 03/26/18 08:00 Temperature 98.3 F Pulse Rate 88 84 88 Respiratory Rate 16 Blood Pressure 144/64 H Pulse Oximetry 96 96 03/26/18 09:00 03/26/18 10:00 03/26/18 10:17 Temperature Pulse Rate 96 H 78 77 Respiratory Rate 16 Blood Pressure Pulse Oximetry 95 03/26/18 11:00 03/26/18 12:00 03/26/18 13:00 Temperature 97.8 F Pulse Rate 82 86 86 Respiratory Rate 16 Blood Pressure 117/56 L Pulse Oximetry 96 03/26/18 14:00 03/26/18 15:00 03/26/18 15:46 Temperature 97.6 F Pulse Rate 90 81 95 H Respiratory Rate 20 16 Blood Pressure 158/72 H Pulse Oximetry 95 03/26/18 16:00 03/26/18 17:00 03/26/18 18:00 Temperature Pulse Rate 90 103 H 91 H Respiratory Rate Blood Pressure Pulse Oximetry 03/26/18 20:45 Temperature Pulse Rate 97 H Respiratory Rate 18 Blood Pressure Pulse Oximetry 94 L Intake & Output 03/26/18 03/26/18 03/27/18 06:59 18:59 06:59 Intake Total 1040 / 1040 720 / 720 Output Total 700 / 700 Balance 340 / 340 720 / 720 Weight 93.5 kg Intake: Oral 240 / 240 720 / 720 Other 400 / 400 Rbc As-3 Leukoreduced Unit 400 / 400 [id number] Rbc As-3 Leukoreduced Unit 0 / 0 [id number] Intake (Blood Product) Amt 400 / 400 Rbc As-3 Leukoreduced Unit 0 / 0 [id number] Rbc As-3 Leukoreduced Unit 400 / 400 [id number] Output: Urine 700 / 700 Other: # Voids 5 Date of Last Bowel Movement 03/26/18 03/26/18 # Bowel Movements 1 Narrative: GENERAL: NAD, AAOx3 SKIN: Warm and dry. HEAD: Atraumatic. Normocephalic. EYES: Pupils equal and round. No scleral icterus. No injection or drainage. ENT: No nasal bleeding or discharge. Mucous membranes pink and moist. NECK: Trachea midline. No JVD. CARDIOVASCULAR: Regular rate and rhythm. Sternotomy c/d/i RESPIRATORY: No accessory muscle use. Clear to auscultation. Breath sounds equal bilaterally. GASTROINTESTINAL: Abdomen soft, non-tender, nondistended. Hepatic and splenic margins not palpable. MUSCULOSKELETAL: Extremities without clubbing, cyanosis, or edema. No obvious deformities. NEUROLOGICAL: Awake and alert. No obvious cranial nerve deficits. Motor grossly within normal limits. Five out of 5 muscle strength in the arms and legs. Normal speech. PSYCHIATRIC: Appropriate mood and affect; insight and judgment normal. - Urinary Catheter Management Indwelling Temp Sensing Catheter Cath placed during this visit: yes, but has since been removed by the nurse Reason for continuing: Decision to DC catheter Insertion date: 03/22/18 Insertion time: 14:21 Removal date: 03/23/18 Removal time: 06:00 Results 03/26/18 04:43 03/26/18 04:43 CBC 03/25/18 03/26/18 Range/Units 12:16 04:43 WBC 8.2 8.4 (4.0-11.0) th/mm3 RBC 2.51 L 3.02 L (4.50-5.90) mil/mm3 Hgb 7.1 L 8.8 L (13.0-17.0) gm/dL Hct 21.5 L 25.9 L (39.0-51.0) % Plt Count 170 187 (150-450) th/mm3 Comprehensive Metabolic Panel 03/25/18 03/26/18 Range/Units 12:16 04:43 Sodium 134 L 136 (136-145) meq/L Potassium 4.7 4.2 (3.5-5.1) meq/L Chloride 101 101 (98-107) meq/L Carbon Dioxide 26.1 27.6 (21.0-32.0) meq/L BUN 21 H 22 H (7-18) mg/dL Creatinine 1.26 1.20 (0.60-1.30) mg/dL Calcium 8.4 L 7.8 L (8.5-10.1) mg/dL Intake and Output 03/26/18 03/26/18 03/26/18 06:59 14:59 22:59 Intake Total 640 / 640 720 / 720 Output Total 700 / 700 Balance -60 / -60 720 / 720 Intake: Oral 240 / 240 720 / 720 Other 400 / 400 Rbc As-3 Leukoreduced Unit 400 / 400 [id number] Output: Urine 700 / 700 Other: # Voids 5 Date of Last Bowel Movement 03/26/18 # Bowel Movements 1 Weight 93.5 kg - Imaging and Cardiology Imaging: Impressions Chest X-Ray 03/26/18 06:00 CONCLUSION: 1. Interval removal left-sided chest tube and mediastinal chest tube with no pneumothorax. 2. Interval removal of right-sided central venous line. 3. Abnormal opacity remains in the the left lung base with mild air bronchograms. There is an apparent small left effusion. This is not significantly changed. 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
[2018-03-27] MEDS: Polymyxin/Trimethop Opth Drops 10 ML Bottle EACH EYE SCH ×9 (01:15→23:55)
[2018-03-27] MEDS: Levothyroxine 150 MCG Tablet PO SCH (05:33)
[2018-03-27] MEDS: Docusate Sodium 100 MG Capsule PO SCH ×2 (09:55→20:24)
[2018-03-27] MEDS: amLODIPine 5 MG Tablet PO SCH (09:55)
[2018-03-27] MEDS: Insulin NovoLOG Aspart Correctional Sugar Inj SQ SCH ×4 (09:55→20:24)
[2018-03-27] MEDS: Multivitamin/Minerals Therapeutic Tablet PO SCH (09:55)
[2018-03-27] MEDS: Amiodarone 200 MG Tablet PO SCH (09:55)
[2018-03-27] MEDS: Metoprolol Tartrate 25 MG Tablet PO SCH ×2 (09:55→20:24)
[2018-03-27] MEDS: Timolol 0.5% Drops 5 ML Bottle LEFT EYE SCH ×2 (09:56→20:28)
[2018-03-27] MEDS: Brimonidine 0.2% Opth Drops 5 ML Bottle EACH EYE SCH ×3 (09:56→17:16)
[2018-03-27] MEDS: Polyethylene Glycol 3350 17 GM Packet PO SCH (09:56)
[2018-03-27] MEDS ORDERED: Metoprolol Tartrate 25 MG Tablet PO ONE (11:00)
[2018-03-27] MEDS: Ferrous Sulfate 325 MG Tablet PO SCH ×2 (11:12→16:13)
[2018-03-27 12:03] LABS: Hematocrit 24.4 % (39.0-51.0); Hemoglobin 8.7 gm/dL (13.0-17.0); Mean Corpuscular HGB Conc 35.6 % (32.0-36.0); Mean Corpuscular Hemoglobin 29.9 pg (27.0-34.0); Mean Platelet Volume 6.6 fL (7.0-11.0); Platelet Count 187 th/mm3 (150-450); Red Cell Distribution Width 17.3 % (11.6-17.2); White Blood Count 7.5 th/mm3 (4.0-11.0)
[2018-03-27 12:19] LABS: Alanine Aminotransferase 12 U/L (12-78); Albumin 2.6 g/dL (3.4-5.0); Amylase 39 U/L (25-115); Anion Gap 4 meq/L (5-15); Aspartate Aminotransferase 19 U/L (15-37); Blood Urea Nitrogen 22 mg/dL (7-18); Calcium 8.2 mg/dL (8.5-10.1); Carbon Dioxide 30.5 meq/L (21.0-32.0); Chloride 100 meq/L (98-107); Glomerular Filtration Rate 52 mL/min (>89); Glucose,Random 116 mg/dL (74-106); Lipase 96 U/L (73-393); Potassium 4.2 meq/L (3.5-5.1); Sodium 134 meq/L (136-145)
[2018-03-27 12:21] LABS: Alkaline Phosphatase 48 U/L (45-117)
[2018-03-27] MEDS: Sod Chloride 0.9% Inj 1,000 ML IV.CONT SCH (14:44)
--- NOTE | 2018-03-27 16:05 | P.PNCV ---
- Note Subjective/Hospital Course: 03/22 SURGICAL PROCEDURE 1. Urgent Off-pump Coronary Artery Bypass Grafting x 2 with Left Internal Mammary Artery (SANDS) to Left Anterior Descending (LAD), reverse saphenous vein graft to obtuse Marginal branch of the left Circumflex artery 2. Left leg Endoscopic Vein [place] 3. Intraoperative Vein Mapping. 03/23 Doing well postoperatively Extubated and tolerating Transfer to telemetry stepdown unit today Maintain chest tube to drainage Discharge planning 03/24 Doing well. Hemodynamic [place] and clinically stable Chest tubes continue to drain. Maintain drainage for now Ambulate Discharge planning 03/25 HGB 7.1 will transfuse 2 units PRBC with diuresis chest tubes dc without difficulty wean 02 as tolerated / pulm toileting 03/26 HGB 8.8 post 2 units PRBC will diuresis today wean 02 home tomorrow/ may need home walk test 03/27 pt had some nausea this am labs reviewed / stable at this time + BM will dc amiodarone on room air Increase BB Objective: Vital Signs - 24 hr 03/26/18 17:00 03/26/18 18:00 03/26/18 19:00 Temperature 97.6 F Pulse Rate 103 H 91 H 95 H Respiratory Rate 20 Blood Pressure 150/69 H Pulse Oximetry 95 03/26/18 20:00 03/26/18 20:45 03/26/18 21:00 Temperature Pulse Rate 98 H 97 H 90 Respiratory Rate 18 Blood Pressure Pulse Oximetry 94 L 03/26/18 22:00 03/26/18 23:00 03/27/18 00:00 Temperature 98.3 F Pulse Rate 80 85 80 Respiratory Rate 18 Blood Pressure 134/62 Pulse Oximetry 96 03/27/18 01:00 03/27/18 02:00 03/27/18 03:00 Temperature 98.3 F Pulse Rate 88 86 81 Respiratory Rate 18 Blood Pressure 133/62 Pulse Oximetry 94 L 03/27/18 04:00 03/27/18 05:00 03/27/18 05:37 Temperature Pulse Rate 88 90 Respiratory Rate Blood Pressure Pulse Oximetry 93 L 03/27/18 06:00 03/27/18 07:00 03/27/18 08:00 Temperature 97.7 F Pulse Rate 90 93 H 96 H Respiratory Rate 20 Blood Pressure 153/72 H Pulse Oximetry 92 L 03/27/18 08:48 03/27/18 09:00 03/27/18 10:00 Temperature Pulse Rate 92 H 92 H Respiratory Rate Blood Pressure Pulse Oximetry 93 L 03/27/18 11:00 03/27/18 12:00 Temperature 97.9 F Pulse Rate 72 72 Respiratory Rate 20 Blood Pressure 100/52 L Pulse Oximetry 93 L GENERAL: A&O x 3 SKIN: Warm and dry. prevena dressing to chest , incisions intact to left leg HEAD: Normocephalic. EYES: No scleral icterus. No injection or drainage. NECK: Supple, trachea midline. No JVD or lymphadenopathy. CARDIOVASCULAR: Regular rate and rhythm without murmurs, gallops, or rubs. RESPIRATORY: Breath sounds equal bilaterally. No accessory muscle use. GASTROINTESTINAL: Abdomen soft, non-tender, nondistended. MUSCULOSKELETAL: No cyanosis, or edema. BACK: Nontender without obvious deformity. No CVA tenderness. Labs: Laboratory Results - last 12 hr 03/27/18 03/27/18 03/27/18 08:28 11:09 11:51 WBC 7.5 RBC 2.90 L Hgb 8.7 L Hct 24.4 L MCV 84.0 MCH 29.9 MCHC 35.6 RDW 17.3 H Plt Count 187 MPV 6.6 L Sodium Potassium Chloride Carbon Dioxide Anion Gap BUN Creatinine Estimated GFR POC Glucose 149 H 130 H Random Glucose Calcium Total Bilirubin AST ALT Alkaline Phosphatase Total Protein Albumin Amylase Lipase 03/27/18 11:51 WBC RBC Hgb Hct MCV MCH MCHC RDW Plt Count MPV Sodium 134 L Potassium 4.2 Chloride 100 Carbon Dioxide 30.5 Anion Gap 4 L BUN 22 H Creatinine 1.33 H Estimated GFR 52 L POC Glucose Random Glucose 116 H Calcium 8.2 L Total Bilirubin 0.5 AST 19 ALT 12 Alkaline Phosphatase 48 Total Protein 9.0 H Albumin 2.6 L Amylase 39 Lipase 96 Result Diagrams: 03/27/18 11:51 03/27/18 11:51 Telemetry: NSR - Plan (3) Acute blood loss anemia Plan: s/p 2 units PRBC on PPI HGB 8.8/ 8.7 ferrous sulfate (4) Hyperlipidemia Plan: on statin (5) Hypertension Plan: controlled (6) S/P CABG x 2 Plan: ASA, statin , increase BB , dc OOB ambulate pulm toileting CM to eval for HHC at discharge
[2018-03-27] MEDS: Latanoprost 0.005% Opth Drops 2.5 ML Bottle LEFT EYE SCH (20:27)
--- NOTE | 2018-03-27 23:35 | P.PNCA ---
Subjective Interval history: Nauseated this morning, no other complaints Medications and Allergies Active Medications: Active Medications Hydrocodone Bitart/Acetaminophen ([place] 5/325) 1 tab PO Q3H PRN PRN Reason: PAIN SCALE 1 TO 5 Last Admin: 03/27/18 01:14 Dose: 1 tab Al Hydroxide/Mg Hydroxide (Milk Of Magndonna Liq) 30 ml PO DAILY [facility] Last Admin: 03/27/18 09:56 Dose: Not Given Albuterol (Duoneb Neb (Prn)) 1 ampul NEB Q2HR NEB PRN PRN Reason: WHEEZING Last Admin: 03/23/18 06:08 Dose: 1 ampul Amlodipine Besylate (Norvasc) 5 mg PO DAILY [facility] Last Admin: 03/27/18 09:55 Dose: 5 mg Aspirin (Aspirin Chew) 81 mg PO DAILY [facility] Last Admin: 03/27/18 09:55 Dose: 81 mg Atorvastatin Calcium (Lipitor) 40 mg PO HS [facility] Last Admin: 03/27/18 20:24 Dose: 40 mg Bisacodyl (Dulcolax Supp) 10 mg RECTAL PRN PRN PRN Reason: SEE LABEL COMMENTS Brimonidine Tartrate (Alphagan 0.2% Opth Drops) 1 drops EACH EYE TID [facility] Last Admin: 03/27/18 17:16 Dose: 1 drops Clopidogrel Bisulfate (Plavix) 75 mg PO DAILY [facility] Last Admin: 03/27/18 09:55 Dose: 75 mg Dextrose (D50w Vial) 50 ml IV.PUSH UNSCH PRN PRN Reason: PER HYPOGLYCEMIA PROTOCOL Docusate Sodium (Colace) 100 mg PO BID [facility] Last Admin: 03/27/18 20:24 Dose: 100 mg Ferrous Sulfate (Ferosul) 325 mg PO BID@1200,1700 [facility] Last Admin: 03/27/18 16:13 Dose: Not Given Glucagon (Glucagon Inj) 1 mg OTHER PRN PRN PRN Reason: for Hypoglycemia Protocol Sodium Chloride (Ns Inj) 1,000 mls @ 30 mls/hr IV.CONT .Q24H [facility] Last Admin: 03/27/18 14:44 Dose: Not Given Insulin Aspart (Novolog Insulin Correctional Sugar Inj) 0 unit SQ ACHS [facility]; Protocol Last Admin: 03/27/18 20:24 Dose: 4 unit Latanoprost (Xalatan 0.005% Opth Drops) 1 drop LEFT EYE HS [facility] Last Admin: 03/27/18 20:27 Dose: 1 drop Levothyroxine Sodium (Synthroid) 150 mcg PO DAILY@0600 [facility] Last Admin: 03/27/18 05:33 Dose: 150 mcg Metoprolol Tartrate (Lopressor) 50 mg PO BID [facility] Last Admin: 03/27/18 20:24 Dose: 50 mg Multivitamins/Minerals (Theragran-M) 1 tab PO DAILY [facility] Last Admin: 03/27/18 09:55 Dose: 1 tab Ondansetron HCl (Zofran Inj) 4 mg IV.PUSH Q6H PRN PRN Reason: NAUSEA OR VOMITING Last Admin: 03/27/18 09:55 Dose: 4 mg Pantoprazole Sodium (Protonix) 40 mg PO DAILY@06 [facility] Last Admin: 03/27/18 05:33 Dose: 40 mg Polyethylene Glycol (Miralax) 17 gm PO DAILY [facility] Last Admin: 03/27/18 09:56 Dose: Not Given Polymyxin/Trimethoprim Sulfate (Polytrim Opth Drops) 1 drop EACH EYE Q3H [facility] Last Admin: 03/27/18 20:26 Dose: 1 drop Sennosides (Senokot) 8.6 mg PO [facility] Last Admin: 03/27/18 20:24 Dose: 8.6 mg Sodium Biphosphate/Sodium Phosphate (Fleets Enema (Adult)) 118 ml RECTAL UNSCH PRN PRN Reason: SEE LABEL COMMENTS Sodium Chloride (Ns Flush) 2 ml IV.FLUSH BID [facility] Last Admin: 03/27/18 20:24 Dose: 2 ml Sodium Chloride (Ns Flush) 2 ml IV.FLUSH PRN PRN PRN Reason: FLUSH AFTER USING IV ACCESS Timolol Maleate (Timoptic 0.5% Drops) 1 drops LEFT EYE BID [facility] Last Admin: 03/27/18 20:28 Dose: 1 drops Allergies Allergy/AdvReac Type Severity Reaction Status Date / Time No Known Allergies Allergy Verified 03/20/18 12:49 Home Medications Medication Instructions Recorded Confirmed Type alendronate 70 mg PO QWEEK 03/20/18 03/20/18 History amlodipine 5 mg PO DAILY 03/20/18 03/20/18 History brimonidine 1 drp OPHTHALMIC (EYE) TID 03/20/18 03/20/18 History glipizide 5 mg PO DAILY 03/20/18 03/20/18 History latanoprost 1 drp OPHTHALMIC (EYE) QPM 03/20/18 03/20/18 History levothyroxine 150 mcg PO DAILY 03/20/18 03/20/18 History lorazepam 1 tab PO BID PRN 03/20/18 03/20/18 History lovastatin 40 mg PO DAILY 03/20/18 03/20/18 History metformin 500 mg PO BID 03/20/18 03/20/18 History metoprolol tartrate 50 mg PO BID 03/20/18 03/20/18 History omega-3 fatty acids-fish oil [Fish 1 cap PO DAILY 03/20/18 03/20/18 History Oil] polymyxin B sulf-trimethoprim 1 drp OPHTHALMIC (EYE) Q3H 03/20/18 03/20/18 History Physical Exam Vital signs: Vital Signs 03/27/18 00:00 03/27/18 01:00 03/27/18 02:00 Temperature Pulse Rate 80 88 86 Respiratory Rate Blood Pressure Pulse Oximetry 03/27/18 03:00 03/27/18 04:00 03/27/18 05:00 Temperature 98.3 F Pulse Rate 81 88 90 Respiratory Rate 18 Blood Pressure 133/62 Pulse Oximetry 94 L 03/27/18 05:37 03/27/18 06:00 03/27/18 07:00 Temperature 97.7 F Pulse Rate 90 93 H Respiratory Rate 20 Blood Pressure 153/72 H Pulse Oximetry 93 L 92 L 03/27/18 08:00 03/27/18 08:48 03/27/18 09:00 Temperature Pulse Rate 96 H 92 H Respiratory Rate Blood Pressure Pulse Oximetry 93 L 03/27/18 10:00 03/27/18 11:00 03/27/18 12:00 Temperature 97.9 F Pulse Rate 92 H 72 72 Respiratory Rate 20 Blood Pressure 100/52 L Pulse Oximetry 93 L 03/27/18 13:00 03/27/18 14:00 03/27/18 15:00 Temperature 98.5 F Pulse Rate 78 80 85 Respiratory Rate 20 Blood Pressure 132/60 Pulse Oximetry 90 L 03/27/18 16:00 03/27/18 17:00 03/27/18 18:00 Temperature Pulse Rate 86 96 H 92 H Respiratory Rate Blood Pressure Pulse Oximetry 03/27/18 19:00 03/27/18 20:00 03/27/18 21:00 Temperature 99.2 F Pulse Rate 90 88 92 H Respiratory Rate 14 Blood Pressure 139/65 Pulse Oximetry 92 L 03/27/18 22:00 Temperature Pulse Rate 92 H Respiratory Rate Blood Pressure Pulse Oximetry Intake & Output 03/27/18 03/27/18 03/28/18 06:59 18:59 06:59 Intake Total 720 / 720 480 / 480 Output Total 350 / 350 Balance 370 / 370 480 / 480 Weight 93 kg Intake: Oral 720 / 720 480 / 480 Output: Urine 350 / 350 Other: # Voids 1 3 Date of Last Bowel Movement 03/27/18 03/27/18 # Bowel Movements 1 Narrative: GENERAL: NAD, AAOx3 SKIN: Warm and dry. HEAD: Atraumatic. Normocephalic. EYES: Pupils equal and round. No scleral icterus. No injection or drainage. ENT: No nasal bleeding or discharge. Mucous membranes pink and moist. NECK: Trachea midline. No JVD. CARDIOVASCULAR: Regular rate and rhythm. Sternotomy c/d/i RESPIRATORY: No accessory muscle use. Clear to auscultation. Breath sounds equal bilaterally. GASTROINTESTINAL: Abdomen soft, non-tender, nondistended. Hepatic and splenic margins not palpable. MUSCULOSKELETAL: Extremities without clubbing, cyanosis, or edema. No obvious deformities. NEUROLOGICAL: Awake and alert. No obvious cranial nerve deficits. Motor grossly within normal limits. Five out of 5 muscle strength in the arms and legs. Normal speech. PSYCHIATRIC: Appropriate mood and affect; insight and judgment normal. - Urinary Catheter Management Indwelling Temp Sensing Catheter Cath placed during this visit: yes, but has since been removed by the nurse Reason for continuing: Decision to DC catheter Insertion date: 03/22/18 Insertion time: 14:21 Removal date: 03/23/18 Removal time: 06:00 Results 03/27/18 11:51 03/27/18 11:51 Cardiac Enzymes 03/27/18 Range/Units 11:51 AST 19 (15-37) U/L CBC 03/26/18 03/27/18 Range/Units 04:43 11:51 WBC 8.4 7.5 (4.0-11.0) th/mm3 RBC 3.02 L 2.90 L (4.50-5.90) mil/mm3 Hgb 8.8 L 8.7 L (13.0-17.0) gm/dL Hct 25.9 L 24.4 L (39.0-51.0) % Plt Count 187 187 (150-450) th/mm3 Comprehensive Metabolic Panel 03/26/18 03/27/18 Range/Units 04:43 11:51 Sodium 136 134 L (136-145) meq/L Potassium 4.2 4.2 (3.5-5.1) meq/L Chloride 101 100 (98-107) meq/L Carbon Dioxide 27.6 30.5 (21.0-32.0) meq/L BUN 22 H 22 H (7-18) mg/dL Creatinine 1.20 1.33 H (0.60-1.30) mg/dL Calcium 7.8 L 8.2 L (8.5-10.1) mg/dL AST 19 (15-37) U/L ALT 12 (12-78) U/L Alkaline Phosphatase 48 (45-117) U/L Total Protein 9.0 H (6.4-8.2) g/dL Albumin 2.6 L (3.4-5.0) g/dL Intake and Output 03/27/18 03/27/18 03/28/18 14:59 22:59 06:59 Intake Total 480 / 480 Balance 480 / 480 Intake: Oral 480 / 480 Other: # Voids 3 Date of Last Bowel Movement 03/26/18 03/27/18 # Bowel Movements 1 - Imaging and Cardiology Imaging: Impressions Chest X-Ray 03/26/18 06:00 CONCLUSION: 1. Interval removal left-sided chest tube and mediastinal chest tube with no pneumothorax. 2. Interval removal of right-sided central venous line. 3. Abnormal opacity remains in the the left lung base with mild air bronchograms. There is an apparent small left effusion. This is not significantly changed. Assessment and Plan - Assessment (1) Unstable angina Code(s): I20.0 - Unstable angina Status: Acute (2) Coronary artery disease involving left main coronary artery Code(s): I25.10 - Atherosclerotic heart disease of [place] coronary artery without angina pectoris Status: Acute - Plan 1) CAD/[place] s/p CABGx2 SANDS to LAD SVG to OM 2) Echo (12/2017) EF 55-60%, stage 1 DD, mild MR, trace AR 3) Con't PT 4) Possible home with home health service 5) Amiodarone stopped
[2018-03-28] MEDS: Polymyxin/Trimethop Opth Drops 10 ML Bottle EACH EYE SCH ×4 (04:49→12:10)
[2018-03-28] MEDS: Levothyroxine 150 MCG Tablet PO SCH (05:08)
[2018-03-28] MEDS: Docusate Sodium 100 MG Capsule PO SCH (08:47)
[2018-03-28] MEDS: amLODIPine 5 MG Tablet PO SCH (08:47)
[2018-03-28] MEDS: Multivitamin/Minerals Therapeutic Tablet PO SCH (08:47)
[2018-03-28] MEDS: Metoprolol Tartrate 25 MG Tablet PO SCH (08:48)
[2018-03-28] MEDS: Insulin NovoLOG Aspart Correctional Sugar Inj SQ SCH ×2 (08:48→11:22)
[2018-03-28] MEDS: Brimonidine 0.2% Opth Drops 5 ML Bottle EACH EYE SCH ×2 (08:49→15:10)
[2018-03-28] MEDS: Timolol 0.5% Drops 5 ML Bottle LEFT EYE SCH (08:49)
[2018-03-28] MEDS: Polyethylene Glycol 3350 17 GM Packet PO SCH (08:49)
[2018-03-28 09:55] VITALS: RESP 17
--- NOTE | 2018-03-28 11:01 | XR ---
EXAM DATE: 03/28/2018 10:57 AM EST AGE/SEX: 77 years / Male INDICATIONS: Patient is painful with deep inspiration, post op CABG 6 days. CLINICAL DATA: This is the patient's subsequent encounter. Patient reports that signs and symptoms h ave been present for 1 week and indicates a pain score of 8/10. MEDICAL/SURGICAL HISTORY: Hypertension. Aortic stenosis. CKD. HLD. Hypothyroid. Neuropathy. Pro state cancer. Cardiac catheterization CABG. COMPARISON: [facility] [place] 1V SINGLE AP, 03/26/2018. . FINDINGS: Single AP view the chest. Median sternotomy wires. Patchy left lung base opacity unchanged. Cardiac s ilhouette is mildly enlarged but unchanged. Possible small left pleural effusion unchanged. CONCLUSION: No significant interval change. Left lung base patchy opacity likely representing atelectasis unchang ed. Electronically signed by: Epi Moreno MD 03/28/2018 11:00 AM EST
--- NOTE | 2018-03-28 13:06 | P.DS ---
Date of admission: 03/20/18 17:15 Primary care physician: Nixon Mata MD Attending physician on discharge: Ngoc Peralta Anticipated date of discharge: 03/28/18 Brief History from admission: 77-year-old white male admitted for unstable angina. Patient was in his usual state of health until over the last month or so when his noted that he began having increasing episodes of exertional dyspnea with exertional angina. Patient denies having nausea vomiting, denies any diaphoresis with these episodes. No lower extremity edema. 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 Patient has been started on a heparin drip by cardiology and CT surgery has been consulted. Patient update on day of discharge: doing fair, failed walk test, will need 02 at 2 liters remains in NSR, HR stable continue gentle diuresis dc on BB, statin ASA, plavix DS: Diagnosis - Discharge Diagnosis (1) Coronary artery disease involving left main coronary artery Status: Acute (2) Unstable angina Status: Acute (3) Acute blood loss anemia Status: Acute (4) Hyperlipidemia Status: Chronic (5) Hypertension Status: Chronic (6) S/P CABG x 2 Status: Acute (7) Hx of enucleation of right eyeball Status: Chronic DS: Medications - Discharge Medications Prescriptions: aspirin 81 mg PO DAILY #30 tab clopidogrel [Plavix] 75 mg PO DAILY #30 tab docusate sodium [DOK] 100 mg PO BID #60 cap ferrous sulfate [FeroSul] 325 mg PO DAILY #30 tab furosemide [Lasix] 40 mg PO DAILY #7 tab hydrocodone-acetaminophen 1 tab PO Q4H PRN #30 tab PRN Reason: Pain Scale 1 To 5 afqsiyro-xlhn-II-calcium-mins [Thera M Plus (ferrous fumarat)] 1 tab PO DAILY # 30 tab potassium chloride [Klor-Con 10] 10 meq PO DAILY #7 tab DS: Summary Hospital Course: 03/22 SURGICAL PROCEDURE 1. Urgent Off-pump Coronary Artery Bypass Grafting x 2 with Left Internal Mammary Artery (SANDS) to Left Anterior Descending (LAD), reverse saphenous vein graft to obtuse Marginal branch of the left Circumflex artery 2. Left leg Endoscopic Vein Exira 3. Intraoperative Vein Mapping. 03/23 Doing well postoperatively Extubated and tolerating Transfer to telemetry stepdown unit today Maintain chest tube to drainage Discharge planning 03/24 Doing well. Hemodynamic Monico and clinically stable Chest tubes continue to drain. Maintain drainage for now Ambulate Discharge planning 03/25 HGB 7.1 will transfuse 2 units PRBC with diuresis chest tubes dc without difficulty wean 02 as tolerated / pulm toileting 03/26 HGB 8.8 post 2 units PRBC will diuresis today wean 02 home tomorrow/ may need home walk test 03/27 pt had some nausea this am labs reviewed / stable at this time + BM will dc amiodarone on room air Increase BB 03/28 pt will need 02 at home with 2 liters continue diuresis - Time Spent with Patient Total time spent providing and/or coordinating discharge services: Greater than 30 minutes Exam Vital signs: Vital Signs 03/27/18 14:00 03/27/18 15:00 03/27/18 16:00 Temperature 98.5 F Pulse Rate 80 85 86 Respiratory Rate 20 Blood Pressure 132/60 Pulse Oximetry 90 L Pulse Oximetry [Resting on Room Air] 03/27/18 17:00 03/27/18 18:00 03/27/18 19:00 Temperature 99.2 F Pulse Rate 96 H 92 H 90 Respiratory Rate 14 Blood Pressure 139/65 Pulse Oximetry 92 L Pulse Oximetry [Resting on Room Air] 03/27/18 20:00 03/27/18 21:00 03/27/18 22:00 Temperature Pulse Rate 88 92 H 92 H Respiratory Rate Blood Pressure Pulse Oximetry Pulse Oximetry [Resting on Room Air] 03/27/18 23:00 03/28/18 00:00 03/28/18 01:00 Temperature 99.3 F Pulse Rate 76 80 80 Respiratory Rate 16 Blood Pressure 128/58 L Pulse Oximetry 93 L Pulse Oximetry [Resting on Room Air] 03/28/18 02:00 03/28/18 03:00 03/28/18 04:00 Temperature 99.1 F Pulse Rate 86 82 80 Respiratory Rate 16 Blood Pressure 143/67 H Pulse Oximetry 94 L Pulse Oximetry [Resting on Room Air] 03/28/18 05:00 03/28/18 06:00 03/28/18 07:00 Temperature 98.2 F Pulse Rate 84 81 87 Respiratory Rate 17 Blood Pressure 132/61 Pulse Oximetry 97 Pulse Oximetry [Resting on Room Air] 03/28/18 08:00 03/28/18 09:00 03/28/18 09:14 Temperature Pulse Rate 87 72 Respiratory Rate Blood Pressure Pulse Oximetry Pulse Oximetry [Resting on Room Air] 86 L 03/28/18 10:00 03/28/18 11:00 Temperature 98.1 F Pulse Rate 80 73 Respiratory Rate 17 Blood Pressure 111/56 L Pulse Oximetry 95 Pulse Oximetry [Resting on Room Air] Intake & Output 03/27/18 03/28/18 03/28/18 18:59 06:59 18:59 Intake Total 480 / 480 240 / 240 Output Total 300 / 300 Balance 480 / 480 -60 / -60 Weight 92.5 kg Intake: Oral 480 / 480 240 / 240 Output: Urine 300 / 300 Other: # Voids 3 Date of Last Bowel Movement 03/27/18 # Bowel Movements 1 - Constitutional no acute distress - Routine HEENT Exam Head: Present: normocephalic Eye: Present: EOMI, normal accommodation - Routine Neck Exam Present: supple, full ROM - Routine Chest/Breast/Axilla Exam Chest wall: Present: tenderness - Routine Respiratory Exam Comments: diminished left lower lobe, faint crackles - Routine Cardiovascular Exam Present: RRR, S1, S2 - Routine Abdominal Exam Present: soft, normoactive bowel sounds - Routine Extremities Exam Present: full ROM, pulses intact, normal capillary refill - Routine Skin Exam Present: intact, wounds Comments: prevena dressing to chest, incision intact to left leg - Routine Neurological Exam Present: alert, oriented X3, CN II-XII intact Results Procedures completed during hospitalization: CARDIAC CATHETERIZATION Pt Name: Devyn Lambert MR#: [id number] Loc: [facility] Attended By: Harry Hernandez DO Patient: Devyn Lambert Report #: [id number] Electronically Signed: Patient: Devyn Lambert Report #: [id number] Electronically Signed: Harry Hernandez DO DATE: 03/20/2018 PROCEDURES: Left heart catheterization, right heart catheterization, coronary angiogram, intravascular ultrasound of left main, ultrasound-guided access. PREPROCEDURE DIAGNOSIS: Continued chest pain and shortness of breath, concerning for coronary insufficiency (Vincentian anginal class III) with a normal stress test. POSTPROCEDURE DIAGNOSES: Left main disease in a left dominant system, mild pulmonary hypertension. MEDICATIONS: Fentanyl 100 mcg, heparin 9000 units, nitroglycerin 200 mcg, verapamil 2.5 mg. CONTRAST USED: 75 mL FLUOROSCOPY: 12.0 minutes. MONITORED SEDATION: 0 minutes. FRAILTY SCORE: 4 ESTIMATED BLOOD LOSS: 10 mL PROCEDURAL SUMMARY: Devyn Lambert is a pleasant 77-year-old male, whom I see in the office and underwent stress testing which showed no ischemia. He continued to have chest pain and shortness of breath with minimal exertion, and because of this, he was recommended cardiac catheterization. Risks, benefits, and alternatives were explained to him, and he consented to such. He was brought to the lab and prepped in the usual sterile fashion. The right radial artery was accessed using modified Seldinger technique and placement of a 5/6-[place] slender sheath. This was easily aspirated and flushed. Right brachial vein was accessed using a modified Seldinger technique and ultrasound guidance and placement of a 5/6-[place] sheath. This was easily aspirated and flushed. A [place] catheter was advanced from the brachial vein to a wedge position. Oxygenations as well as pressures were done in a standard pullback fashion throughout the heart. [place] catheter was removed. A JR5 was advanced to the ascending aorta and across the aortic valve for measurement of left ventricular pressure. This was pulled back across the aortic valve showing no significant gradient of aortic stenosis. JR5 was used for selective angiography of the right coronary artery system. This is exchanged out for a JL3.5 which was used for selective angiography of the left coronary artery system. Due to significant dampening with a JL3.5, I felt that the left main needed to be further evaluated. An EBU 3.5 guide was engaged in the left main. The patient was given additional heparin as an anticoagulant. BMW wire was advanced down the LAD. IVUS catheter was placed into the LAD, and recordings were done upon pullback. Review of the images shows that the ostial left main has a minimal luminal area of 6.0 sq mm. Wire was removed, and final angiogram shows no disruption of the coronary anatomy. The radial band was placed over the arteriotomy site for hemostasis. The patient left the catheterization lab cardiovascularly stable. FINDINGS: Left main: Normal-sized vessel with 60% ostial stenosis. It bifurcates into an LAD and circumflex. LAD: Moderate size vessel with mild luminal irregularities throughout the proximal portion. Mid portion appears to have 30% disease. Distally, no significant disease. It gives off 1 major diagonal with no significant disease. LEFT CIRCUMFLEX: Moderate size vessel, which gives off 2 obtuse marginals as well as a posterior descending branch. It has no significant disease throughout. RCA: Small, nondominant vessel which supplies multiple RV branches. HEMODYNAMICS: RA 9. RV 39/9, RVEDP 11. PA 33/17, mean PA 24. Wedge 16. LVEDP 16. IMPRESSION: 1. Unstable angina, Vincentian anginal class III. 2. Left main disease (minimal luminal area of 6.0 sq mm) in a left dominant system. 3. Mild pulmonary hypertension (mean pulmonary artery pressure of 24). RECOMMENDATIONS: 1. Mr. Lambert appears to have significant left main disease in a left dominant system. As he has had continued chest pain and shortness of breath with minimal exertion, I feel that he needs to be admitted and placed on heparin drip in anticipation of surgery. 2. CT surgery has been consulted, and I discussed the case with Dr. Carrera who will see him in consultation in the morning. 3. Previous echocardiogram in the office (12/2017) showed normal function with mild mitral regurgitation and trace aortic regurgitation. 4. Further recommendations will be made based on hospital course. Thank you for allowing me to see Devyn Lambert. If you have any questions, please do not hesitate to call. Harry Hernandez DO Date of procedure: 03/22/18 Anesthesia: GETA Surgeon: Melecio Hernandez MD Operation and Findings: PREPROCEDURE DIAGNOSES 1. Severe Left Main coronary Artery Disease. 2. Unstable angina POSTPROCEDURE DIAGNOSES Same SURGICAL PROCEDURE 1. Urgent Off-pump Coronary Artery Bypass Grafting x 2 with Left Internal Mammary Artery (SANDS) to Left Anterior Descending (LAD), reverse saphenous vein graft to obtuse Marginal branch of the left Circumflex artery 2. Left leg Endoscopic Vein Exira 3. Intraoperative Vein Mapping. Labs on day of discharge: Labs from last 24 hours 11/15/18 11/15/18 11/14/18 11:07 08:05 20:15 POC Glucose 129 H 216 H 146 H 03/27/18 16:39 POC Glucose 129 H - Impressions ITS Impressions Carotid Doppler Study 03/21/18 15:05 CONCLUSION: 1. There is some mild to moderate atherosclerotic plaquing at the carotid bifurcations. 2. No hemodynamically significant stenosis is demonstrated. Lower Extremity Ultrasound 03/21/18 15:05 CONCLUSION: 1. Venous mapping as above. Venous Doppler Study 03/21/18 15:05 CONCLUSION: No evidence of lower extremity DVT on the right or left. Chest X-Ray 03/28/18 00:00 CONCLUSION: No significant interval change. Left lung base patchy opacity likely representing atelectasis unchanged. Discharge Plan - Discharge Disposition Patient Disposition: W/Home Health Service - Discharge Condition Condition: Fair - Discharge Order Discharge Orders: Discharge Order (Routine); Ordered 03/28/18 Ordered By: Tita Gross - Discharge Details Anticipated Discharge Date: 03/28/18 Discharge Comment: after chest xray resulted - Physicians Team Primary Care Provider: Nixon Mata Attending Provider: Melecio Hernandez Other Providers: Melecio Hernandez MD ; Harry Hernandez DO ; Nathaniel Ace MD - Rxs /Orders / Referrals /Forms Prescriptions: New aspirin 81 mg Tablet,Chewable 81 mg PO DAILY Qty: 30 RF: 2 clopidogrel [Plavix] 75 mg Tablet 75 mg PO DAILY Qty: 30 RF: 2 docusate sodium [DOK] 100 mg Capsule 100 mg PO BID Qty: 60 RF: 0 ferrous sulfate [FeroSul] 325 mg (65 mg iron) Tablet 325 mg PO DAILY Qty: 30 RF: 0 furosemide [Lasix] 20 mg Tablet 40 mg PO DAILY Qty: 7 RF: 1 hydrocodone-acetaminophen 5-325 mg Tablet 1 tab PO Q4H PRN (Reason: Pain Scale 1 To 5) Qty: 30 RF: 0 qagpmwtg-qypn-ZZ-calcium-mins [Thera M Plus (ferrous fumarat)] 9 mg iron-400 mcg Tablet 1 tab PO DAILY Qty: 30 RF: 2 polymyxin B sulf-trimethoprim [Polytrim] 10,000 unit- 1 mg/mL Drops 1 drop EACH EYE Q3H RF: 0 potassium chloride [Klor-Con 10] 10 mEq Tablet Extended Release 10 meq PO DAILY Qty: 7 RF: 1 timolol maleate 0.5 % Drops 1 drops LEFT EYE BID RF: 0 Continue alendronate 70 mg Tablet 70 mg PO QWEEK amlodipine 5 mg Tablet 5 mg PO DAILY brimonidine 0.2 % Drops 1 drp OPHTHALMIC (EYE) TID glipizide 5 mg Tablet 5 mg PO DAILY latanoprost 0.005 % Drops 1 drp OPHTHALMIC (EYE) QPM levothyroxine 150 mcg Tablet 150 mcg PO DAILY lorazepam 0.5 mg Tablet 1 tab PO BID PRN (Reason: Anxiety) lovastatin 40 mg Tablet 40 mg PO DAILY metformin 500 mg Tablet 500 mg PO BID metoprolol tartrate 50 mg Tablet 50 mg PO BID omega-3 fatty acids-fish oil [Fish Oil] 360-1,200 mg Capsule 1 cap PO DAILY Discontinued polymyxin B sulf-trimethoprim 10,000 unit- 1 mg/mL Drops 1 drp OPHTHALMIC (EYE) Q3H Ambulatory Orders / Order Sets / DME: Commode 3in (1 each) (Routine) Location: Determined by Patient Ordered By: Tita Gross Oxygen Tank (2-5 liter) (Routine) Timeframe: 2 Months Location: Determined by Patient Ordered By: Tita Gross XR chest 2V PA&LAT (Routine) Timeframe: 2 Weeks Location: Determined by Patient Ordered By: Tita Gross Basic Metabolic Panel (Routine) Timeframe: 1 Week Location: Determined by Patient Ordered By: Tita Gross Referrals: Nixon Mata MD [Primary Care Provider] - See Instructions ( Your appointment has been scheduled for [04/09/18] at [4:00 pm] If you cannot make this appointment, please call the office to reschedule ) [facility], [Agency] - See Instructions Tita Gross [ADVANCE RN PRACTITIONER] - See Instructions ( Your appointment has been scheduled for [04/16/18] at [10:45 am] If you cannot make this appointment, please call the office to reschedule ) Harry Hernandez DO [Physician] - See Instructions ( Your appointment has been scheduled for [04/23/18] at [2:00 pm] If you cannot make this appointment, please call the office to reschedule ) - Discharge Instructions Patient Printed Instructions: Heart Catheterization (DC) Additional Instructions: HOME HEALTH CARE HAS BEEN ARRANGED WITH [facility], CONTACT# PREVENA Single Use Negative Wound Therapy System Caregiver Instruction Sheet 1. A Prevena dressing system was applied to the chest incision during surgery , to promote wound healing. It works via a suction device (negative pressure wound therapy) to remove low to moderate levels of exudate (drainage) and infectious materials. We recommend that the device stay in place for up to seven days, from day of surgery. 2. Day of Surgery___/01/29 Day of Removal ___/ 3. The dressing should only be removed by a health child care specialist. Please arrange removal of device to coincide with Home Health visit and or with Nursing staff at Rehab 4. If skin reddening or irritation of skin occurs, or excessive drainage, please notify the Cardiovascular Surgeons office at [phone]. 5. Light showering is permissible; however the pump should be disconnected and placed in safe location, where it will not get wet. The dressing should not be exposed to direct spray or submerged in water. No bath tub / shower only. Ensure the end of the tubing attached to the dressing is facing down so that water does not enter the top of the tube. 6. To remove Prevena dressing: press purple button to turn off device / remove the suction. Then disconnect the tubing from the pump. The fixation strips should be stretched away from the skin and the dressing lifted at one corner and peeled back until it has been fully removed. 7. After removal, it is ok to shower daily using liquid dial soap and clean wash cloth, rinse and pat dry, and leave incision open to air dry. For any concerns regarding Prevena dressing, and or wounds, please contact Funmilayo Joel, patient navigator at [phone] or notify the Cardiovascular Surgeons office at [phone]. Incentive spirometry Q1 hr x 10, while awake, also use acapella device hourly whole awake Sternal Breast Bone Precautions: NO pushing or pulling, ( pt must use sternal pillow to support chest with all activities and with coughing ( takes up to 3 months breast bone to heal ) Daily incision care: ok to shower daily, no tub bath. Wash all incisions with liquid dial soap, clean wash cloth to each site, rinse and pat dry. Observe for any signs of infection, such as drainage which is dark yellow, sneed, green or foul smelling. Immediately report to the surgeon any drainage from the chest incision, or legs, and for any abnormal drainage from the chest tube sites. Notify surgeon if any temp >101.5 degrees F. When specialty dressing removed/ or if you do not have one, continue to shower daily as above, then rinse and pat incision dry and paint with betadine daily x 5 days. Allow steri strips to fall off if you have any. Avoid lotions, creams, salves, oils, etc. for the first month Please see attached forms for additional instructions regarding post Open Heart specialty wound vacuum dressings. JARON or Prevena , Dressing to be removed by Nursing staff on __// F/U appointment: as per DC instructions: PCP in 2 weeks, CV surgeon 2 weeks, Park Attendant 3-4 weeks For any questions regarding incisions/ dressing / meds / post op care or above Symptoms, Sunday 8am-5pm Heart & Vascular Surgery Office ( Dr. Hernandez & Dr. Peralta), After Hours / Nights (5pm -8am) Weekends and Holidays Please call [facility] Cardiac [facility] ([facility]) Charge Nurse
[2018-03-28] MEDS: Sod Chloride 0.9% Inj 1,000 ML IV.CONT SCH (15:13)
[2018-03-28 15:40] VITALS: BP 115/60; PULSE 70; TEMP 98.3; O2SAT 99
--- NOTE | 2018-03-28 22:47 | P.PNCA ---
Subjective Interval history: No events overnight Continues to show atelectasis on CXR Medications and Allergies Allergies Allergy/AdvReac Type Severity Reaction Status Date / Time No Known Allergies Allergy Verified 03/20/18 12:49 Home Medications Medication Instructions Recorded Confirmed Type alendronate 70 mg PO QWEEK 03/20/18 03/20/18 History amlodipine 5 mg PO DAILY 03/20/18 03/20/18 History brimonidine 1 drp OPHTHALMIC (EYE) TID 03/20/18 03/20/18 History glipizide 5 mg PO DAILY 03/20/18 03/20/18 History latanoprost 1 drp OPHTHALMIC (EYE) QPM 03/20/18 03/20/18 History levothyroxine 150 mcg PO DAILY 03/20/18 03/20/18 History lorazepam 1 tab PO BID PRN 03/20/18 03/20/18 History lovastatin 40 mg PO DAILY 03/20/18 03/20/18 History metformin 500 mg PO BID 03/20/18 03/20/18 History metoprolol tartrate 50 mg PO BID 03/20/18 03/20/18 History omega-3 fatty acids-fish oil [Fish 1 cap PO DAILY 03/20/18 03/20/18 History Oil] Physical Exam Vital signs: Vital Signs 03/27/18 23:00 03/28/18 00:00 03/28/18 01:00 Temperature 99.3 F Pulse Rate 76 80 80 Respiratory Rate 16 Blood Pressure 128/58 L Pulse Oximetry 93 L Pulse Oximetry [Resting on Room Air] 03/28/18 02:00 03/28/18 03:00 03/28/18 04:00 Temperature 99.1 F Pulse Rate 86 82 80 Respiratory Rate 16 Blood Pressure 143/67 H Pulse Oximetry 94 L Pulse Oximetry [Resting on Room Air] 03/28/18 05:00 03/28/18 06:00 03/28/18 07:00 Temperature 98.2 F Pulse Rate 84 81 87 Respiratory Rate 17 Blood Pressure 132/61 Pulse Oximetry 97 Pulse Oximetry [Resting on Room Air] 03/28/18 08:00 03/28/18 09:00 03/28/18 09:14 Temperature Pulse Rate 87 72 Respiratory Rate Blood Pressure Pulse Oximetry Pulse Oximetry [Resting on Room Air] 86 L 03/28/18 10:00 03/28/18 11:00 03/28/18 12:00 Temperature 98.1 F Pulse Rate 80 73 80 Respiratory Rate 17 Blood Pressure 111/56 L Pulse Oximetry 95 Pulse Oximetry [Resting on Room Air] 03/28/18 13:00 03/28/18 15:00 Temperature 98.3 F Pulse Rate 80 70 Respiratory Rate 17 Blood Pressure 115/60 Pulse Oximetry 99 Pulse Oximetry [Resting on Room Air] Intake & Output 03/28/18 03/28/18 03/29/18 06:59 18:59 06:59 Intake Total 240 / 240 Output Total 300 / 300 Balance -60 / -60 Weight 92.5 kg Intake: Oral 240 / 240 Output: Urine 300 / 300 Narrative: GENERAL: NAD, AAOx3 SKIN: Warm and dry. HEAD: Atraumatic. Normocephalic. EYES: Pupils equal and round. No scleral icterus. No injection or drainage. ENT: No nasal bleeding or discharge. Mucous membranes pink and moist. NECK: Trachea midline. No JVD. CARDIOVASCULAR: Regular rate and rhythm. Sternotomy c/d/i RESPIRATORY: No accessory muscle use. Clear to auscultation. Breath sounds equal bilaterally. GASTROINTESTINAL: Abdomen soft, non-tender, nondistended. Hepatic and splenic margins not palpable. MUSCULOSKELETAL: Extremities without clubbing, cyanosis, or edema. No obvious deformities. NEUROLOGICAL: Awake and alert. No obvious cranial nerve deficits. Motor grossly within normal limits. Five out of 5 muscle strength in the arms and legs. Normal speech. PSYCHIATRIC: Appropriate mood and affect; insight and judgment normal. - Urinary Catheter Management Indwelling Temp Sensing Catheter Cath placed during this visit: yes, but has since been removed by the nurse Reason for continuing: Decision to DC catheter Insertion date: 03/22/18 Insertion time: 14:21 Removal date: 03/23/18 Removal time: 06:00 Results 03/27/18 11:51 03/27/18 11:51 Cardiac Enzymes 03/27/18 Range/Units 11:51 AST 19 (15-37) U/L CBC 03/27/18 Range/Units 11:51 WBC 7.5 (4.0-11.0) th/mm3 RBC 2.90 L (4.50-5.90) mil/mm3 Hgb 8.7 L (13.0-17.0) gm/dL Hct 24.4 L (39.0-51.0) % Plt Count 187 (150-450) th/mm3 Comprehensive Metabolic Panel 03/27/18 Range/Units 11:51 Sodium 134 L (136-145) meq/L Potassium 4.2 (3.5-5.1) meq/L Chloride 100 (98-107) meq/L Carbon Dioxide 30.5 (21.0-32.0) meq/L BUN 22 H (7-18) mg/dL Creatinine 1.33 H (0.60-1.30) mg/dL Calcium 8.2 L (8.5-10.1) mg/dL AST 19 (15-37) U/L ALT 12 (12-78) U/L Alkaline Phosphatase 48 (45-117) U/L Total Protein 9.0 H (6.4-8.2) g/dL Albumin 2.6 L (3.4-5.0) g/dL Intake and Output 03/28/18 03/28/18 03/28/18 06:59 14:59 22:59 Intake Total 240 / 240 Output Total 300 / 300 Balance -60 / -60 Intake: Oral 240 / 240 Output: Urine 300 / 300 Other: Weight 92.5 kg - Imaging and Cardiology Imaging: Impressions Chest X-Ray 03/28/18 00:00 CONCLUSION: No significant interval change. Left lung base patchy opacity likely representing atelectasis unchanged. Assessment and Plan - Assessment (1) Unstable angina Code(s): I20.0 - Unstable angina Status: Acute (2) Coronary artery disease involving left main coronary artery Code(s): I25.10 - Atherosclerotic heart disease of [place] coronary artery without angina pectoris Status: Acute (3) S/P CABG x 2 Code(s): Z95.1 - Presence of aortocoronary bypass graft Status: Acute (4) Hx of enucleation of right eyeball Code(s): Z98.890 - Other specified postprocedural states; Z90.01 - Acquired absence of eye Status: Chronic (5) Hyperlipidemia Code(s): E78.5 - Hyperlipidemia, unspecified Status: Chronic (6) Hypertension Code(s): I10 - Essential (primary) hypertension Status: Chronic - Plan 1) CAD/[place] s/p CABGx2 SANDS to LAD SVG to OM 2) Echo (12/2017) EF 55-60%, stage 1 DD, mild MR, trace AR 3) Con't PT 4) Possible home with home health service 5) Amiodarone stopped 6) Discussed using incentive spirometer to help with atelectasis
== END 2018-03-28 17:30 | disposition home health service (06) ==
LOC: HDOC 11:55 → HDIC 12:02 → HCIS 15:23 → HDIC 15:26 → HCIS 17:56 → HCPC 03-21 18:55 → HCVI 03-22 19:40 → HCPC 03-23 16:25
PROVIDERS: ADMIT Thoracic Surgery (Cardiothoracic Vascular Surgery); ATTEND Thoracic Surgery (Cardiothoracic Vascular Surgery)

== ENCOUNTER 2018-05-16 12:30 | Inpatient (IN) ==
--- NOTE | 2018-05-16 13:26 | ED ---
HPI General Chief complaint: Weakness Stated complaint: low bp x 3 days Time Seen by Provider: 05/16/18 12:51 History of Present Illness HPI narrative: 77-year-old male here for evaluation generalized weakness. Patient is S/P the CABG performed 03/22/[address] Hernandez, he says he gets short of breath easily, he gets short of breath when he walks to the bathroom, feels weak most of the time, denies any cough or chest pain. Related Data Home Medications Medication Instructions Recorded Confirmed alendronate 70 mg PO QWEEK 03/20/18 05/16/18 brimonidine 1 drp OPHTHALMIC (EYE) TID 03/20/18 05/16/18 glipizide 5 mg PO DAILY 03/20/18 05/16/18 latanoprost 1 drp OPHTHALMIC (EYE) QPM 03/20/18 05/16/18 levothyroxine 150 mcg PO DAILY 03/20/18 05/16/18 lorazepam 1 tab PO BID PRN 03/20/18 05/16/18 metformin 500 mg PO BID 03/20/18 05/16/18 metoprolol tartrate 50 mg PO BID 03/20/18 05/16/18 omega-3 fatty acids-fish oil [Fish 1 cap PO DAILY 03/20/18 05/16/18 Oil] docusate sodium [DOK] 100 mg PO DAILY 04/26/18 05/16/18 amitriptyline 25 mg PO HS 05/16/18 05/16/18 atorvastatin 80 mg PO QPM 05/16/18 05/16/18 melatonin 10 mg PO HS PRN 05/16/18 05/16/18 ondansetron HCl [Zofran] 8 mg PO TID PRN 05/16/18 05/16/18 Previous Rx's Medication Instructions Recorded aspirin 81 mg PO DAILY #30 tab 03/28/18 clopidogrel [Plavix] 75 mg PO DAILY #30 tab 03/28/18 ferrous sulfate [FeroSul] 325 mg PO DAILY #30 tab 03/28/18 furosemide [Lasix] 40 mg PO DAILY #7 tab 03/28/18 nbwbzjul-oydn-YC-calcium-mins 1 tab PO DAILY #30 tab 03/28/18 [Thera M Plus (ferrous fumarat)] polymyxin B sulf-trimethoprim 1 drop EACH EYE Q3H ml 03/28/18 [Polytrim] potassium chloride [Klor-Con 10] 10 meq PO DAILY #7 tab 03/28/18 timolol maleate 1 drops LEFT EYE BID ml 03/28/18 Allergies Allergy/AdvReac Type Severity Reaction Status Date / Time enalapril AdvReac Intermediate Cough Verified 05/16/18 12:42 FOR[facility]LY [facility], [facility] Family History Family History Father Anemia Other Diabetes Social History Social History Substance History: No History of Abuse Second Hand Smoke Exposure: No Smoking Status: Never smoker Tobacco Type: Cigarettes How Often Do You Have a Drink Containing Alcohol: Never Recent Travel in [facility] within the Last 8 Weeks: No Recent Out of Country Travel within the Last 8 Weeks: No Procedures Hemaprompt Stool Procedural Steps Taken: specimen placed in appropriate test area Hemaprompt Stool Result: positive Course Initial Documented Vital Signs Temperature 98.8 F 05/16/18 12:35 Pulse Rate 106 H 05/16/18 12:35 Respiratory Rate 18 05/16/18 12:35 Blood Pressure 116/58 L 05/16/18 12:35 Pulse Oximetry 95 05/16/18 12:35 Last Documented Vital Signs Temperature 97.5 F L 05/18/18 04:00 Pulse Rate 89 05/18/18 04:00 Respiratory Rate 20 05/18/18 04:00 Blood Pressure 152/67 H 05/18/18 04:00 Pulse Oximetry 100 05/18/18 04:00 Medical Decision Making [facility] Narrative Medical decision making narrative: 77 male here for evaluation of generalized weakness and shortness of breath. Vitals concerning for tachycardia of 100 or 6 , his EKG shows sinus tach he no ST elevation or depression, his hemoglobin is 5.2, his Hemoccult is POSITIVE, patient says that he noticed black stool for the last 2 months but he thought it was his iron pills that he takes. Patient will be admitted for GI bleed and symptomatic anemia. Patient received 40 IV Protonix. type&screen ordered, 2U PRBCS ordered. Medical Screen Exam Complete: Yes Emergency Medical Condition: Yes Lab Data Result diagrams: 05/18/18 06:11 05/18/18 06:11 Lab Results 01/03/19 01/03/19 01/03/19 Range/Units 01:45 13:05 13:05 CBC w Diff Slide review pending WBC 6.1 (4.0-11.0) th/mm3 RBC 1.94 L (4.50-5.90) mil/mm3 Hgb 5.2 L* (13.0-17.0) gm/dL Hct 16.3 L* (39.0-51.0) % MCV 84.4 (80.0-100.0) fL MCH 26.8 L (27.0-34.0) pg MCHC 31.8 L (32.0-36.0) % RDW 17.5 H (11.6-17.2) % Plt Count 267 (150-450) th/mm3 MPV 7.1 (7.0-11.0) fL Neut % (Auto) 75.7 H (16.0-70.0) % Lymph % (Auto) 13.1 (9.0-44.0) % [place] % (Auto) 7.8 (0.0-8.0) % Eos % (Auto) 3.2 (0.0-4.0) % Baso % (Auto) 0.2 (0.0-2.0) % Neut # (Auto) 4.6 (1.8-7.7) th/mm3 Lymph # (Auto) 0.8 L (1.0-4.8) th/mm3 [place] # (Auto) 0.5 (0.0-0.9) th/mm3 Eos # (Auto) 0.2 (0.0-0.4) th/mm3 Baso # (Auto) 0.0 (0.0-0.2) th/mm3 WBC Differential Manual diff final Diff Scan Seg Neuts % (Manual) 85 H (16-70) % Band Neuts % (Manual) 1 (0-6) % Lymphocytes % (Manual) 9 (9-44) % Monocytes % (Manual) 3 (0-8) % Eosinophils % (Manual) 2 (0-4) % Abs Neuts (Manual) 5.2 (1.8-7.7) th/mm3 Differential Comment . Platelet Estimate Normal (Normal) Platelet Morphology Normal (Normal) PT 11.4 (9.8-11.6) sec INR 1.1 Ratio APTT 30.1 (23.4-31.7) sec Fibrinogen (227-377) mg/dL D-Dimer Quant (PE/DVT) 1.27 H (0.00-0.50) mg/L FEU Sodium (136-145) meq/L Potassium (3.5-5.1) meq/L Chloride (98-107) meq/L Carbon Dioxide (21.0-32.0) meq/L Anion Gap (5-15) meq/L BUN (7-18) mg/dL Creatinine (0.60-1.30) mg/dL Estimated GFR (>89) mL/min POC Glucose (68-110) mg/dl Random Glucose (74-106) mg/dL Calcium (8.5-10.1) mg/dL Phosphorus (2.5-4.9) mg/dL Magnesium (1.5-2.5) mg/dL Total Bilirubin (0.2-1.0) mg/dL Direct Bilirubin (0.0-0.2) mg/dL Indirect Bilirubin (0.0-0.8) mg/dL AST (15-37) U/L ALT (12-78) U/L Alkaline Phosphatase (45-117) U/L Total Creatine Kinase (39-308) U/L Troponin I (0.02-0.05) ng/mL B-Natriuretic Peptide (0-100) pg/mL Total Protein (6.4-8.2) g/dL Albumin (3.4-5.0) g/dL Lipase (73-393) U/L Ur Collection Type Clean catch Urine Color Yellow (Yellw/Straw) Urine Clarity Clear (Clear) Urine pH 6.0 (5.0-8.5) Ur Specific [place] 1.010 (1.002-1.035) Urine Protein Negative (Neg-Trace) mg/dL Urine Glucose (UA) Negative (Negative) mg/dL Urine Ketones Negative (Negative) mg/dL Urine Occult Blood Negative (Negative) Urine Nitrate Negative (Negative) Urine Bilirubin Negative (Negative) Urine Urobilinogen 1.0 (Less than 2) mg/dL Ur Leukocyte Esterase Negative (Negative) Ur Squamous Epith Cells 0-5 (0-5) /hpf Micro UA Comment Culture not ind Ur Microscopic Review Microscopic reviewed Urine Culture Comments Culture not ind Blood Type Antibody Screen MTS Gel Crossmatch 05/16/18 05/16/18 05/16/18 Range/Units 13:05 13:05 13:05 CBC w Diff WBC (4.0-11.0) th/mm3 RBC (4.50-5.90) mil/mm3 Hgb (13.0-17.0) gm/dL Hct (39.0-51.0) % MCV (80.0-100.0) fL MCH (27.0-34.0) pg MCHC (32.0-36.0) % RDW (11.6-17.2) % Plt Count (150-450) th/mm3 MPV (7.0-11.0) fL Neut % (Auto) (16.0-70.0) % Lymph % (Auto) (9.0-44.0) % [place] % (Auto) (0.0-8.0) % Eos % (Auto) (0.0-4.0) % Baso % (Auto) (0.0-2.0) % Neut # (Auto) (1.8-7.7) th/mm3 Lymph # (Auto) (1.0-4.8) th/mm3 [place] # (Auto) (0.0-0.9) th/mm3 Eos # (Auto) (0.0-0.4) th/mm3 Baso # (Auto) (0.0-0.2) th/mm3 WBC Differential Diff Scan Seg Neuts % (Manual) (16-70) % Band Neuts % (Manual) (0-6) % Lymphocytes % (Manual) (9-44) % Monocytes % (Manual) (0-8) % Eosinophils % (Manual) (0-4) % Abs Neuts (Manual) (1.8-7.7) th/mm3 Differential Comment Platelet Estimate (Normal) Platelet Morphology (Normal) PT (9.8-11.6) sec INR Ratio APTT (23.4-31.7) sec Fibrinogen (227-377) mg/dL D-Dimer Quant (PE/DVT) (0.00-0.50) mg/L FEU Sodium 139 (136-145) meq/L Potassium 3.7 (3.5-5.1) meq/L Chloride 105 (98-107) meq/L Carbon Dioxide 27.2 (21.0-32.0) meq/L Anion Gap 7 (5-15) meq/L BUN 25 H (7-18) mg/dL Creatinine 1.10 (0.60-1.30) mg/dL Estimated GFR 65 L (>89) mL/min POC Glucose (68-110) mg/dl Random Glucose 138 H (74-106) mg/dL Calcium 7.6 L (8.5-10.1) mg/dL Phosphorus (2.5-4.9) mg/dL Magnesium (1.5-2.5) mg/dL Total Bilirubin 0.2 (0.2-1.0) mg/dL Direct Bilirubin (0.0-0.2) mg/dL Indirect Bilirubin (0.0-0.8) mg/dL AST 13 L (15-37) U/L ALT 12 (12-78) U/L Alkaline Phosphatase 67 (45-117) U/L Total Creatine Kinase 48 (39-308) U/L Troponin I Less than 0.02 L (0.02-0.05) ng/mL B-Natriuretic Peptide 114 H (0-100) pg/mL Total Protein 8.4 H (6.4-8.2) g/dL Albumin 2.4 L (3.4-5.0) g/dL Lipase 144 (73-393) U/L Ur Collection Type Urine Color (Yellw/Straw) Urine Clarity (Clear) Urine pH (5.0-8.5) Ur Specific [place] (1.002-1.035) Urine Protein (Neg-Trace) mg/dL Urine Glucose (UA) (Negative) mg/dL Urine Ketones (Negative) mg/dL Urine Occult Blood (Negative) Urine Nitrate (Negative) Urine Bilirubin (Negative) Urine Urobilinogen (Less than 2) mg/dL Ur Leukocyte Esterase (Negative) Ur Squamous Epith Cells (0-5) /hpf Micro UA Comment Ur Microscopic Review Urine Culture Comments Blood Type Antibody Screen MTS Gel Crossmatch 05/16/18 05/16/18 05/16/18 Range/Units 13:05 16:44 22:09 CBC w Diff WBC (4.0-11.0) th/mm3 RBC (4.50-5.90) mil/mm3 Hgb (13.0-17.0) gm/dL Hct (39.0-51.0) % MCV (80.0-100.0) fL MCH (27.0-34.0) pg MCHC (32.0-36.0) % RDW (11.6-17.2) % Plt Count (150-450) th/mm3 MPV (7.0-11.0) fL Neut % (Auto) (16.0-70.0) % Lymph % (Auto) (9.0-44.0) % [place] % (Auto) (0.0-8.0) % Eos % (Auto) (0.0-4.0) % Baso % (Auto) (0.0-2.0) % Neut # (Auto) (1.8-7.7) th/mm3 Lymph # (Auto) (1.0-4.8) th/mm3 [place] # (Auto) (0.0-0.9) th/mm3 Eos # (Auto) (0.0-0.4) th/mm3 Baso # (Auto) (0.0-0.2) th/mm3 WBC Differential Diff Scan Seg Neuts % (Manual) (16-70) % Band Neuts % (Manual) (0-6) % Lymphocytes % (Manual) (9-44) % Monocytes % (Manual) (0-8) % Eosinophils % (Manual) (0-4) % Abs Neuts (Manual) (1.8-7.7) th/mm3 Differential Comment Platelet Estimate (Normal) Platelet Morphology (Normal) PT (9.8-11.6) sec INR Ratio APTT (23.4-31.7) sec Fibrinogen (227-377) mg/dL D-Dimer Quant (PE/DVT) (0.00-0.50) mg/L FEU Sodium (136-145) meq/L Potassium (3.5-5.1) meq/L Chloride (98-107) meq/L Carbon Dioxide (21.0-32.0) meq/L Anion Gap (5-15) meq/L BUN (7-18) mg/dL Creatinine (0.60-1.30) mg/dL Estimated GFR (>89) mL/min POC Glucose 118 H 116 H (68-110) mg/dl Random Glucose (74-106) mg/dL Calcium (8.5-10.1) mg/dL Phosphorus (2.5-4.9) mg/dL Magnesium (1.5-2.5) mg/dL Total Bilirubin (0.2-1.0) mg/dL Direct Bilirubin (0.0-0.2) mg/dL Indirect Bilirubin (0.0-0.8) mg/dL AST (15-37) U/L ALT (12-78) U/L Alkaline Phosphatase (45-117) U/L Total Creatine Kinase (39-308) U/L Troponin I (0.02-0.05) ng/mL B-Natriuretic Peptide (0-100) pg/mL Total Protein (6.4-8.2) g/dL Albumin (3.4-5.0) g/dL Lipase (73-393) U/L Ur Collection Type Urine Color (Yellw/Straw) Urine Clarity (Clear) Urine pH (5.0-8.5) Ur Specific [place] (1.002-1.035) Urine Protein (Neg-Trace) mg/dL Urine Glucose (UA) (Negative) mg/dL Urine Ketones (Negative) mg/dL Urine Occult Blood (Negative) Urine Nitrate (Negative) Urine Bilirubin (Negative) Urine Urobilinogen (Less than 2) mg/dL Ur Leukocyte Esterase (Negative) Ur Squamous Epith Cells (0-5) /hpf Micro UA Comment Ur Microscopic Review Urine Culture Comments Blood Type A Positive Antibody Screen Negative MTS Gel Crossmatch See Detail 05/17/18 05/17/18 05/17/18 Range/Units 03:00 05:00 05:00 CBC w Diff Slide review pending WBC 6.6 (4.0-11.0) th/mm3 RBC 2.41 L (4.50-5.90) mil/mm3 Hgb 6.5 L* 6.4 L* (13.0-17.0) gm/dL Hct 20.1 L* (39.0-51.0) % MCV 83.6 (80.0-100.0) fL MCH 26.7 L (27.0-34.0) pg MCHC 32.0 (32.0-36.0) % RDW 16.3 (11.6-17.2) % Plt Count 272 (150-450) th/mm3 MPV 6.9 L (7.0-11.0) fL Neut % (Auto) 71.6 H (16.0-70.0) % Lymph % (Auto) 16.1 (9.0-44.0) % [place] % (Auto) 9.1 H (0.0-8.0) % Eos % (Auto) 2.9 (0.0-4.0) % Baso % (Auto) 0.3 (0.0-2.0) % Neut # (Auto) 4.7 (1.8-7.7) th/mm3 Lymph # (Auto) 1.1 (1.0-4.8) th/mm3 [place] # (Auto) 0.6 (0.0-0.9) th/mm3 Eos # (Auto) 0.2 (0.0-0.4) th/mm3 Baso # (Auto) 0.0 (0.0-0.2) th/mm3 WBC Differential . Diff Scan Auto diff confirmed Seg Neuts % (Manual) (16-70) % Band Neuts % (Manual) (0-6) % Lymphocytes % (Manual) (9-44) % Monocytes % (Manual) (0-8) % Eosinophils % (Manual) (0-4) % Abs Neuts (Manual) (1.8-7.7) th/mm3 Differential Comment . Platelet Estimate (Normal) Platelet Morphology (Normal) PT (9.8-11.6) sec INR Ratio APTT (23.4-31.7) sec Fibrinogen (227-377) mg/dL D-Dimer Quant (PE/DVT) (0.00-0.50) mg/L FEU Sodium 139 (136-145) meq/L Potassium 3.8 (3.5-5.1) meq/L Chloride 106 (98-107) meq/L Carbon Dioxide 27.0 (21.0-32.0) meq/L Anion Gap 6 (5-15) meq/L BUN 19 H (7-18) mg/dL Creatinine 1.00 (0.60-1.30) mg/dL Estimated GFR 72 L (>89) mL/min POC Glucose (68-110) mg/dl Random Glucose 96 (74-106) mg/dL Calcium 7.5 L (8.5-10.1) mg/dL Phosphorus (2.5-4.9) mg/dL Magnesium (1.5-2.5) mg/dL Total Bilirubin 1.0 (0.2-1.0) mg/dL Direct Bilirubin (0.0-0.2) mg/dL Indirect Bilirubin (0.0-0.8) mg/dL AST 11 L (15-37) U/L ALT 12 (12-78) U/L Alkaline Phosphatase 66 (45-117) U/L Total Creatine Kinase (39-308) U/L Troponin I (0.02-0.05) ng/mL B-Natriuretic Peptide (0-100) pg/mL Total Protein 8.4 H (6.4-8.2) g/dL Albumin 2.5 L (3.4-5.0) g/dL Lipase (73-393) U/L Ur Collection Type Urine Color (Yellw/Straw) Urine Clarity (Clear) Urine pH (5.0-8.5) Ur Specific [place] (1.002-1.035) Urine Protein (Neg-Trace) mg/dL Urine Glucose (UA) (Negative) mg/dL Urine Ketones (Negative) mg/dL Urine Occult Blood (Negative) Urine Nitrate (Negative) Urine Bilirubin (Negative) Urine Urobilinogen (Less than 2) mg/dL Ur Leukocyte Esterase (Negative) Ur Squamous Epith Cells (0-5) /hpf Micro UA Comment Ur Microscopic Review Urine Culture Comments Blood Type Antibody Screen MTS Gel Crossmatch 05/17/18 05/17/18 05/17/18 Range/Units 06:57 07:08 10:02 CBC w Diff WBC (4.0-11.0) th/mm3 RBC (4.50-5.90) mil/mm3 Hgb (13.0-17.0) gm/dL Hct (39.0-51.0) % MCV (80.0-100.0) fL MCH (27.0-34.0) pg MCHC (32.0-36.0) % RDW (11.6-17.2) % Plt Count (150-450) th/mm3 MPV (7.0-11.0) fL Neut % (Auto) (16.0-70.0) % Lymph % (Auto) (9.0-44.0) % [place] % (Auto) (0.0-8.0) % Eos % (Auto) (0.0-4.0) % Baso % (Auto) (0.0-2.0) % Neut # (Auto) (1.8-7.7) th/mm3 Lymph # (Auto) (1.0-4.8) th/mm3 [place] # (Auto) (0.0-0.9) th/mm3 Eos # (Auto) (0.0-0.4) th/mm3 Baso # (Auto) (0.0-0.2) th/mm3 WBC Differential Diff Scan Seg Neuts % (Manual) (16-70) % Band Neuts % (Manual) (0-6) % Lymphocytes % (Manual) (9-44) % Monocytes % (Manual) (0-8) % Eosinophils % (Manual) (0-4) % Abs Neuts (Manual) (1.8-7.7) th/mm3 Differential Comment Platelet Estimate (Normal) Platelet Morphology (Normal) PT (9.8-11.6) sec INR Ratio APTT (23.4-31.7) sec Fibrinogen (227-377) mg/dL D-Dimer Quant (PE/DVT) (0.00-0.50) mg/L FEU Sodium (136-145) meq/L Potassium (3.5-5.1) meq/L Chloride (98-107) meq/L Carbon Dioxide (21.0-32.0) meq/L Anion Gap (5-15) meq/L BUN (7-18) mg/dL Creatinine (0.60-1.30) mg/dL Estimated GFR (>89) mL/min POC Glucose 114 H (68-110) mg/dl Random Glucose (74-106) mg/dL Calcium (8.5-10.1) mg/dL Phosphorus (2.5-4.9) mg/dL Magnesium (1.5-2.5) mg/dL Total Bilirubin (0.2-1.0) mg/dL Direct Bilirubin (0.0-0.2) mg/dL Indirect Bilirubin (0.0-0.8) mg/dL AST (15-37) U/L ALT (12-78) U/L Alkaline Phosphatase (45-117) U/L Total Creatine Kinase (39-308) U/L Troponin I (0.02-0.05) ng/mL B-Natriuretic Peptide (0-100) pg/mL Total Protein (6.4-8.2) g/dL Albumin (3.4-5.0) g/dL Lipase (73-393) U/L Ur Collection Type Urine Color (Yellw/Straw) Urine Clarity (Clear) Urine pH (5.0-8.5) Ur Specific [place] (1.002-1.035) Urine Protein (Neg-Trace) mg/dL Urine Glucose (UA) (Negative) mg/dL Urine Ketones (Negative) mg/dL Urine Occult Blood (Negative) Urine Nitrate (Negative) Urine Bilirubin (Negative) Urine Urobilinogen (Less than 2) mg/dL Ur Leukocyte Esterase (Negative) Ur Squamous Epith Cells (0-5) /hpf Micro UA Comment Ur Microscopic Review Urine Culture Comments Blood Type Antibody Screen MTS Gel Crossmatch See Detail See Detail 05/17/18 05/17/18 05/17/18 Range/Units 11:48 16:51 22:35 CBC w Diff WBC (4.0-11.0) th/mm3 RBC (4.50-5.90) mil/mm3 Hgb (13.0-17.0) gm/dL Hct (39.0-51.0) % MCV (80.0-100.0) fL MCH (27.0-34.0) pg MCHC (32.0-36.0) % RDW (11.6-17.2) % Plt Count (150-450) th/mm3 MPV (7.0-11.0) fL Neut % (Auto) (16.0-70.0) % Lymph % (Auto) (9.0-44.0) % [place] % (Auto) (0.0-8.0) % Eos % (Auto) (0.0-4.0) % Baso % (Auto) (0.0-2.0) % Neut # (Auto) (1.8-7.7) th/mm3 Lymph # (Auto) (1.0-4.8) th/mm3 [place] # (Auto) (0.0-0.9) th/mm3 Eos # (Auto) (0.0-0.4) th/mm3 Baso # (Auto) (0.0-0.2) th/mm3 WBC Differential Diff Scan Seg Neuts % (Manual) (16-70) % Band Neuts % (Manual) (0-6) % Lymphocytes % (Manual) (9-44) % Monocytes % (Manual) (0-8) % Eosinophils % (Manual) (0-4) % Abs Neuts (Manual) (1.8-7.7) th/mm3 Differential Comment Platelet Estimate (Normal) Platelet Morphology (Normal) PT (9.8-11.6) sec INR Ratio APTT (23.4-31.7) sec Fibrinogen 389 H (227-377) mg/dL D-Dimer Quant (PE/DVT) (0.00-0.50) mg/L FEU Sodium (136-145) meq/L Potassium (3.5-5.1) meq/L Chloride (98-107) meq/L Carbon Dioxide (21.0-32.0) meq/L Anion Gap (5-15) meq/L BUN (7-18) mg/dL Creatinine (0.60-1.30) mg/dL Estimated GFR (>89) mL/min POC Glucose 110 102 (68-110) mg/dl Random Glucose (74-106) mg/dL Calcium (8.5-10.1) mg/dL Phosphorus (2.5-4.9) mg/dL Magnesium (1.5-2.5) mg/dL Total Bilirubin (0.2-1.0) mg/dL Direct Bilirubin (0.0-0.2) mg/dL Indirect Bilirubin (0.0-0.8) mg/dL AST (15-37) U/L ALT (12-78) U/L Alkaline Phosphatase (45-117) U/L Total Creatine Kinase (39-308) U/L Troponin I (0.02-0.05) ng/mL B-Natriuretic Peptide (0-100) pg/mL Total Protein (6.4-8.2) g/dL Albumin (3.4-5.0) g/dL Lipase (73-393) U/L Ur Collection Type Urine Color (Yellw/Straw) Urine Clarity (Clear) Urine pH (5.0-8.5) Ur Specific [place] (1.002-1.035) Urine Protein (Neg-Trace) mg/dL Urine Glucose (UA) (Negative) mg/dL Urine Ketones (Negative) mg/dL Urine Occult Blood (Negative) Urine Nitrate (Negative) Urine Bilirubin (Negative) Urine Urobilinogen (Less than 2) mg/dL Ur Leukocyte Esterase (Negative) Ur Squamous Epith Cells (0-5) /hpf Micro UA Comment Ur Microscopic Review Urine Culture Comments Blood Type Antibody Screen MTS Gel Crossmatch 05/17/18 05/18/18 05/18/18 Range/Units 22:35 06:11 06:11 CBC w Diff Auto diff final WBC 6.2 (4.0-11.0) th/mm3 RBC 3.23 L (4.50-5.90) mil/mm3 Hgb 9.4 L D 9.0 L (13.0-17.0) gm/dL Hct 29.4 L 28.0 L (39.0-51.0) % MCV 86.6 (80.0-100.0) fL MCH 27.8 (27.0-34.0) pg MCHC 32.1 (32.0-36.0) % RDW 16.0 (11.6-17.2) % Plt Count 251 (150-450) th/mm3 MPV 7.1 (7.0-11.0) fL Neut % (Auto) 71.3 H (16.0-70.0) % Lymph % (Auto) 15.5 (9.0-44.0) % [place] % (Auto) 10.3 H (0.0-8.0) % Eos % (Auto) 2.6 (0.0-4.0) % Baso % (Auto) 0.3 (0.0-2.0) % Neut # (Auto) 4.4 (1.8-7.7) th/mm3 Lymph # (Auto) 1.0 (1.0-4.8) th/mm3 [place] # (Auto) 0.6 (0.0-0.9) th/mm3 Eos # (Auto) 0.2 (0.0-0.4) th/mm3 Baso # (Auto) 0.0 (0.0-0.2) th/mm3 WBC Differential . Diff Scan Seg Neuts % (Manual) (16-70) % Band Neuts % (Manual) (0-6) % Lymphocytes % (Manual) (9-44) % Monocytes % (Manual) (0-8) % Eosinophils % (Manual) (0-4) % Abs Neuts (Manual) (1.8-7.7) th/mm3 Differential Comment . Platelet Estimate (Normal) Platelet Morphology (Normal) PT (9.8-11.6) sec INR Ratio APTT (23.4-31.7) sec Fibrinogen (227-377) mg/dL D-Dimer Quant (PE/DVT) (0.00-0.50) mg/L FEU Sodium 140 (136-145) meq/L Potassium 3.4 L (3.5-5.1) meq/L Chloride 106 (98-107) meq/L Carbon Dioxide 26.8 (21.0-32.0) meq/L Anion Gap 7 (5-15) meq/L BUN 16 (7-18) mg/dL Creatinine 0.98 (0.60-1.30) mg/dL Estimated GFR 74 L (>89) mL/min POC Glucose (68-110) mg/dl Random Glucose 96 (74-106) mg/dL Calcium 7.5 L (8.5-10.1) mg/dL Phosphorus 2.0 L (2.5-4.9) mg/dL Magnesium 2.2 (1.5-2.5) mg/dL Total Bilirubin 1.0 (0.2-1.0) mg/dL Direct Bilirubin 0.3 H (0.0-0.2) mg/dL Indirect Bilirubin 0.7 (0.0-0.8) mg/dL AST 21 (15-37) U/L ALT 12 (12-78) U/L Alkaline Phosphatase 67 (45-117) U/L Total Creatine Kinase (39-308) U/L Troponin I (0.02-0.05) ng/mL B-Natriuretic Peptide (0-100) pg/mL Total Protein 8.4 H (6.4-8.2) g/dL Albumin 2.5 L (3.4-5.0) g/dL Lipase (73-393) U/L Ur Collection Type Urine Color (Yellw/Straw) Urine Clarity (Clear) Urine pH (5.0-8.5) Ur Specific [place] (1.002-1.035) Urine Protein (Neg-Trace) mg/dL Urine Glucose (UA) (Negative) mg/dL Urine Ketones (Negative) mg/dL Urine Occult Blood (Negative) Urine Nitrate (Negative) Urine Bilirubin (Negative) Urine Urobilinogen (Less than 2) mg/dL Ur Leukocyte Esterase (Negative) Ur Squamous Epith Cells (0-5) /hpf Micro UA Comment Ur Microscopic Review Urine Culture Comments Blood Type Antibody Screen MTS Gel Crossmatch 05/18/18 Range/Units 07:40 CBC w Diff WBC (4.0-11.0) th/mm3 RBC (4.50-5.90) mil/mm3 Hgb (13.0-17.0) gm/dL Hct (39.0-51.0) % MCV (80.0-100.0) fL MCH (27.0-34.0) pg MCHC (32.0-36.0) % RDW (11.6-17.2) % Plt Count (150-450) th/mm3 MPV (7.0-11.0) fL Neut % (Auto) (16.0-70.0) % Lymph % (Auto) (9.0-44.0) % [place] % (Auto) (0.0-8.0) % Eos % (Auto) (0.0-4.0) % Baso % (Auto) (0.0-2.0) % Neut # (Auto) (1.8-7.7) th/mm3 Lymph # (Auto) (1.0-4.8) th/mm3 [place] # (Auto) (0.0-0.9) th/mm3 Eos # (Auto) (0.0-0.4) th/mm3 Baso # (Auto) (0.0-0.2) th/mm3 WBC Differential Diff Scan Seg Neuts % (Manual) (16-70) % Band Neuts % (Manual) (0-6) % Lymphocytes % (Manual) (9-44) % Monocytes % (Manual) (0-8) % Eosinophils % (Manual) (0-4) % Abs Neuts (Manual) (1.8-7.7) th/mm3 Differential Comment Platelet Estimate (Normal) Platelet Morphology (Normal) PT (9.8-11.6) sec INR Ratio APTT (23.4-31.7) sec Fibrinogen (227-377) mg/dL D-Dimer Quant (PE/DVT) (0.00-0.50) mg/L FEU Sodium (136-145) meq/L Potassium (3.5-5.1) meq/L Chloride (98-107) meq/L Carbon Dioxide (21.0-32.0) meq/L Anion Gap (5-15) meq/L BUN (7-18) mg/dL Creatinine (0.60-1.30) mg/dL Estimated GFR (>89) mL/min POC Glucose 107 (68-110) mg/dl Random Glucose (74-106) mg/dL Calcium (8.5-10.1) mg/dL Phosphorus (2.5-4.9) mg/dL Magnesium (1.5-2.5) mg/dL Total Bilirubin (0.2-1.0) mg/dL Direct Bilirubin (0.0-0.2) mg/dL Indirect Bilirubin (0.0-0.8) mg/dL AST (15-37) U/L ALT (12-78) U/L Alkaline Phosphatase (45-117) U/L Total Creatine Kinase (39-308) U/L Troponin I (0.02-0.05) ng/mL B-Natriuretic Peptide (0-100) pg/mL Total Protein (6.4-8.2) g/dL Albumin (3.4-5.0) g/dL Lipase (73-393) U/L Ur Collection Type Urine Color (Yellw/Straw) Urine Clarity (Clear) Urine pH (5.0-8.5) Ur Specific [place] (1.002-1.035) Urine Protein (Neg-Trace) mg/dL Urine Glucose (UA) (Negative) mg/dL Urine Ketones (Negative) mg/dL Urine Occult Blood (Negative) Urine Nitrate (Negative) Urine Bilirubin (Negative) Urine Urobilinogen (Less than 2) mg/dL Ur Leukocyte Esterase (Negative) Ur Squamous Epith Cells (0-5) /hpf Micro UA Comment Ur Microscopic Review Urine Culture Comments Blood Type Antibody Screen MTS Gel Crossmatch Imaging Data Radiologist's impression: Chest X-Ray 05/16/18 12:59 CONCLUSION: Left basilar opacity likely representing a small pleural effusion with associated atelectasis and/or consolidation. An abnormality was located in this area on the prior examination and could be a chronic finding versus a recurrent abnormality. Chest CTA 05/16/18 14:43 CONCLUSION: 1. No evidence of acute pulmonary emboli. 2. Left lower lobe consolidating airspace disease with associated small to moderate effusion 3. Moderate calcific coronary artery disease. Discharge Plan Discharge Disposition Patient Disposition: ED Admit(ED Internal Use Only) Discharge Order Discharge Orders: ED Use Only Admit Order (Routine); Ordered 05/16/18 Ordered By: Arvind Fischer Physicians Team ED Provider: Arvind Fischer Primary Care Provider: Nixon Mata Attending Provider: Isaiah Crocker Other Providers: Gael Barlow ; [employer] Status ED Status: Left Department Discharge Information Discharge Date/Time: 05/16/18 19:20
[2018-05-16 13:28] LABS: Chloride 105 meq/L (98-107); Potassium 3.7 meq/L (3.5-5.1); Sodium 139 meq/L (136-145)
[2018-05-16 13:31] LABS: Calcium 7.6 mg/dL (8.5-10.1)
[2018-05-16 13:32] LABS: Albumin 2.4 g/dL (3.4-5.0); Anion Gap 7 meq/L (5-15); Blood Urea Nitrogen 25 mg/dL (7-18); Carbon Dioxide 27.2 meq/L (21.0-32.0); Glucose,Random 138 mg/dL (74-106); Lipase 144 U/L (73-393)
[2018-05-16 13:35] LABS: Alanine Aminotransferase 12 U/L (12-78); Aspartate Aminotransferase 13 U/L (15-37); Glomerular Filtration Rate 65 mL/min (>89)
[2018-05-16 13:36] LABS: Total Protein 8.4 g/dL (6.4-8.2)
[2018-05-16 13:38] LABS: Alkaline Phosphatase 67 U/L (45-117)
[2018-05-16 13:42] LABS: Activated Partial Thrombo Time 30.1 sec (23.4-31.7); INR 1.1 Ratio; Prothrombin Time 11.4 sec (9.8-11.6)
[2018-05-16 13:43] LABS: Baso % (Auto) 0.2 % (0.0-2.0); Eos # (Auto) 0.2 th/mm3 (0.0-0.4); Eos % (Auto) 3.2 % (0.0-4.0); Hemoglobin 5.2 gm/dL (13.0-17.0); Lymph # (Auto) 0.8 th/mm3 (1.0-4.8); Lymph % (Auto) 13.1 % (9.0-44.0); Mean Corpuscular HGB Conc 31.8 % (32.0-36.0); Mean Corpuscular Hemoglobin 26.8 pg (27.0-34.0); Mean Corpuscular Volume 84.4 fL (80.0-100.0); Mean Platelet Volume 7.1 fL (7.0-11.0); Mono # (Auto) 0.5 th/mm3 (0.0-0.9); Mono % (Auto) 7.8 % (0.0-8.0); Neut # (Auto) 4.6 th/mm3 (1.8-7.7); Neut % (Auto) 75.7 % (16.0-70.0); Platelet Count 267 th/mm3 (150-450); Red Blood Count 1.94 mil/mm3 (4.50-5.90); Red Cell Distribution Width 17.5 % (11.6-17.2)
[2018-05-16 13:51] LABS: Hematocrit 16.3 % (39.0-51.0); White Blood Count 6.1 th/mm3 (4.0-11.0)
[2018-05-16 13:53] LABS: D-Dimer 1.27 mg/L FEU (0.00-0.50)
--- NOTE | 2018-05-16 13:53 | XR ---
EXAM DATE: 05/16/2018 1:34 PM EST AGE/SEX: 77 years / Male INDICATIONS: Hypotensive, weakness. CLINICAL DATA: This is the patient's initial encounter. Patient reports that signs and symptoms have been present for 3 days and indicates a pain score of 4/10. MEDICAL/SURGICAL HISTORY: . Hypertension. Aortic stenosis. CKD. HLD. Hypothyroid. Neuropathy. P rostate cancer. Cardiac . Cardiac catheterization CABG COMPARISON: [facility] [place], CHEST 1V SINGLE AP, 03/28/2018. . FINDINGS: Upright portable AP view of the chest demonstrates a normal-sized cardiac silhouette with calcificati on of the aorta post median sternotomy. There is a small left basilar pleural-parenchymal opacity, sl ightly increased from the prior study. No pneumothorax is visualized. The bones demonstrate no acute finding. CONCLUSION: Left basilar opacity likely representing a small pleural effusion with associated atelectasis and/or consolidation. An abnormality was located in this area on the prior examination and could be a chroni c finding versus a recurrent abnormality. Electronically signed by: Tristan Taylor MD Board Certified Radiologist 05/16/2018 1:52 PM EST
[2018-05-16] MEDS ORDERED: Pantoprazole Inj 40 MG Vial IV.PUSH ONE (14:04)
[2018-05-16 14:42] LABS: Eosinophils 2 % (0-4); Lymphocytes 9 % (9-44); Monocytes 3 % (0-8)
[2018-05-16 14:44] LABS: Platelet Estimate Normal (Normal); Platelet Morphology Normal (Normal)
[2018-05-16 15:01] LABS: Bilirubin,Urine Negative (Negative); Clarity,Urine Clear (Clear); Color,Urine Yellow (Yellw/Straw); Glucose,Urine (UA) Negative (Negative); Leukocyte Esterase,Urine Negative (Negative); Nitrite,Urine Negative (Negative)
[2018-05-16 15:12] LABS: Squamous Epithelial Cell,Urine 0-5 /hpf (0-5)
--- NOTE | 2018-05-16 15:58 | CT ---
EXAM DATE: 05/16/2018 3:41 PM EST AGE/SEX: 77 years / Male INDICATIONS: General weakness. Short of breath. CLINICAL DATA: This is the patient's initial encounter. Patient reports that signs and symptoms have been present for 1 week and indicates a pain score of 0/10. MEDICAL/SURGICAL HISTORY: Cardiovascular disease. Carcinoma, prostatic. 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 CABG. RADIATION DOSE: 20.71 CTDI (mGy) COMPARISON: No prior exams available for comparison. TECHNIQUE: Volumetric scanning was performed using a multi-row detector CT scanner during bolus infu rd of 75 ml Omnipaque 350 (iohexol) nonionic water-soluble contrast as a single exam dose. The pablo a was post processed with a variety of visualization algorithms including full volume maximum intensi ty projection and sliding thin slab reformation. Using automated exposure control and adjustment of t he mA and/or kV according to patient size, radiation dose was kept as low as reasonably achievable to obtain optimal diagnostic quality images. DICOM format image data is available electronically for r eview and comparison. FINDINGS: Pulmonary Arteries: No filling defects are seen in the pulmonary arteries out to the subsegmental ve ssels. The left and right pulmonary arteries are normal in diameter. Lung: Segmental consolidating airspace disease is identified in the left lower lobe. Right lung is c lear. Effusion: A small to moderate left pleural effusion is noted. Mediastinum: No evidence of mediastinal or hilar adenopathy. Moderate coronary artery calcification is identified. Heart is normal in size Other: The axilla is unremarkable. CONCLUSION: 1. No evidence of acute pulmonary emboli. 2. Left lower lobe consolidating airspace disease with associated small to moderate effusion 3. Moderate calcific coronary artery disease. Electronically signed by: Tam Deng MD Board Certified Radiologist 05/16/2018 3:56 PM EST
[2018-05-16] MEDS ORDERED: Dextrose 50% in Water 50 ML Vial IV.PUSH PRN (16:28)
[2018-05-16] MEDS: Sod Chloride 0.9% Inj 1,000 ML IV.CONT SCH (16:41)
[2018-05-16] MEDS: Insulin NovoLOG Aspart Correctional Sugar Inj SQ SCH ×2 (16:45→22:18)
[2018-05-16] MEDS ORDERED: LORazepam 0.5 MG Tablet PO PRN (17:00)
[2018-05-16] MEDS ORDERED: Acetaminophen 325 MG Tablet PO PRN (17:00)
[2018-05-16] MEDS ORDERED: Pantoprazole Inj 80 MG in Sodium Chlor 0.9% Inj 100 ML IV.CONT SCH (17:00)
[2018-05-16] MEDS ORDERED: Bisacodyl 10 MG Supp RECTAL PRN (17:00)
[2018-05-16] MEDS ORDERED: Melatonin 5 MG Tablet PO PRN (17:00)
--- NOTE | 2018-05-16 19:26 | P.HPIM ---
History of Present Illness Primary Care Physician: Nixon Mata MD History of Present Illness: There is 77-year-old male status post CABG x2 with SANDS to LAD, SVG to OM in March 2018 who presents with a 3-week history of progressively worsening shortness of breath with exertion, generalized fatigue, black tarry bowel movements. Patient also reports some dull chest pain with exertion over the past few weeks, however not at rest, and denies any chest pain currently. Patient otherwise has no complaints. No fevers, chills, lightheadedness, dizziness, nausea, vomiting. Inpatient Certification: I certify that the inpatient services were ordered in accordance with Medicare regulations governing the order. This includes certification that hospital inpatient services are reasonable and necessary and in the case of services not specified as inpatient-only under 42 CFR 419.22(n), that they are appropriately provided as inpatient services in accordance to with the 2-midnight benchmark under 43 CFR 412.3(e) Estimated Total Length of Stay (Days): 3 Plans for Post Hospital Care: Not yet determined Review of Systems All other systems reviewed negative except as stated in HPI PMFSH - History History Provided By: Patient - Medical History Medical History: Medical History (Last Reviewed 05/16/18 @ 19:22 by Alvino Neri MD) Presence of artificial right eye Anxiety Aortic stenosis CKD (chronic kidney disease), stage II HLD (hyperlipidemia) HTN (hypertension) Hypothyroid Neuropathy Prostate cancer Shortness of breath - Surgical History Surgical History: Surgical History (Last Reviewed 05/16/18 @ 19:22 by Alvino Neri MD) S/P CABG x 2 - Family History Family History: Family History (Last Updated 05/16/18 @ 19:22 by Alvino Neri MD) Father Anemia Other Diabetes - Tobacco History Second Hand Smoke Exposure: No Tobacco Use In Past 30 Days: No (QUIT JUN 2008) Smoking Status: Former smoker Tobacco Type: Cigarettes - Alcohol History How Often Do You Have a Drink Containing Alcohol: Monthly or less - Substance Use History Substance History: No History of Abuse - Travel History Recent Travel in the [place] Within the Last 8 Weeks: No Recent Travel Out of the Country Within the Last 8 Weeks: No - Immunization History Tetanus Immunization: >5 Years Medications and Allergies Active Medications: Active Medications Acetaminophen (Tylenol) 650 mg PO Q4H PRN PRN Reason: Temp > 100.4 Al Hydroxide/Mg Hydroxide (Milk Of Magnesia Liq) 30 ml PO Q12H PRN PRN Reason: Mild Constipation Amitriptyline HCl (Elavil) 25 mg PO HS [facility] [place] Aspirin (Aspirin Chew) 81 mg PO DAILY [facility] [place] Atorvastatin Calcium (Lipitor) 80 mg PO QPM [facility] [place] Bisacodyl (Dulcolax Supp) 10 mg RECTAL DAILY PRN PRN Reason: SEVERE CONSITIPATION Brimonidine Tartrate (Alphagan 0.2% Opth Drops) 1 drops EACH EYE TID [facility] [place] Dextrose (D50w Vial) 50 ml IV.PUSH UNSCH PRN PRN Reason: PER HYPOGLYCEMIA PROTOCOL Furosemide (Lasix) 40 mg PO DAILY [facility] [place] Glucagon (Glucagon Inj) 1 mg OTHER PRN PRN PRN Reason: for Hypoglycemia Protocol Sodium Chloride (Ns Inj) 1,000 mls @ 50 mls/hr IV.CONT .Q20H [facility] [place] Last Infusion: 05/16/18 17:04 Dose: 0 mls/hr Pantoprazole Sodium 80 mg/ (Sodium Chloride) 100 mls @ 10 mls/hr IV.CONT CONT [facility] [place] Insulin Aspart (Novolog Insulin Correctional Sugar Inj) 0 unit SQ ACHS [facility] [place]; Protocol Last Admin: 05/16/18 16:45 Dose: Not Given Lactulose (Lactulose Liq) 30 ml PO DAILY PRN PRN Reason: SEVERE CONSITIPATION Latanoprost (Xalatan 0.005% Opth Drops) 1 drop EACH EYE QPM [facility] [place] Levothyroxine Sodium (Synthroid) 150 mcg PO DAILY@0600 [facility] [place] Lorazepam (Ativan) 0.5 mg PO BID PRN PRN Reason: Anxiety Melatonin (Melatonin) 10 mg PO HS PRN PRN Reason: Sleep Metoprolol Tartrate (Lopressor) 50 mg PO BID [facility] [place] Ondansetron HCl (Zofran Inj) 4 mg IV.PUSH Q6H PRN PRN Reason: NAUSEA OR VOMITING Sennosides (Senokot) 17.2 mg PO Q12H PRN PRN Reason: Moderate Constipation Sodium Chloride (Ns Flush) 2 ml IV.FLUSH BID [facility] [place] Sodium Chloride (Ns Flush) 2 ml IV.FLUSH PRN PRN PRN Reason: FLUSH AFTER USING IV ACCESS Sodium Chloride (Ns Flush) 2 ml IV.FLUSH BID [facility] [place] Sodium Chloride (Ns Flush) 2 ml IV.FLUSH PRN PRN PRN Reason: FLUSH AFTER USING IV ACCESS Timolol Maleate (Timoptic 0.5% Drops) 1 drops LEFT EYE BID EVANGELISTA Allergies Allergy/AdvReac Type Severity Reaction Status Date / Time enalapril AdvReac Intermediate Cough Verified 05/16/18 12:42 Home Medications Medication Instructions Recorded Confirmed Type alendronate 70 mg PO QWEEK 03/20/18 05/16/18 History brimonidine 1 drp OPHTHALMIC (EYE) TID 03/20/18 05/16/18 History glipizide 5 mg PO DAILY 03/20/18 05/16/18 History latanoprost 1 drp OPHTHALMIC (EYE) QPM 03/20/18 05/16/18 History levothyroxine 150 mcg PO DAILY 03/20/18 05/16/18 History lorazepam 1 tab PO BID PRN 03/20/18 05/16/18 History metformin 500 mg PO BID 03/20/18 05/16/18 History metoprolol tartrate 50 mg PO BID 03/20/18 05/16/18 History omega-3 fatty acids-fish oil [Fish 1 cap PO DAILY 03/20/18 05/16/18 History Oil] docusate sodium [DOK] 100 mg PO DAILY 04/26/18 05/16/18 History amitriptyline 25 mg PO HS 05/16/18 05/16/18 History atorvastatin 80 mg PO QPM 05/16/18 05/16/18 History melatonin 10 mg PO HS PRN 05/16/18 05/16/18 History ondansetron HCl [Zofran] 8 mg PO TID PRN 05/16/18 05/16/18 History Exam Vital signs: Vital Signs 05/16/18 12:35 05/16/18 14:03 05/16/18 16:06 Temperature 98.8 F Pulse Rate 106 H 100 H 91 H Respiratory Rate 18 24 22 Blood Pressure 116/58 L 131/61 126/56 L Pulse Oximetry 95 97 98 05/16/18 16:57 05/16/18 17:16 05/16/18 19:05 Temperature 98.4 F 98.1 F 98.5 F Pulse Rate 97 H 98 H 99 H Respiratory Rate 24 24 22 Blood Pressure 126/56 L 132/67 139/75 Pulse Oximetry Intake & Output 05/16/18 05/16/18 05/17/18 06:59 18:59 06:59 Intake Total 0 / 0 400 / 400 Output Total 100 / 100 Balance -100 / -100 400 / 400 Weight 84.8 kg Intake: Intake (Blood Product) Amt 0 / 0 400 / 400 Rbc As-3 Leukoreduced Unit 0 / 0 400 / 400 [id number] Output: Urine 100 / 100 Other: # Voids 1 Narrative: GENERAL: Patient sitting up in bed. Appears pale but comfortable. Alert and oriented x3. SKIN: Warm and dry. HEAD: Atraumatic. Normocephalic. EYES: Patient with a right ocular prosthesis. Left pupil responsive to light. No scleral icterus. No injection or drainage. ENT: No nasal bleeding or discharge. Mucous membranes pink and moist. NECK: Trachea midline. No JVD. CARDIOVASCULAR: Regular rate and rhythm. RESPIRATORY: No accessory muscle use. Clear to auscultation. Breath sounds equal bilaterally. CABG incision healed well. GASTROINTESTINAL: Abdomen soft, non-tender, nondistended. Hepatic and splenic margins not palpable. MUSCULOSKELETAL: Extremities without clubbing, cyanosis, or edema. No obvious deformities. NEUROLOGICAL: Awake and alert. No obvious cranial nerve deficits. Motor grossly within normal limits. Five out of 5 muscle strength in the arms and legs. Normal speech. PSYCHIATRIC: Appropriate mood and affect; insight and judgment normal. Results - Labs CBC & Chem 7: 05/16/18 13:05 05/16/18 13:05 Labs: Short CBC 05/16/18 Range/Units 13:05 WBC 6.1 (4.0-11.0) th/mm3 Hgb 5.2 L* (13.0-17.0) gm/dL Hct 16.3 L* (39.0-51.0) % Plt Count 267 (150-450) th/mm3 BMP 05/16/18 13:05 Sodium 139 Potassium 3.7 Chloride 105 Carbon Dioxide 27.2 BUN 25 H Creatinine 1.10 Calcium 7.6 L Cardiac Enzymes 05/16/18 05/16/18 Range/Units 13:05 13:05 Total Creatine Kinase 48 (39-308) U/L Troponin I Less than 0.02 L (0.02-0.05) ng/mL Liver Function 05/16/18 Range/Units 13:05 Total Bilirubin 0.2 (0.2-1.0) mg/dL AST 13 L (15-37) U/L ALT 12 (12-78) U/L Alkaline Phosphatase 67 (45-117) U/L Albumin 2.4 L (3.4-5.0) g/dL Urine 05/16/18 Range/Units 01:45 Urine Color Yellow (Yellw/Straw) Urine Clarity Clear (Clear) Urine pH 6.0 (5.0-8.5) Ur Specific [place] 1.010 (1.002-1.035) Urine Protein Negative (Neg-Trace) mg/dL Urine Glucose (UA) Negative (Negative) mg/dL - Imaging Impressions Chest X-Ray 05/16/18 12:59 CONCLUSION: Left basilar opacity likely representing a small pleural effusion with associated atelectasis and/or consolidation. An abnormality was located in this area on the prior examination and could be a chronic finding versus a recurrent abnormality. Chest CTA 05/16/18 14:43 CONCLUSION: 1. No evidence of acute pulmonary emboli. 2. Left lower lobe consolidating airspace disease with associated small to moderate effusion 3. Moderate calcific coronary artery disease. Caprini VTE Risk Assessment Caprini VTE Risk Assessment: Moderate/High Risk (score >= 2) Caprini Risk Assessment Model: Point Value = 1 Point Value = 2 Point Value = 3 Point Value = 5 Age 41-60 Minor surgery BMI > 25 kg/m2 Swollen legs Varicose veins or History of unexplained or recurrent spontaneous Oral contraceptives or hormone replacement Sepsis (< 1 month) Serious lung disease, including pneumonia (< 1 month) Abnormal pulmonary function Acute myocardial infarction Congestive heart failure (< 1 month) History of inflammatory bowel disease Medical patient at bed rest Age 61-74 Arthroscopic surgery Major open surgery (> 45 min) Laparoscopic surgery (> 45 min) Malignancy Confined to bed (> 72 hours) Immobilizing plaster cast Central venous access Age >= 75 History of VTE Family history of VTE Factor V Leiden Prothrombin [id number] Lupus anticoagulant Anticardiolipin antibodies Elevated serum homocysteine Heparin-induced thrombocytopenia Other congenital or acquired thrombophilia Stroke (< 1 month) Elective arthroplasty Hip, pelvis, or leg fracture Acute spinal cord injury (< 1 month) Prophylaxis Regimen: Total Risk Factor Score Risk Level Prophylaxis Regimen 0-1 Low Early ambulation 2 Moderate Order ONE of the following: *Sequential Compression Device (SCD) *Heparin 5000 units SQ BID 3-4 Higher Order ONE of the following medications: *Heparin 5000 units SQ TID *Enoxaparin/Lovenox 40 mg SQ daily (WT < 150 kg, CrCl > 30 mL/min) *Enoxaparin/Lovenox 30 mg SQ daily (WT < 150 kg, CrCl > 10-29 mL/min) *Enoxaparin/Lovenox 30 mg SQ BID (WT < 150 kg, CrCl > 30 mL/min) AND/OR *Sequential Compression Device (SCD) 5 or more Highest Order ONE of the following medications: *Heparin 5000 units SQ TID (Preferred with Epidurals) *Enoxaparin/Lovenox 40 mg SQ daily (WT < 150 kg, CrCl > 30 mL/min) *Enoxaparin/Lovenox 30 mg SQ daily (WT < 150 kg, CrCl > 10-29 mL/min) *Enoxaparin/Lovenox 30 mg SQ BID (WT < 150 kg, CrCl > 30 mL/min) AND *Sequential Compression Device (SCD) Assessment and Plan - Plan //Acute upper GI bleeding //Acute symptomatic anemia on top of chronic -Hemoglobin 5.2 from baseline of around 8. -We will consult gastroenterology. Hold Plavix for now but continue aspirin due to recent CABG in March. -Transfused 2 units PRBCs and monitor hemoglobin every 8 hours. -Placed on Protonix drip Patient is n.p.o. Agreeable to endoscopy. Follow-up gastroenterology recommendations. //Coronary artery disease //s/ post CABG x2 in March 2018. //Exertional chest pain over the past week Exertional angina is likely demand related secondary to severe anemia. -Community Health Educator is Dr. Harry Hernandez, surgeon is Dr. spicer -Troponin less than 0.02. Patient with no active chest pain -Recent echo with preserved ejection fraction, mild valvular disorder December 2017. -Continue beta-angélica, Lasix -Due to GI bleed. We will hold Plavix, continue aspirin //Diabetes mellitus. Insulin sliding scale. Patient will be n.p.o. for procedure //Left lower lobe consolidating airspace disease with small to moderate effusion -No signs of pneumonia currently. Is likely elected secondary to effusion status post surgery. Will order incentive spirometry and Acapella. Will discuss with cardiothoracic surgery tomorrow. //Hypothyroidism. Chronic. Continue home medication. Discussed Condition With: She, nurse, ED physician.
[2018-05-16] MEDS: Timolol 0.5% Drops 5 ML Bottle LEFT EYE SCH (22:16)
[2018-05-16] MEDS: Latanoprost 0.005% Opth Drops 2.5 ML Bottle EACH EYE SCH (22:17)
[2018-05-16] MEDS: Brimonidine 0.2% Opth Drops 5 ML Bottle EACH EYE SCH (22:17)
[2018-05-16] MEDS: Amitriptyline 25 MG Tablet PO SCH (22:17)
[2018-05-16] MEDS: Metoprolol Tartrate 50 MG Tablet PO SCH (22:20)
[2018-05-17] MEDS: Pantoprazole Inj 80 MG in Sodium Chlor 0.9% Inj 100 ML IV.CONT SCH ×3 (00:36→22:36)
[2018-05-17] MEDS: Levothyroxine 150 MCG Tablet PO SCH (06:24)
[2018-05-17 06:26] LABS: Chloride 106 meq/L (98-107); Potassium 3.8 meq/L (3.5-5.1); Sodium 139 meq/L (136-145)
[2018-05-17] MEDS: Timolol 0.5% Drops 5 ML Bottle LEFT EYE SCH ×3 (06:27→22:40)
[2018-05-17] MEDS: Sod Chloride 0.9% Inj 1,000 ML IV.CONT SCH (06:31)
[2018-05-17 06:33] LABS: Calcium 7.5 mg/dL (8.5-10.1)
[2018-05-17 06:34] LABS: Albumin 2.5 g/dL (3.4-5.0); Anion Gap 6 meq/L (5-15); Blood Urea Nitrogen 19 mg/dL (7-18); Glucose,Random 96 mg/dL (74-106)
[2018-05-17 06:37] LABS: Alanine Aminotransferase 12 U/L (12-78); Aspartate Aminotransferase 11 U/L (15-37); Glomerular Filtration Rate 72 mL/min (>89)
[2018-05-17 06:38] LABS: Total Protein 8.4 g/dL (6.4-8.2)
[2018-05-17 06:40] LABS: Alkaline Phosphatase 66 U/L (45-117)
[2018-05-17 06:43] LABS: Baso % (Auto) 0.3 % (0.0-2.0); Eos # (Auto) 0.2 th/mm3 (0.0-0.4); Eos % (Auto) 2.9 % (0.0-4.0); Lymph # (Auto) 1.1 th/mm3 (1.0-4.8); Lymph % (Auto) 16.1 % (9.0-44.0); Mean Corpuscular Hemoglobin 26.7 pg (27.0-34.0); Mean Corpuscular Volume 83.6 fL (80.0-100.0); Mean Platelet Volume 6.9 fL (7.0-11.0); Mono # (Auto) 0.6 th/mm3 (0.0-0.9); Mono % (Auto) 9.1 % (0.0-8.0); Neut # (Auto) 4.7 th/mm3 (1.8-7.7); Neut % (Auto) 71.6 % (16.0-70.0); Platelet Count 272 th/mm3 (150-450); Red Blood Count 2.41 mil/mm3 (4.50-5.90); Red Cell Distribution Width 16.3 % (11.6-17.2); White Blood Count 6.6 th/mm3 (4.0-11.0)
[2018-05-17 06:56] LABS: Hematocrit 20.1 % (39.0-51.0); Hemoglobin 6.4 gm/dL (13.0-17.0)
[2018-05-17] MEDS ORDERED: Sodium Chlor 0.9% Inj 250 ML IV.SIG SCH ×2 (07:00→11:00)
[2018-05-17] MEDS: Insulin NovoLOG Aspart Correctional Sugar Inj SQ SCH ×4 (08:44→21:50)
[2018-05-17] MEDS: Brimonidine 0.2% Opth Drops 5 ML Bottle EACH EYE SCH ×3 (09:19→21:13)
[2018-05-17] MEDS: Metoprolol Tartrate 50 MG Tablet PO SCH ×2 (09:23→21:49)
[2018-05-17] MEDS: Furosemide 40 MG Tablet PO SCH (09:23)
--- NOTE | 2018-05-17 13:15 | P.PNIM ---
Subjective Interval history: Patient says he is feeling right today. Denies any chest pain shortness of breath. Denies any nausea or vomiting. denies cough. Family at bedside Physical Exam Vital signs: Vital Signs 05/16/18 14:03 05/16/18 16:06 05/16/18 16:57 Temperature 98.4 F Pulse Rate 100 H 91 H 97 H Respiratory Rate 24 22 24 Blood Pressure 131/61 126/56 L 126/56 L Pulse Oximetry 97 98 05/16/18 17:16 05/16/18 19:05 05/16/18 20:00 Temperature 98.1 F 98.5 F 97.9 F Pulse Rate 98 H 99 H 99 H Respiratory Rate 24 22 20 Blood Pressure 132/67 139/75 150/69 H Pulse Oximetry 98 05/16/18 20:54 05/16/18 21:22 05/16/18 21:26 Temperature 97.9 F 97.9 F Pulse Rate 99 H 99 H Respiratory Rate 20 20 Blood Pressure 150/69 H 150/69 H Pulse Oximetry 97 05/16/18 21:59 05/17/18 00:00 05/17/18 00:22 Temperature 95.3 F L 96.0 F L 96.0 F L Pulse Rate 98 H 79 78 Respiratory Rate 20 20 20 Blood Pressure 148/72 H 110/58 L 110/50 L Pulse Oximetry 98 05/17/18 00:24 05/17/18 08:00 05/17/18 09:09 Temperature 96.0 F L 96.8 F L 97.0 F L Pulse Rate 79 91 H 87 Respiratory Rate 20 20 18 Blood Pressure 110/50 L 123/86 128/64 Pulse Oximetry 98 05/17/18 09:33 05/17/18 12:15 05/17/18 12:41 Temperature 97.1 F L 96.9 F L 97 F L Pulse Rate 89 86 83 Respiratory Rate 19 18 Blood Pressure 148/70 H 125/60 142/70 H Pulse Oximetry 98 100 05/17/18 12:43 Temperature 97 F L Pulse Rate 82 Respiratory Rate 18 Blood Pressure 142/70 H Pulse Oximetry Intake & Output 05/16/18 05/17/18 05/17/18 18:59 06:59 18:59 Intake Total 0 / 0 1800 / 1800 500 / 500 Output Total 100 / 100 300 / 300 Balance -100 / -100 1500 / 1500 500 / 500 Weight 84.8 kg 84.5 kg Intake: IV 1000 / 1000 100 / 100 Protonix Inj 80 MG In NS Inj 100 / 100 100 ML @ 10 mls/hr IV.CONT Q10H [facility] Rx#:[id number] NS Inj 1,000 ML @ 50 mls/hr IV. 1000 / 1000 CONT .Q20H [facility] Rx#:[id number] Oral 50 / 50 Intake (Blood Product) Amt 0 / 0 750 / 750 400 / 400 Rbc As-3 Leukoreduced Unit 0 / 0 [id number] Rbc As-3 Leukoreduced Unit 0 / 0 400 / 400 [id number] Rbc As-3 Leukoreduced Unit 400 / 400 [id number] Rbc As-3 Leukoreduced Unit 350 / 350 [id number] Output: Urine 100 / 100 300 / 300 Other: # Voids 1 200 1 Date of Last Bowel Movement 05/16/18 Weight On Admission 84.8 kg Narrative: GENERAL: Patient sitting up in chair at bedside. Appears comfortable. SKIN: Warm and dry. HEAD: Normocephalic. EYES: No scleral icterus. No injection or drainage. NECK: Supple, trachea midline. No JVD. CARDIOVASCULAR: Regular rate and rhythm without murmurs, gallops, or rubs. RESPIRATORY: Breath sounds equal bilaterally. No accessory muscle use. GASTROINTESTINAL: Abdomen soft, non-tender, nondistended. MUSCULOSKELETAL: No cyanosis, or edema. BACK: Nontender without obvious deformity. No CVA tenderness. Results - Labs CBC & Chem 7: 05/17/18 05:00 05/17/18 05:00 Laboratory Results - last 24 hr 05/16/18 05/16/18 05/16/18 01:45 13:05 13:05 CBC w Diff Slide review pending WBC 6.1 RBC 1.94 L Hgb 5.2 L* Hct 16.3 L* MCV 84.4 MCH 26.8 L MCHC 31.8 L RDW 17.5 H Plt Count 267 MPV 7.1 Neut % (Auto) 75.7 H Lymph % (Auto) 13.1 [place] % (Auto) 7.8 Eos % (Auto) 3.2 Baso % (Auto) 0.2 Neut # (Auto) 4.6 Lymph # (Auto) 0.8 L [place] # (Auto) 0.5 Eos # (Auto) 0.2 Baso # (Auto) 0.0 WBC Differential Manual diff final Diff Scan Seg Neuts % (Manual) 85 H Band Neuts % (Manual) 1 Lymphocytes % (Manual) 9 Monocytes % (Manual) 3 Eosinophils % (Manual) 2 Abs Neuts (Manual) 5.2 Differential Comment . Platelet Estimate Normal Platelet Morphology Normal PT 11.4 INR 1.1 APTT 30.1 D-Dimer Quant (PE/DVT) 1.27 H Sodium Potassium Chloride Carbon Dioxide Anion Gap BUN Creatinine Estimated GFR POC Glucose Random Glucose Calcium Total Bilirubin AST ALT Alkaline Phosphatase Total Creatine Kinase Troponin I B-Natriuretic Peptide Total Protein Albumin Lipase Ur Collection Type Clean catch Urine Color Yellow Urine Clarity Clear Urine pH 6.0 Ur Specific [place] 1.010 Urine Protein Negative Urine Glucose (UA) Negative Urine Ketones Negative Urine Occult Blood Negative Urine Nitrate Negative Urine Bilirubin Negative Urine Urobilinogen 1.0 Ur Leukocyte Esterase Negative Ur Squamous Epith Cells 0-5 Micro UA Comment Culture not ind Ur Microscopic Review Microscopic reviewed Urine Culture Comments Culture not ind Blood Type Antibody Screen MTS Gel Crossmatch 05/16/18 05/16/18 05/16/18 13:05 13:05 13:05 CBC w Diff WBC RBC Hgb Hct MCV MCH MCHC RDW Plt Count MPV Neut % (Auto) Lymph % (Auto) [place] % (Auto) Eos % (Auto) Baso % (Auto) Neut # (Auto) Lymph # (Auto) [place] # (Auto) Eos # (Auto) Baso # (Auto) WBC Differential Diff Scan Seg Neuts % (Manual) Band Neuts % (Manual) Lymphocytes % (Manual) Monocytes % (Manual) Eosinophils % (Manual) Abs Neuts (Manual) Differential Comment Platelet Estimate Platelet Morphology PT INR APTT D-Dimer Quant (PE/DVT) Sodium 139 Potassium 3.7 Chloride 105 Carbon Dioxide 27.2 Anion Gap 7 BUN 25 H Creatinine 1.10 Estimated GFR 65 L POC Glucose Random Glucose 138 H Calcium 7.6 L Total Bilirubin 0.2 AST 13 L ALT 12 Alkaline Phosphatase 67 Total Creatine Kinase 48 Troponin I Less than 0.02 L B-Natriuretic Peptide 114 H Total Protein 8.4 H Albumin 2.4 L Lipase 144 Ur Collection Type Urine Color Urine Clarity Urine pH Ur Specific [place] Urine Protein Urine Glucose (UA) Urine Ketones Urine Occult Blood Urine Nitrate Urine Bilirubin Urine Urobilinogen Ur Leukocyte Esterase Ur Squamous Epith Cells Micro UA Comment Ur Microscopic Review Urine Culture Comments Blood Type Antibody Screen MTS Gel Crossmatch 05/16/18 05/16/18 05/16/18 13:05 16:44 22:09 CBC w Diff WBC RBC Hgb Hct MCV MCH MCHC RDW Plt Count MPV Neut % (Auto) Lymph % (Auto) [place] % (Auto) Eos % (Auto) Baso % (Auto) Neut # (Auto) Lymph # (Auto) [place] # (Auto) Eos # (Auto) Baso # (Auto) WBC Differential Diff Scan Seg Neuts % (Manual) Band Neuts % (Manual) Lymphocytes % (Manual) Monocytes % (Manual) Eosinophils % (Manual) Abs Neuts (Manual) Differential Comment Platelet Estimate Platelet Morphology PT INR APTT D-Dimer Quant (PE/DVT) Sodium Potassium Chloride Carbon Dioxide Anion Gap BUN Creatinine Estimated GFR POC Glucose 118 H 116 H Random Glucose Calcium Total Bilirubin AST ALT Alkaline Phosphatase Total Creatine Kinase Troponin I B-Natriuretic Peptide Total Protein Albumin Lipase Ur Collection Type Urine Color Urine Clarity Urine pH Ur Specific [place] Urine Protein Urine Glucose (UA) Urine Ketones Urine Occult Blood Urine Nitrate Urine Bilirubin Urine Urobilinogen Ur Leukocyte Esterase Ur Squamous Epith Cells Micro UA Comment Ur Microscopic Review Urine Culture Comments Blood Type A Positive Antibody Screen Negative MTS Gel Crossmatch See Detail 05/17/18 05/17/18 05/17/18 03:00 05:00 05:00 CBC w Diff Slide review pending WBC 6.6 RBC 2.41 L Hgb 6.5 L* 6.4 L* Hct 20.1 L* MCV 83.6 MCH 26.7 L MCHC 32.0 RDW 16.3 Plt Count 272 MPV 6.9 L Neut % (Auto) 71.6 H Lymph % (Auto) 16.1 [place] % (Auto) 9.1 H Eos % (Auto) 2.9 Baso % (Auto) 0.3 Neut # (Auto) 4.7 Lymph # (Auto) 1.1 [place] # (Auto) 0.6 Eos # (Auto) 0.2 Baso # (Auto) 0.0 WBC Differential . Diff Scan Auto diff confirmed Seg Neuts % (Manual) Band Neuts % (Manual) Lymphocytes % (Manual) Monocytes % (Manual) Eosinophils % (Manual) Abs Neuts (Manual) Differential Comment . Platelet Estimate Platelet Morphology PT INR APTT D-Dimer Quant (PE/DVT) Sodium 139 Potassium 3.8 Chloride 106 Carbon Dioxide 27.0 Anion Gap 6 BUN 19 H Creatinine 1.00 Estimated GFR 72 L POC Glucose Random Glucose 96 Calcium 7.5 L Total Bilirubin 1.0 AST 11 L ALT 12 Alkaline Phosphatase 66 Total Creatine Kinase Troponin I B-Natriuretic Peptide Total Protein 8.4 H Albumin 2.5 L Lipase Ur Collection Type Urine Color Urine Clarity Urine pH Ur Specific [place] Urine Protein Urine Glucose (UA) Urine Ketones Urine Occult Blood Urine Nitrate Urine Bilirubin Urine Urobilinogen Ur Leukocyte Esterase Ur Squamous Epith Cells Micro UA Comment Ur Microscopic Review Urine Culture Comments Blood Type Antibody Screen MTS Gel Crossmatch 05/17/18 05/17/18 05/17/18 06:57 07:08 10:02 CBC w Diff WBC RBC Hgb Hct MCV MCH MCHC RDW Plt Count MPV Neut % (Auto) Lymph % (Auto) [place] % (Auto) Eos % (Auto) Baso % (Auto) Neut # (Auto) Lymph # (Auto) [place] # (Auto) Eos # (Auto) Baso # (Auto) WBC Differential Diff Scan Seg Neuts % (Manual) Band Neuts % (Manual) Lymphocytes % (Manual) Monocytes % (Manual) Eosinophils % (Manual) Abs Neuts (Manual) Differential Comment Platelet Estimate Platelet Morphology PT INR APTT D-Dimer Quant (PE/DVT) Sodium Potassium Chloride Carbon Dioxide Anion Gap BUN Creatinine Estimated GFR POC Glucose 114 H Random Glucose Calcium Total Bilirubin AST ALT Alkaline Phosphatase Total Creatine Kinase Troponin I B-Natriuretic Peptide Total Protein Albumin Lipase Ur Collection Type Urine Color Urine Clarity Urine pH Ur Specific [place] Urine Protein Urine Glucose (UA) Urine Ketones Urine Occult Blood Urine Nitrate Urine Bilirubin Urine Urobilinogen Ur Leukocyte Esterase Ur Squamous Epith Cells Micro UA Comment Ur Microscopic Review Urine Culture Comments Blood Type Antibody Screen MTS Gel Crossmatch See Detail See Detail 05/17/18 11:48 CBC w Diff WBC RBC Hgb Hct MCV MCH MCHC RDW Plt Count MPV Neut % (Auto) Lymph % (Auto) [place] % (Auto) Eos % (Auto) Baso % (Auto) Neut # (Auto) Lymph # (Auto) [place] # (Auto) Eos # (Auto) Baso # (Auto) WBC Differential Diff Scan Seg Neuts % (Manual) Band Neuts % (Manual) Lymphocytes % (Manual) Monocytes % (Manual) Eosinophils % (Manual) Abs Neuts (Manual) Differential Comment Platelet Estimate Platelet Morphology PT INR APTT D-Dimer Quant (PE/DVT) Sodium Potassium Chloride Carbon Dioxide Anion Gap BUN Creatinine Estimated GFR POC Glucose 110 Random Glucose Calcium Total Bilirubin AST ALT Alkaline Phosphatase Total Creatine Kinase Troponin I B-Natriuretic Peptide Total Protein Albumin Lipase Ur Collection Type Urine Color Urine Clarity Urine pH Ur Specific [place] Urine Protein Urine Glucose (UA) Urine Ketones Urine Occult Blood Urine Nitrate Urine Bilirubin Urine Urobilinogen Ur Leukocyte Esterase Ur Squamous Epith Cells Micro UA Comment Ur Microscopic Review Urine Culture Comments Blood Type Antibody Screen MTS Gel Crossmatch - Imaging Impressions Chest X-Ray 05/16/18 12:59 CONCLUSION: Left basilar opacity likely representing a small pleural effusion with associated atelectasis and/or consolidation. An abnormality was located in this area on the prior examination and could be a chronic finding versus a recurrent abnormality. Chest CTA 05/16/18 14:43 CONCLUSION: 1. No evidence of acute pulmonary emboli. 2. Left lower lobe consolidating airspace disease with associated small to moderate effusion 3. Moderate calcific coronary artery disease. Assessment and Plan - Plan //Acute upper GI bleeding //Acute symptomatic anemia on top of chronic -Hemoglobin 5.2 from baseline of around 8. -We will consult gastroenterology. Hold Plavix for now but continue aspirin due to recent CABG in March. -Transfused 2 units PRBCs and monitor hemoglobin every 8 hours. -Placed on Protonix drip Patient is n.p.o. Agreeable to endoscopy. Follow-up gastroenterology recommendations. = Hemoglobin inappropriate increase after 2 units of PRBCs, down to 6.4. Will order 3 units PRBCs. Monitoring of hemoglobin every 8 hours. Follow-up GI recommendations. //Coronary artery disease //s/ post CABG x2 in March 2018. //Exertional chest pain over the past week Exertional angina is likely demand related secondary to severe anemia. -Business Management Associate is Dr. Harry Hernandez, surgeon is Dr. spicer -Troponin less than 0.02. Patient with no active chest pain -Recent echo with preserved ejection fraction, mild valvular disorder December 2017. -Continue beta-angélica, Lasix -Due to GI bleed. We will hold Plavix, continue aspirin = 05/17. Due to inappropriate rise in hemoglobin, will hold aspirin and Plavix at this time. //Diabetes mellitus. Insulin sliding scale. Patient will be n.p.o. for procedure //Left lower lobe consolidating airspace disease with small to moderate effusion -No signs of pneumonia currently. Is likely elected secondary to effusion status post surgery. Will order incentive spirometry and Acapella. -Not unusual to have a left-sided effusion following CABG. Patient does not clinically have pneumonia. We will continue to monitor. //Hypothyroidism. Chronic. Continue home medication. Discussed Condition With: Patient, nurse, at bedside Discharge Planning: Pending endoscopy We will need stable hemoglobin. Hopefully home in the next few days.
--- NOTE | 2018-05-17 15:34 | GIPROC ---
[address], [address] EGD PROCEDURE REPORT EXAM DATE: 05/17/2018 PATIENT NAME: Devyn Lambert MR #: [id number] BIRTHDATE: 1940 ATTENDING: Willie Benavides MD ORDER #: [id number] [place] EXPERT: Amelia Sierra and Latoya Call STATUS: inpatient INDICATIONS: The patient is a 77 yr old male here for an EGD due to acute post hemorrhagic anemia and iron deficiency anemia PROCEDURE PERFORMED: EGD, diagnostic MEDICATIONS: None and Per Anesthesia. TOPICAL ANESTHETIC: CONSENT: The patient understands the risks and benefits of the procedure and understands that these risks include, but are not limited to: sedation, allergic reaction, infection, perforation and/or bleeding. Alternative means of evaluation and treatment include, among others: physical exam, x-rays, and/or surgical intervention. The patient elects to proceed with this endoscopic procedure. medical equipment was checked for proper function. Hand hygiene and appropriate measures for infection prevention was taken. After the risks, benefits and alternatives of the procedure were thoroughly explained, Informed consent was verified, confirmed and timeout was successfully executed by the treatment team. The patient was anesthetized with topical anesthesia and the Pentax [id number] endoscope was introduced through the mouth and advanced to the second portion of the duodenum. Retroflexed views revealed no abnormalities The gastroscope was then slowly withdrawn and removed. ESOPHAGUS: The mucosa of the esophagus appeared normal. STOMACH: There was mild antral gastropathy noted. There was erythematous moderate gastritis in the gastric antrum. DUODENUM: The duodenal mucosa appeared normal in the bulb and second portion of the duodenum. ADVERSE EVENTS: There were no complications. IMPRESSIONS: 1. The esophagus appeared normal 2. There was mild antral gastropathy noted [T2] 3. There was erythematous gastritis in the gastric antrum 4. Normal duodenal mucosa in the bulb and second portion of the duodenum 5. Retroflexed views revealed no abnormalities RECOMMENDATIONS: 1. Anti-reflux regimen 2. Continue PPI 3. Colonoscopy PATIENT CONDITION: stable DISPOSITION: Inpatient REPEAT EXAM: Return as needed for EGD Willie Benavides MD eSigned: Willie Benavides MD 05/17/2018 3:34 PM cc: PATIENT NAME: Devyn Lambert MR#: [id number]
[2018-05-17] MEDS ORDERED: Chlorhexidine Gluconate 2% 1 Pack (2 Cloths) TOPICAL ONE (15:36)
[2018-05-17] MEDS ORDERED: Sodium Chlor 0.9% Inj 500 ML IV.SIG SCH (16:00)
--- NOTE | 2018-05-17 16:51 | MB ---
cc: Willie Benavides MD,Alvino Jordan, DATE: 05/17/[address] Jordan. REASON FOR CONSULTATION: Melena with anemia. HISTORY OF PRESENT ILLNESS: Mr. Lambert is a 77-year-old gentleman who recently had a CABG surgery done and is currently on Plavix and aspirin. This was done about 3-4 weeks ago. He basically presents with black tarry stools, generalized fatigue, and malaise. He has also been having some dull chest pain on and off for some time. PAST MEDICAL HISTORY: Significant for artificial right eye, aortic stenosis, anxiety disorder, chronic kidney disease, hypertension, hyperlipidemia, hypothyroidism, history of prostate cancer. PAST SURGICAL HISTORY: Coronary artery bypass graft surgery, the most recent one done in March of last year. FAMILY HISTORY: Noncontributory. SOCIAL HISTORY: No tobacco, no alcohol at this time. PHYSICAL EXAMINATION: GENERAL: An elderly man in no apparent distress. VITAL SIGNS: Stable. HEAD AND NECK: Anicteric sclerae. LUNGS: Bilateral air entry with rales. ABDOMEN: Soft, nontender. No hepatosplenomegaly. Bowel sounds are present. CENTRAL NERVOUS SYSTEM: Nonfocal. RECTAL: Deferred at this time. ALLERGIES: ENALAPRIL. MEDICINES ON ADMISSION: 1. Alendronate. 2. Glipizide. 3. Levothyroxine. 4. Lorazepam. 5. Metformin. 6. Metoprolol. 7. [place]-3. 8. Amitriptyline. 9. Atorvastatin. 10. Melatonin 11. Zofran. LABORATORY DATA: Current labs reveal hemoglobin of 6.4, MCV of 83.6. INR is 1.1. Creatinine is 1. IMPRESSION: Melena and anemia. RECOMMENDATIONS: EGD planned for today. Plavix and aspirin are on hold. Protonix 40 mg daily. Further recommendations to follow. Transfuse as necessary. Willie Benavides MD HZ/ts , 04:15 PM , 04:21 PM
[2018-05-17] MEDS ORDERED: PEG 3350/E-Lyte Soln 4000 ML Bottle PO ONE (17:00)
--- NOTE | 2018-05-17 17:55 | ECG ---
Date Performed: 05/16/2018 Time Performed: 13:40:55 PTAGE: 77 years EKG: SINUS TACHYCARDIA LOW QRS VOLTAGE IN PRECORDIAL LEADS Compared to previous tracing, sinus r ate is faster ABNORMAL RHYTHM ECG PREVIOUS TRACING : 03/23/2018 04.40 DOCTOR: Darwin Rojas Interpretating Date/Time 05/17/2018 17:53:47
[2018-05-17] MEDS: Latanoprost 0.005% Opth Drops 2.5 ML Bottle EACH EYE SCH (21:13)
[2018-05-17] MEDS: Amitriptyline 25 MG Tablet PO SCH (21:50)
[2018-05-17 22:45] LABS: Hematocrit 29.4 % (39.0-51.0); Hemoglobin 9.4 gm/dL (13.0-17.0)
[2018-05-18 06:56] LABS: Baso % (Auto) 0.3 % (0.0-2.0); Eos # (Auto) 0.2 th/mm3 (0.0-0.4); Eos % (Auto) 2.6 % (0.0-4.0); Lymph % (Auto) 15.5 % (9.0-44.0); Mean Corpuscular HGB Conc 32.1 % (32.0-36.0); Mean Corpuscular Hemoglobin 27.8 pg (27.0-34.0); Mean Corpuscular Volume 86.6 fL (80.0-100.0); Mean Platelet Volume 7.1 fL (7.0-11.0); Mono # (Auto) 0.6 th/mm3 (0.0-0.9); Mono % (Auto) 10.3 % (0.0-8.0); Neut # (Auto) 4.4 th/mm3 (1.8-7.7); Neut % (Auto) 71.3 % (16.0-70.0); Platelet Count 251 th/mm3 (150-450); Red Blood Count 3.23 mil/mm3 (4.50-5.90); White Blood Count 6.2 th/mm3 (4.0-11.0)
[2018-05-18 07:05] LABS: Potassium 3.4 meq/L (3.5-5.1)
[2018-05-18 07:13] LABS: Albumin 2.5 g/dL (3.4-5.0); Calcium 7.5 mg/dL (8.5-10.1); Carbon Dioxide 26.8 meq/L (21.0-32.0); Magnesium 2.2 mg/dL (1.5-2.5)
[2018-05-18 07:17] LABS: Total Protein 8.4 g/dL (6.4-8.2)
[2018-05-18] MEDS: Brimonidine 0.2% Opth Drops 5 ML Bottle EACH EYE SCH ×3 (08:08→17:23)
[2018-05-18] MEDS: Furosemide 40 MG Tablet PO SCH (08:08)
[2018-05-18] MEDS: Metoprolol Tartrate 50 MG Tablet PO SCH ×2 (08:08→21:07)
[2018-05-18] MEDS: Levothyroxine 150 MCG Tablet PO SCH (08:08)
[2018-05-18] MEDS: Insulin NovoLOG Aspart Correctional Sugar Inj SQ SCH ×4 (08:09→21:53)
[2018-05-18] MEDS: Sod Chloride 0.9% Inj 1,000 ML IV.CONT SCH ×2 (08:09→09:41)
[2018-05-18] MEDS: Pantoprazole Inj 80 MG in Sodium Chlor 0.9% Inj 100 ML IV.CONT SCH ×2 (09:41→16:47)
[2018-05-18] MEDS: Timolol 0.5% Drops 5 ML Bottle LEFT EYE SCH ×2 (09:43→21:08)
--- NOTE | 2018-05-18 09:47 | P.PNIM ---
Subjective Interval history: f/u; anemia in no acute distress. no chest pain, sob or dizziness. no abdominal pain or active GI bleed. Physical Exam Vital signs: Last Vital Signs Temp 97.2 F L 05/18/18 08:00 Pulse 95 H 05/18/18 08:00 Resp 20 05/18/18 08:00 BP 155/73 H 05/18/18 08:00 Pulse Ox 95 05/18/18 08:00 Intake & Output 05/16/18 05/17/18 05/18/18 05/19/18 06:59 06:59 06:59 06:59 Intake Total 1800 / 1800 2210 / 2210 100 / 100 Output Total 400 / 400 6400 / 6400 Balance 1400 / 1400 -4190 / -4190 100 / 100 Weight 84.5 kg 84.2 kg Constitutional no acute distress Routine Respiratory Exam Present CTA bilaterally Routine Cardiovascular Exam Present RRR Routine Abdominal Exam Present soft Routine Extremities Exam Comments: no pedal edema. Routine Neurological Exam Present alert and oriented X3 Results Labs CBC & Chem 7: 05/18/18 06:11 05/18/18 06:11 Assessment and Plan Plan A/P Acute upper GI bleeding Acute symptomatic anemia on top of chronic Hold Plavix for now but continue aspirin due to recent CABG in March. Transfused 2 units PRBCs - continue to monitor H/H. continue PPI s/p EGD with gastritis- awaiting GI f/u and recommendations. Coronary artery disease s/p post CABG x2 in March 2018. Exertional chest pain over the past week Exertional angina is likely demand related secondary to severe anemia. -[employer] Director is Dr. Harry Hernandez, surgeon is Dr. spicer -Troponin less than 0.02. Patient with no active chest pain -Recent echo with preserved ejection fraction, mild valvular disorder December 2017. -Continue beta-angélica, Lasix -Due to GI bleed. We will hold Plavix, continue aspirin Diabetes mellitus. Insulin sliding scale. Left lower lobe consolidating airspace disease with small to moderate effusion -No signs of pneumonia currently. Is likely elected secondary to effusion status post surgery. Will order incentive spirometry and Acapella. -Not unusual to have a left-sided effusion following CABG. Patient does not clinically have pneumonia. We will continue to monitor. Hypothyroidism. Chronic. Continue home medication. Discharge Planning: home when cleared by GI. Progress Note: Quality VTE Deep Vein Thrombosis/Pulmonary Embolism Present on Admission: No
[2018-05-18] MEDS ORDERED: ALPRAZolam 0.25 MG Tablet PO PRN (11:22)
--- NOTE | 2018-05-18 15:10 | P.PNGI ---
Subjective Interval history: feeling better. hb stable , no active bleeding .Colonoscopy scheduled today, or closed today , we will reschedule in am.If active bleeding or hb drops will need to transfer to [facility] for procedure today Physical Exam Vital signs: Vital Signs 05/17/18 15:40 05/17/18 15:50 05/17/18 16:00 Temperature 98.5 F 97.0 F L Pulse Rate 96 H 94 H 84 Respiratory Rate 14 14 19 Blood Pressure 150/60 H 113/53 L 126/64 Pulse Oximetry 98 98 97 05/17/18 16:15 05/17/18 16:41 05/17/18 17:08 Temperature 97.2 F L 98 F 98 F Pulse Rate 85 91 H 90 Respiratory Rate 18 Blood Pressure 150/75 H 139/60 160/78 H Pulse Oximetry 99 95 98 05/17/18 20:00 05/17/18 20:05 05/18/18 00:00 Temperature 95.7 F L 98.2 F Pulse Rate 89 86 Respiratory Rate 20 20 Blood Pressure 172/98 H 152/72 H Pulse Oximetry 99 97 96 05/18/18 04:00 05/18/18 08:00 05/18/18 09:00 Temperature 97.5 F L 97.2 F L Pulse Rate 89 95 H Respiratory Rate 20 20 Blood Pressure 152/67 H 155/73 H Pulse Oximetry 100 95 99 05/18/18 12:00 Temperature 98.1 F Pulse Rate 90 Respiratory Rate 20 Blood Pressure 144/69 H Pulse Oximetry 99 Intake & Output 05/17/18 05/18/18 05/18/18 18:59 06:59 18:59 Intake Total 2110 / 2110 100 / 100 340 / 340 Output Total 400 / 400 6000 / 6000 Balance 1710 / 1710 -5900 / -5900 340 / 340 Weight 84.2 kg Intake: IV 100 / 100 100 / 100 100 / 100 Protonix Inj 80 MG In NS Inj 100 / 100 100 / 100 100 / 100 100 ML @ 10 mls/hr IV.CONT Q10H [facility] Rx#:[id number] Oral 960 / 960 0 / 0 240 / 240 Anesthesia Amount 250 / 250 Intake (Blood Product) Amt 800 / 800 Rbc As-3 Leukoreduced Unit 400 / 400 [id number] Rbc As-3 Leukoreduced Unit 0 / 0 [id number] Rbc As-3 Leukoreduced Unit 400 / 400 [id number] Output: Urine 400 / 400 Urine/Stool Mix 6000 / 6000 Other: # Voids 5 Date of Last Bowel Movement 05/18/18 # Bowel Movements 0 - Constitutional no acute distress - Routine HEENT Exam Head: Present: normocephalic Eye: Present: EOMI ENT: Present: mucous membranes moist - Routine Neck Exam Present: supple - Routine Respiratory Exam Present: decreased breath sounds - Routine Skin Exam Present: intact - Routine Neurological Exam Present: alert, oriented X3 - Routine Psychiatric Exam Present: normal affect Results - Labs CBC & Chem 7: 05/18/18 06:11 05/18/18 06:11 Laboratory Results - last 24 hr 05/17/18 05/17/18 05/17/18 10:02 16:51 22:35 CBC w Diff WBC RBC Hgb Hct MCV MCH MCHC RDW Plt Count MPV Neut % (Auto) Lymph % (Auto) [place] % (Auto) Eos % (Auto) Baso % (Auto) Neut # (Auto) Lymph # (Auto) [place] # (Auto) Eos # (Auto) Baso # (Auto) WBC Differential Differential Comment Fibrinogen 389 H Sodium Potassium Chloride Carbon Dioxide Anion Gap BUN Creatinine Estimated GFR POC Glucose 102 Random Glucose Calcium Phosphorus Magnesium Total Bilirubin Direct Bilirubin Indirect Bilirubin AST ALT Alkaline Phosphatase Total Protein Albumin MTS Gel Crossmatch See Detail 05/17/18 05/18/18 05/18/18 22:35 06:11 06:11 CBC w Diff Auto diff final WBC 6.2 RBC 3.23 L Hgb 9.4 L D 9.0 L Hct 29.4 L 28.0 L MCV 86.6 MCH 27.8 MCHC 32.1 RDW 16.0 Plt Count 251 MPV 7.1 Neut % (Auto) 71.3 H Lymph % (Auto) 15.5 [place] % (Auto) 10.3 H Eos % (Auto) 2.6 Baso % (Auto) 0.3 Neut # (Auto) 4.4 Lymph # (Auto) 1.0 [place] # (Auto) 0.6 Eos # (Auto) 0.2 Baso # (Auto) 0.0 WBC Differential . Differential Comment . Fibrinogen Sodium 140 Potassium 3.4 L Chloride 106 Carbon Dioxide 26.8 Anion Gap 7 BUN 16 Creatinine 0.98 Estimated GFR 74 L POC Glucose Random Glucose 96 Calcium 7.5 L Phosphorus 2.0 L Magnesium 2.2 Total Bilirubin 1.0 Direct Bilirubin 0.3 H Indirect Bilirubin 0.7 AST 21 ALT 12 Alkaline Phosphatase 67 Total Protein 8.4 H Albumin 2.5 L MTS Gel Crossmatch 05/18/18 05/18/18 07:40 11:44 CBC w Diff WBC RBC Hgb Hct MCV MCH MCHC RDW Plt Count MPV Neut % (Auto) Lymph % (Auto) [place] % (Auto) Eos % (Auto) Baso % (Auto) Neut # (Auto) Lymph # (Auto) [place] # (Auto) Eos # (Auto) Baso # (Auto) WBC Differential Differential Comment Fibrinogen Sodium Potassium Chloride Carbon Dioxide Anion Gap BUN Creatinine Estimated GFR POC Glucose 107 116 H Random Glucose Calcium Phosphorus Magnesium Total Bilirubin Direct Bilirubin Indirect Bilirubin AST ALT Alkaline Phosphatase Total Protein Albumin MTS Gel Crossmatch Assessment and Plan - Plan Anemia -gi bleeding -egd negative needs colonoscopy s/p cabg needs anticoagulation Recommendations colonoscopy in am clear liquids today npo after midnight if active bleeding or hb drops transfer to [facility] for emergency procedure if active bleeding -bleeding scan transfuse prn to keep hb above 9
[2018-05-18] MEDS: Latanoprost 0.005% Opth Drops 2.5 ML Bottle EACH EYE SCH (17:15)
[2018-05-18] MEDS: Amitriptyline 25 MG Tablet PO SCH (21:07)
[2018-05-19] MEDS: Pantoprazole Inj 80 MG in Sodium Chlor 0.9% Inj 100 ML IV.CONT SCH (01:45)
[2018-05-19] MEDS: Levothyroxine 150 MCG Tablet PO SCH (05:20)
[2018-05-19 06:52] LABS: Hematocrit 28.9 % (39.0-51.0); Hemoglobin 9.4 gm/dL (13.0-17.0)
[2018-05-19] MEDS: Insulin NovoLOG Aspart Correctional Sugar Inj SQ SCH (07:38)
[2018-05-19] MEDS ORDERED: Chlorhexidine Gluconate 2% 1 Pack (2 Cloths) TOPICAL ONE (08:35)
--- NOTE | 2018-05-19 08:35 | GIPROC ---
[address], [address] COLONOSCOPY PROCEDURE REPORT EXAM DATE: 05/19/2018 PATIENT NAME: Devyn Lambert MR #: [id number] BIRTHDATE: 1940 ENDOSCOPIST: Quin Esparza MD ORDER #: [id number] VICE PRESIDENT OF OPERATIONS: Lino Collado and Kalani Perea STATUS: inpatient INDICATIONS: The patient is a 77 yr old male here for a colonoscopy due to gi bleeding , anemia PROCEDURE PERFORMED: Colonoscopy, diagnostic MEDICATIONS: None and Per Anesthesia. PREP QUALITY: poor PREP TYPE:Other: ESTIMATED BLOOD LOSS: None CONSENT: The patient understands the risks and benefits of the procedure and understands that these risks include, but are not limited to: sedation, allergic reaction, infection, perforation and/or bleeding. Alternative means of evaluation and treatment include, among others: physical exam, x-rays, and/or surgical intervention. The patient elects to proceed with this endoscopic procedure. medical equipment was checked for proper function. Hand hygiene and appropriate measures for infection prevention was taken. After the risks, benefits and alternatives of the procedure were thoroughly explained, Informed consent was verified, confirmed and timeout was successfully executed by the treatment team. A digital exam revealed hemorrhoids The Pentax [id number] endoscope was introduced through the anus and advanced to the cecum, which was identified by both the appendix and ileocecal valve. The instrument was then slowly withdrawn as the colon was fully examined. COLON FINDINGS: Diverticulosis sigmoid,descending. Retroflexed views revealed internal hemorrhoids and Retroflexed views revealed medium internal hemorrhoids The scope was then completely withdrawn from the patient and the procedure terminated. PROCEDURE WITHDRAWAL TIME:7minutes ADVERSE EVENTS: There were no complications. IMPRESSIONS: 1. Diverticulosis sigmoid,descending 2. Retroflexed views revealed internal hemorrhoids 3. Retroflexed views revealed medium internal hemorrhoids 4. Revealed hemorrhoids RECOMMENDATIONS: 1. Benefiber 2 tsp daily 2. Probiotics from any C or health food store 3. Yearly rectal exams 4. Resume diet ok for anticoagulation capsule endoscopy op fu gi 1-2 weeks ok to in home from gi point RECALL: Return 3 months Colonoscopy Quin Esparza MD eSigned: Quin Esparza MD 05/19/2018 8:35 AM cc: PATIENT NAME: Devyn Lambert MR#: [id number]
[2018-05-19 08:52] VITALS: RESP 16
[2018-05-19] MEDS ORDERED: Sodium Chlor 0.9% Inj 500 ML IV.SIG SCH (09:00)
[2018-05-19 09:09] VITALS: BP 146/83; PULSE 92; TEMP 98; O2SAT 95
[2018-05-19] MEDS: Brimonidine 0.2% Opth Drops 5 ML Bottle EACH EYE SCH (09:32)
[2018-05-19] MEDS: Furosemide 40 MG Tablet PO SCH (09:32)
[2018-05-19] MEDS: Metoprolol Tartrate 50 MG Tablet PO SCH (09:32)
--- NOTE | 2018-05-19 09:35 | P.PNIM ---
Subjective Interval history: in no acute distress. had colonoscopy earlier. no abdominal pain. no active GI bleed. wants to go home today. Physical Exam Vital signs: Last Vital Signs Temp 98 F 05/19/18 09:06 Pulse 92 H 05/19/18 09:06 Resp 16 05/19/18 09:06 BP 146/83 H 05/19/18 09:06 Pulse Ox 95 05/19/18 09:06 Intake & Output 05/17/18 05/18/18 05/19/18 05/20/18 06:59 06:59 06:59 06:59 Intake Total 1800 / 1800 2210 / 2210 1500 / 1500 300 / 300 Output Total 400 / 400 6400 / 6400 Balance 1400 / 1400 -4190 / -4190 1500 / 1500 300 / 300 Weight 84.5 kg 84.2 kg 85.2 kg Constitutional no acute distress Routine Respiratory Exam Present CTA bilaterally Routine Cardiovascular Exam Present RRR Routine Abdominal Exam Present soft Routine Extremities Exam Comments: no pedal edema. Routine Neurological Exam Present alert and oriented X3 Results Labs CBC & Chem 7: 05/19/18 05:56 05/18/18 06:11 Assessment and Plan Plan A/P Acute upper GI bleeding Acute symptomatic anemia on top of chronic Transfused 2 units PRBCs - H/H stable. s/p EGD with gastritis- s/p colonoscopy with diverticulosis. d/w today and patient was cleared for discharge-ok to resume antiplatelets per GI. Coronary artery disease s/p post CABG x2 in March 2018. Exertional chest pain over the past week Exertional angina is likely demand related secondary to severe anemia. -Geophysical Laboratory Chief is Dr. Harry Hernandez, surgeon is Dr. spicer -Troponin less than 0.02. Patient with no active chest pain -Continue beta-angélica, Lasix -resume aspirin and plavix. Diabetes mellitus. Insulin sliding scale. Left lower lobe consolidating airspace disease with small to moderate effusion -No signs of pneumonia currently. Is likely elected secondary to effusion status post surgery. Will order incentive spirometry and Acapella. -Not unusual to have a left-sided effusion following CABG. Patient does not clinically have pneumonia. We will continue to monitor. Hypothyroidism. Chronic. Continue home medication. Discharge Planning: home today with f/u with pcp and GI. see med list. d/w the patient, RN and . Progress Note: Quality VTE Deep Vein Thrombosis/Pulmonary Embolism Present on Admission: No
--- NOTE | 2018-05-19 09:37 | P.DS ---
DS: Providers Date of admission: 05/16/18 16:22 Primary care physician: Nixon Mata MD Consults: 05/16/18 16:21 Consult to Gastroenterology Routine Consulting Provider: Gael Barlow Preferred Senior Buyer:: Quin Esparza Reason for Consultation: GIB. melena. recent CABG Notified:: Service Spoke with:: marixa Date Notified:: 05/16/18 Time Notified:: 17:01 Ordering Provider: WILLEM 05/17/18 09:47 HUB Only Consult Order Routine Consulting Provider: Malvin Coombs Brief History from admission: There is 77-year-old male status post CABG x2 with SANDS to LAD, SVG to OM in March 2018 who presents with a 3-week history of progressively worsening shortness of breath with exertion, generalized fatigue, black tarry bowel movements. Patient also reports some dull chest pain with exertion over the past few weeks, however not at rest, and denies any chest pain currently. Patient otherwise has no complaints. No fevers, chills, lightheadedness, dizziness, nausea, vomiting. DS: Summary Acute upper GI bleeding Acute symptomatic anemia on top of chronic Transfused 2 units PRBCs - H/H stable. s/p EGD with gastritis- s/p colonoscopy with diverticulosis. patient was cleared for discharge-ok to resume antiplatelets per GI. Coronary artery disease s/p post CABG x2 in March 2018. Exertional chest pain over the past week Exertional angina is likely demand related secondary to severe anemia. -Bowling Ball Molder is Dr. Harry Hernandez, surgeon is Dr. spicer -Troponin less than 0.02. Patient with no active chest pain -Continue beta-angélica, Lasix -resume aspirin and plavix. Diabetes mellitus. Insulin sliding scale. Left lower lobe consolidating airspace disease with small to moderate effusion -No signs of pneumonia currently. Is likely elected secondary to effusion status post surgery. Will order incentive spirometry and Acapella. -Not unusual to have a left-sided effusion following CABG. Patient does not clinically have pneumonia. We will continue to monitor. Hypothyroidism. Chronic. Continue home medication. Time Spent with Patient Total time spent providing and/or coordinating discharge services:< 35 min. Quality: VTE Deep Vein Thrombosis/Pulmonary Embolism Present on Admission: No Exam Narrative Exam Narrative: patient in no acute distress and is comfortable. abdomen is soft with no tenderness. bilateral air entry present on lung exam. no pedal edema. Results Procedures completed during hospitalization: EGD/colonoscopy. Labs on day of discharge: Labs from last 24 hours 05/19/18 05/19/18 05/18/18 07:01 05:56 21:39 Hgb 9.4 L Hct 28.9 L POC Glucose 106 108 05/18/18 11:44 Hgb Hct POC Glucose 116 H Impressions ITS Impressions Chest X-Ray 05/16/18 12:59 CONCLUSION: Left basilar opacity likely representing a small pleural effusion with associated atelectasis and/or consolidation. An abnormality was located in this area on the prior examination and could be a chronic finding versus a recurrent abnormality. Chest CTA 05/16/18 14:43 CONCLUSION: 1. No evidence of acute pulmonary emboli. 2. Left lower lobe consolidating airspace disease with associated small to moderate effusion 3. Moderate calcific coronary artery disease. Discharge Plan Discharge Disposition Patient Disposition: Discharge Home Discharge Condition Condition: Stable Discharge Order Discharge Orders: Discharge Order (Routine); Ordered 05/19/18 Ordered By: Isaiah Crocker Physicians Team Primary Care Provider: Nixon Mata Attending Provider: Isaiah Crocker Other Providers: Gael Barlow [employer] Rxs /Orders / Referrals /Forms Prescriptions: New pantoprazole [Protonix] 40 mg tablet,delayed release (DR/EC) 40 mg PO DAILY Qty: 30 RF: 0 Continue latanoprost 0.005 % Drops 1 drp OPHTHALMIC (EYE) QPM RF: 0 metformin 500 mg Tablet 500 mg PO BID RF: 0 alendronate 70 mg Tablet 70 mg PO QWEEK RF: 0 lorazepam 0.5 mg Tablet 1 tab PO BID PRN (Reason: Anxiety) RF: 0 levothyroxine 150 mcg Tablet 150 mcg PO DAILY RF: 0 brimonidine 0.2 % Drops 1 drp OPHTHALMIC (EYE) TID RF: 0 metoprolol tartrate 50 mg Tablet 50 mg PO BID RF: 0 glipizide 5 mg Tablet 5 mg PO DAILY RF: 0 omega-3 fatty acids-fish oil [Fish Oil] 360-1,200 mg Capsule 1 cap PO DAILY RF: 0 clopidogrel [Plavix] 75 mg Tablet 75 mg PO DAILY Qty: 30 RF: 2 ferrous sulfate [FeroSul] 325 mg (65 mg iron) Tablet 325 mg PO DAILY Qty: 30 RF: 0 polymyxin B sulf-trimethoprim [Polytrim] 10,000 unit- 1 mg/mL Drops 1 drop EACH EYE Q3H RF: 0 aspirin 81 mg Tablet,Chewable 81 mg PO DAILY Qty: 30 RF: 2 timolol maleate 0.5 % Drops 1 drops LEFT EYE BID RF: 0 gpdwltpk-ggnm-VF-calcium-mins [Thera M Plus (ferrous fumarat)] 9 mg iron-400 mcg Tablet 1 tab PO DAILY Qty: 30 RF: 2 furosemide [Lasix] 20 mg Tablet 40 mg PO DAILY Qty: 7 RF: 1 potassium chloride [Klor-Con 10] 10 mEq Tablet Extended Release 10 meq PO DAILY Qty: 7 RF: 1 docusate sodium [DOK] 100 mg capsule 100 mg PO DAILY RF: 0 atorvastatin 20 mg Tablet 80 mg PO QPM RF: 0 ondansetron HCl [Zofran] 8 mg Tablet 8 mg PO TID PRN (Reason: Sleep) RF: 0 amitriptyline 25 mg Tablet 25 mg PO HS RF: 0 melatonin 10 mg Tablet 10 mg PO HS PRN (Reason: Sleep) RF: 0 Referrals: Nixon Mata MD [Primary Care Provider] - See Instructions ( Please call the physician's office to book F/U APT AFTER D/C) Discharge Instructions Patient Printed Instructions: Pantoprazole (By mouth), Anemia (DC), Colonoscopy (DC) Additional Instructions: follow up with md esparza within one week. Status ED Status: Left Department Discharge Information Discharge Date/Time: 05/19/18 10:44
== END 2018-05-19 10:44 | disposition home or self-care (01) | DRG 378 ==
LOC: PHEDA 12:30 → PHED 12:30 → PH3 19:20
PROVIDERS: ADMIT Internal Medicine; ATTEND Internal Medicine
PROC: PANENDO (2018-05-17 15:21)
PROC: COLONOS (2018-05-19 08:16)
CPT/HCPCS: 36430; 71010; 71045; 71275; 80053; 80069; 80076; 81001; 82550; 82948; 82962; 83520; 83690; 83735; 83880; 84484; 85014; 85018; 85025; 85379; 85384; 85610; 85730; 86850; 86900; 86901; 86923; 90774; 93005; 94150; 94667; 96374; 99285; C8952; C9113; J1940; J2704; J7030; J7050; P9016; Q9967